=== PATIENT | female | born 1950 | race Caucasian/White ===

== ENCOUNTER 2019-02-18 17:13 | Inpatient (IN) | payer MEDICARE, OTHER, SELFPAY ==
[2019-02-18] VITALS (11 sets, daily range): BP systolic 140–190; BP diastolic 53–71; PULSE 73–78; RESP 16–24; TEMP 37.5–37.6; O2SAT 82–98; BMI 27.4
--- NOTE | 2019-02-18 17:49 | ED_ITS ---
Entered by Corine Guillen, acting as scribe for Feb 18, 2019 17:13 HPI - SOB/Dyspnea General: Chief Complaint: Shortness of Breath/Dyspnea Stated Complaint: cough, low o2 Time Seen by Provider: 02/18/19 17:49 Source: patient and family Mode of arrival: ambulatory Limitations: no limitations History of Present Illness: HPI Narrative: 68 yo female presents to ED with complaints of shortness of breath. The patient states she was sent to [facility] from the dialysis clinic today due to her shortness of breath. The patient said [facility] was unable to get her oxygen level up so they instructed the patient to come to the ER. The patient had cough beginning Thursday that had pretty much went away yesterday, but early this morning she woke with an increased cough. MD elicited complaint: shortness of breath and cough Onset (ago): day(s) (today) Context: recent illness Timing: constant Severity: severe Exacerbating factors: nothing Relieving factors: nothing Known history of: other (renal failure) Associated symptoms: Reports chest congestion; Deny abdominal pain, chest pain, diaphoresis, dizziness, extremity pain, fever(s), nausea, palpitations, polydipsia, syncope or vomiting Related Data: Home oxygen amount: none Review of Systems General: Reports: other (negative unless marked) Const: Denies: fever, chills, body aches, fatigue, malaise or diaphoresis Eyes: Denies: change in vision or blurry vision ENMT: Denies: throat pain, painful swallowing, hoarseness, ear pain, ear discharge, Change in hearing or nasal discharge Card: Denies: chest pain, palpitations, irregular heart rhythm, syncope or pre-syncope Resp: Reports: chest congestion GI: Denies: abdominal pain, nausea, vomiting, vomiting blood, coffee grounds in vomit, diarrhea, constipation, cramping, blood in stool or black tarry stool : Denies: flank pain, painful urination, urinary frequency, urinary urgency, decreased urine ouput, urinary incontinence or blood in urine Musc: Denies: neck pain, back pain, extremity pain, extremity swelling, joint pain, joint swelling, joint warmth or joint stiffness Skin/Breast: Denies: rash, skin tenderness or yellow skin Neuro: Denies: headache, numbness in extremities, weakness in extremities, changes in sensation, lack of coordination, difficulty walking, dizziness, vertigo or confusion Endo: Denies: excessive thirst, tired all the time, cold intolerance, excessive sweating, flushing or hot flashes Ben/Lymph: Denies: easy bruising, easy bleeding, petechiae or enlarged lymph nodes All/Imm: Denies: hives, throat swelling, tongue swelling, facial swelling or acute wheezing PFSH ED PFSH: Statuses (acute, chronic, etc) shown below reflect problem list status as previously entered and may not be historically accurate Social History Smoking and tobacco status: never smoked Alcohol intake: never Physical Exam Const: COMMON NORMALS: no apparent distress, oriented x3, no limitations, healthy appearing and well nourished EXAM LIMITATIONS: no altered mental status GENERAL APPEARANCE: cooperative, well kempt and well developed ORIENTATION/CONSCIOUSNESS: Yes awake HENMT: COMMON NORMALS: normocephalic, head/scalp atraumatic, hearing grossly normal bilaterally, external ears normal, EAC's normal, external nose normal and moist oral mucous membranes HEAD & SCALP: normal to inspection, normocephalic and atraumatic FACE & SINUS: normal facial exam and face symmetric NOSE: external nose normal and nares normal EXTERNAL EAR: Yes external ears normal EXTERNAL AUDITORY CANAL: EAC's normal MOUTH: oral and palatal mucosa normal and tongue normal Eye: COMMON NORMALS: PERRL, EOMs intact bilaterally, conjunctivae normal and no scleral icterus GENERAL EYE: normal appearance of both eyes and normal light reflex CONJUNCTIVA: Yes conjunctivae normal SCLERA: sclerae normal CORNEA: Yes corneas normal PUPIL: Yes PERRL DIRECT OPHTHALMOSCOPY: Yes normal light reflex Neck/C-Spine: COMMON NORMALS: full ROM, no lymphadenopathy, supple, no meningeal signs and no JVD GENERAL: Yes normal visual inspection and Yes trachea midline CERVICAL SPINE: Yes cervical ROM normal Chest: COMMONS NORMALS: inspection of chest normal and palpation of chest normal Resp: COMMON NORMALS: normal respiratory effort, no retractions and no use of accessory muscles EFFORT & INSPECTION: Yes able to speak in complete sentences AUSCULTATION: rhonchi, wheezes and diminished lung sounds Cardio: COMMON NORMALS: no JVD, regular rate, regular rhythm, S1 normal heart sound, S2 normal heart sound, no gallops, no clicks, no murmurs and no rub JUGULAR VENOUS DISTENTION: no JVD RATE: regular rate RHYTHM: regular rhythm HEART SOUNDS: S1 normal and S2 normal GI: COMMON NORMALS: soft to palpation, non-tender, no hepatosplenomegaly and no masses INSPECTION: Yes normal to inspection PALPATION: Yes soft and Yes no hepatosplenomegaly : COMMON NORMALS: Yes no CVA tenderness BLADDER/KIDNEY EXAM: Yes no CVA tenderness Back/Pelvis: COMMON NORMALS: no CVA tenderness, thoracic and lumbar spine normal to inspection, no thoracic nor lumbar tenderness and thoraco-lumbar ROM n ormal Extremity: COMMON NORMALS: normal to inspection, full ROM, normal capillary refill, no joint enlargement, no clubbing, cyanosis or edema and no calf tenderness Neuro: COMMON NORMALS: oriented x3, CN's II-XII intact bilaterally, moves all extremities, no focal motor deficits and no sensory deficits noted MENINGEAL SIGNS: Yes no meningeal signs Psych: COMMON NORMALS: mental status grossly normal, thought process normal, cooperative, affect normal, speech normal and activity/motor behavior normal APPEARANCE: Yes well kempt SPEECH: Yes normal speech THOUGHT PROCESS: normal thought process Skin: COMMON NORMALS: no rashes or lesions noted, skin turgor normal, no jaundice, no petechiae and no mottling GENERAL SKIN EXAM: no rashes or lesions noted and turgor normal Course Vital Signs: Vital signs: Vital Signs Temperature 99.7 F H 02/18/19 17:24 Pulse Rate 73 02/18/19 18:43 Respiratory Rate 18 02/18/19 21:33 Blood Pressure 173/60 02/18/19 17:24 Pulse Oximetry 92 02/18/19 21:33 MDM - SOB/Dyspnea MDM Narrative: Medical decision making narrative: Lady is a very nice 68-year-old female who comes in for shortness of breath. She has a cough that is worse than her normal and it is productive of yellow phlegm. She is wheezing. She feels better after breathing treatments here. She is mildly hypoxic and had mild respiratory distress that has resolved. She is relatively immunosuppressed as she has end-stage renal disease and is on dialysis. Her chest x-ray could show vascular congestion but she had a full course of dialysis today so the concern of pneumonia I think is more likely. The patient is also immune suppressed for her rheumatoid arthritis. I reviewed the case in full with Dr. Vanessa who is agreeable to admission for further evaluation and care. Lab Data: Labs: Lab Results 02/18/19 02/18/19 02/18/19 Range/Units 18:07 18:07 18:07 WBC 6.8 (4.0-10.0) 10^3/ uL RBC 3.25 L (4.1-5.3) 10^6/u L Hgb 10.2 L (11.5-15.3) g/dL Hct 33.1 L (37.0-47.0) % MCV 101.8 H (81-99) fL MCH 31.4 (28.0-34.0) pg MCHC 30.8 (30.0-36.0) g/dL RDW 14.8 (12.1-15.1) % Plt Count 128 L (130-400) 10^3/c mm MPV 11.1 H (7.4-10.4) fL Neut % (Auto) 79.5 % Lymph % (Auto) 12.0 % Mingo % (Auto) 7.5 % Eos % (Auto) 0.4 % Baso % (Auto) 0.3 % Neut # (Auto) 5.4 (1.8-7.7) 10^3/u L Lymph # (Auto) 0.8 (0.8-4.8) 10^3/u L Mingo # (Auto) 0.5 (0.2-0.9) 10^3/u L Eos # (Auto) 0.0 (0.0-0.8) 10^3/u L Baso # (Auto) 0.0 (0.0-0.1) 10^3/u L Nucleated RBC % (a uto) 0 % Nucleated RBCs # 0.0 /100WBC PT 13.80 H (10.5-13.3) SECO NDS INR 1.03 (0.8-1.2) Sodium 134 L (136-145) mmol/L Potassium 3.4 L (3.5-5.1) mmol/L Chloride 90 L (98-107) mmol/L Carbon Dioxide 30 H (22-29) mmol/L Anion Gap 17.4 (5-19) BUN 27 H (8-23) mg/dL Creatinine 3.4 H (0.5-0.9) mg/dL GFR Calculation 13.4 L (90-130) mL/min Glucose 107 H (74-106) mg/dL POC Glucose (70-110) mg/dL Lactic Acid (0.5-2.2) mmol/L Calcium 10.0 (8.8-10.2) mg/Dl Magnesium 2.2 (1.7-2.3) mg/dL Total Bilirubin 0.2 (0.15-1.2) mg/dL AST 32 (0-32) U/L ALT 29 (0-33) U/L Alkaline Phosphata se 162 H (35-105) IU/L Troponin T Baselin e (0-10) ng/mL Troponin T 120 Min enterprise (0-10) ng/mL Delta Troponin T (0-10) ABS# NT-Pro-B Natriuret Pep 27666 H (0-125) pg/mL Total Protein 8.1 (6.6-8.7) g/dL Albumin 4.2 (3.5-5.2) g/dL Globulin 3.9 (1.3-4.6) g/dL 02/18/19 02/18/19 02/18/19 Range/Units 18:07 18:07 20:07 WBC (4.0-10.0) 10^3/ uL RBC (4.1-5.3) 10^6/u L Hgb (11.5-15.3) g/dL Hct (37.0-47.0) % MCV (81-99) fL MCH (28.0-34.0) pg MCHC (30.0-36.0) g/dL RDW (12.1-15.1) % Plt Count (130-400) 10^3/c mm MPV (7.4-10.4) fL Neut % (Auto) % Lymph % (Auto) % Mingo % (Auto) % Eos % (Auto) % Baso % (Auto) % Neut # (Auto) (1.8-7.7) 10^3/u L Lymph # (Auto) (0.8-4.8) 10^3/u L Mingo # (Auto) (0.2-0.9) 10^3/u L Eos # (Auto) (0.0-0.8) 10^3/u L Baso # (Auto) (0.0-0.1) 10^3/u L Nucleated RBC % (a uto) % Nucleated RBCs # /100WBC PT (10.5-13.3) SECO NDS INR (0.8-1.2) Sodium (136-145) mmol/L Potassium (3.5-5.1) mmol/L Chloride (98-107) mmol/L Carbon Dioxide (22-29) mmol/L Anion Gap (5-19) BUN (8-23) mg/dL Creatinine (0.5-0.9) mg/dL GFR Calculation (90-130) mL/min Glucose (74-106) mg/dL POC Glucose (70-110) mg/dL Lactic Acid 0.8 (0.5-2.2) mmol/L Calcium (8.8-10.2) mg/Dl Magnesium (1.7-2.3) mg/dL Total Bilirubin (0.15-1.2) mg/dL AST (0-32) U/L ALT (0-33) U/L Alkaline Phosphata se (35-105) IU/L Troponin T Baselin e 17 H (0-10) ng/mL Troponin T 120 Min enterprise 19.52 H (0-10) ng/mL Delta Troponin T 2.52 (0-10) ABS# NT-Pro-B Natriuret Pep (0-125) pg/mL Total Protein (6.6-8.7) g/dL Albumin (3.5-5.2) g/dL Globulin (1.3-4.6) g/dL 02/18/19 Range/Units 21:39 WBC (4.0-10.0) 10^3/ uL RBC (4.1-5.3) 10^6/u L Hgb (11.5-15.3) g/dL Hct (37.0-47.0) % MCV (81-99) fL MCH (28.0-34.0) pg MCHC (30.0-36.0) g/dL RDW (12.1-15.1) % Plt Count (130-400) 10^3/c mm MPV (7.4-10.4) fL Neut % (Auto) % Lymph % (Auto) % Mingo % (Auto) % Eos % (Auto) % Baso % (Auto) % Neut # (Auto) (1.8-7.7) 10^3/u L Lymph # (Auto) (0.8-4.8) 10^3/u L Mingo # (Auto) (0.2-0.9) 10^3/u L Eos # (Auto) (0.0-0.8) 10^3/u L Baso # (Auto) (0.0-0.1) 10^3/u L Nucleated RBC % (a uto) % Nucleated RBCs # /100WBC PT (10.5-13.3) SECO NDS INR (0.8-1.2) Sodium (136-145) mmol/L Potassium (3.5-5.1) mmol/L Chloride (98-107) mmol/L Carbon Dioxide (22-29) mmol/L Anion Gap (5-19) BUN (8-23) mg/dL Creatinine (0.5-0.9) mg/dL GFR Calculation (90-130) mL/min Glucose (74-106) mg/dL POC Glucose 103 (70-110) mg/dL Lactic Acid (0.5-2.2) mmol/L Calcium (8.8-10.2) mg/Dl Magnesium (1.7-2.3) mg/dL Total Bilirubin (0.15-1.2) mg/dL AST (0-32) U/L ALT (0-33) U/L Alkaline Phosphata se (35-105) IU/L Troponin T Baselin e (0-10) ng/mL Troponin T 120 Min enterprise (0-10) ng/mL Delta Troponin T (0-10) ABS# NT-Pro-B Natriuret Pep (0-125) pg/mL Total Protein (6.6-8.7) g/dL Albumin (3.5-5.2) g/dL Globulin (1.3-4.6) g/dL Imaging Data^: CXR: My impression: Pulmonary vascular congestion versus atypical pneumonia. EKG Data^: EKG 1: Attestation: I personally reviewed and interpreted this EKG as follows: (EKG performed and read at 1815 -normal sinus rhythm at 75 beats a minute, nonspecific ST-T wave changes.) Discharge Plan Discharge Patient Disposition: Placed in Observation Admit Provider: Ale Pina Clinical Impression: Community acquired pneumonia Condition: Stable Interventions: ED Discharge Assessment Last Done: 02/18/19 22:10 Coding Level of Care Code ED Car Stower for Chg Fwd The documentation recorded by the Wilmer ruiz Valerie R, accurately reflects the service I personally performed and the decisions made by Lázaro martinez Eli N Feb 18, 2019 17:13
--- NOTE | 2019-02-18 17:49 | XRR_ITS ---
PROCEDURE INFORMATION: Exam: XR Chest, 1 View Exam date and time: 02/18/2019 5:55 PM Age: 68 years old Clinical indication: Cough and fever TECHNIQUE: Imaging protocol: XR of the chest Views: 1 view. COMPARISON: CR Chest 1 [place] [id number] 06/02/2018 5:40 PM FINDINGS: Lungs: In the retrocardiac medial left lower lobe, there is a subtle area of opacity new since the prior exam concerning for small infiltrate or atelectasis. Central vessels are mildly prominent with cephalization of flow and probable trace interstitial edema. Pleural space: Unremarkable. No pleural effusion. No pneumothorax. Heart/Mediastinum: The heart is enlarged. Bones/joints: There is osteopenia with severe degenerative changes in the shoulders and spine. There is a stable chondroid type lesion of the proximal right humerus measuring 5.6 cm in length. This has characteristics of a chondroid lesion such as an enchondroma without definite aggressive characteristics by plain film. XR/XR chest 1V portable [id number] IMPRESSION: 1. New subtle opacity in the left lower lobe concerning for atelectasis versus infiltrate. 2. Central vessels are mildly prominent with cephalization of flow and probable trace interstitial edema. 3. Unchanged large chondroid matrix lesion proximal right humerus. 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 Please note however that lesions measuring over 3 cm in size do have an increased risk of malignant degeneration. If there is clinical history a shoulder pain, MRI with and without contrast would be recommended to further characterize the abnormality.
--- NOTE | 2019-02-18 17:50 | ECG_ITS ---
Measurements Intervals [place] Rate: 69 P: 21 MS: 178 QRS: -17 QRSD: 106 T: 26 QT: 460 QTc: 496 SINUS RHYTHM WITH OCCASIONAL SUPRAVENTRICULAR PREMATURE COMPLEXES VOLTAGE CRITERIA FOR LVH [MEETS CRITERIA IN ONE OF: R(aVL), S(V1), R(V5), R(V5/V6) +S(V1)] PROLONGED QT INTERVAL INTERPRETATION BASED ON A DEFAULT AGE OF 40 YEARS Compared to ECG 06/02/2018 20:42:02 No significant changes Electronically Signed On 02-19-2019 16:44:22 JOINTER MACHINE OPERATOR by Dali Farrell M.D. [id number]
[2019-02-18] MEDS: ipratropium-albuterol 3 mL Neb 9 ML INHALATION (18:27)
[2019-02-18 18:36] LABS: INR 1.03 (0.8-1.2)
[2019-02-18 18:45] LABS: Lactic Sepsis W/Reflex 0.8 mmol/L (0.5-2.2)
[2019-02-18 18:49] LABS: Troponin(5th) Baseline 17 ng/mL (0-10)
[2019-02-18 18:51] LABS: Basophils % 0.3 %; Eosinophils % 0.4 %; Hematocrit 33.1 % (37.0-47.0); Hemoglobin 10.2 g/dL (11.5-15.3); Lymphocytes # 0.8 10^3/uL (0.8-4.8); Mean Corpuscular HGB Conc 30.8 g/dL (30.0-36.0); Mean Corpuscular Hemoglobin 31.4 pg (28.0-34.0); Mean Corpuscular Volume 101.8 fL (81-99); Mean Platelet Volume 11.1 fL (7.4-10.4); Monocytes # 0.5 10^3/uL (0.2-0.9); Monocytes % 7.5 %; Neutrophils # 5.4 10^3/uL (1.8-7.7); Neutrophils % 79.5 %; Nucleated Red Blood Cells % 0 %; Platelet Count 128 10^3/cmm (130-400); Red Blood Count 3.25 10^6/uL (4.1-5.3); Red Cell Distribution Width 14.8 % (12.1-15.1); White Blood Count 6.8 10^3/uL (4.0-10.0)
[2019-02-18 18:56] LABS: Alanine Aminotransferase 29 U/L (0-33); Albumin Level 4.2 g/dL (3.5-5.2); Alkaline Phosphatase 162 IU/L (35-105); Anion Gap 17.4 (5-19); Aspartate Amino Transferase 32 U/L (0-32); Blood Urea Nitrogen 27 mg/dL (8-23); Carbon Dioxide 30 mmol/L (22-29); Chloride 90 mmol/L (98-107); Globulin 3.9 g/dL (1.3-4.6); Glomerular Filtration Rate 13.4 mL/min (90-130); Glucose 107 mg/dL (74-106); Magnesium 2.2 mg/dL (1.7-2.3); NT Pro B Type Natriuretic Pept 10287 pg/mL (0-125); Potassium 3.4 mmol/L (3.5-5.1); Sodium 134 mmol/L (136-145); Total Bilirubin 0.2 mg/dL (0.15-1.2); Total Protein 8.1 g/dL (6.6-8.7)
--- NOTE | 2019-02-18 19:50 | ECG_ITS ---
Measurements Intervals [place] Rate: 76 P: 3 [place]: 169 QRS: -18 QRSD: 106 T: 54 QT: 357 QTc: 403 SINUS RHYTHM WITH OCCASIONAL SUPRAVENTRICULAR PREMATURE COMPLEXES LEFT VENTRICULAR HYPERTROPHY AND ST-T CHANGE [VOLTAGE CRITERIA PLUS ST/T AB ABNORMALITY] Compared to ECG 06/02/2018 20:42:02 ST (T wave) deviation now present Prolonged QT interval no longer present Electronically Signed On 02-19-2019 16:50:23 CAUSTIC OPERATOR by Dali Farrell M.D. [id number] f
--- NOTE | 2019-02-18 20:00 | PC.NURSE ---
IV ACCESS ATTEMPTED X'S 2 STICKS. 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 PT TOLERATING IV ATTEMPTS POORLY. DR HOOPER NOTIFIED, INSTRUCTED TO CONTINUE TO TRY FOR IV ACCESS PT NEEDS MEDICATIONS THAT HAVE BEEN ORDERED.
[2019-02-18] MEDS: piperacillin-tazobactam 3.375 GM in sodium chloride 0.9% (plus) 50 ML IV (20:08)
[2019-02-18 20:38] LABS: Troponin 5 2HR 19.52 ng/mL (0-10); Troponin 5 2HR Delta 2.52 ABS# (0-10)
[2019-02-18] MEDS: morphine 4 mg/mL SDV 1 mL 2 MG IVP (21:33)
[2019-02-18] MEDS: ondansetron 2 mg/ML SDV 2 mL 4 MG IVP (21:34)
[2019-02-18 21:45] LABS: Glucose Point of Care 103 mg/dL (70-110)
[2019-02-18 22:13] LABS: Urine Appearance Bloody (CLEAR); Urine Color Red (Yellow); pH Urine 6 (5-7)
[2019-02-18 22:14] LABS: Add Urine Culture? Yes; Bacteria Urine 2+; Bilirubin Urine 1+ (NEGATIVE); Blood Urine 3+ (Negative); Glucose Urine UA Norm (Normal); Ketones Urine 1+ (Negative); Leukocyte Esterase Urine 2+ (Negative); Nitrate Urine Negative (Negative); Protein Urine 3+ (Negative); RBC Urine TOO NUMEROUS TO CNT /hpf (0-2); Urobilinogen Urine Norm (Negative)
--- NOTE | 2019-02-18 23:50 | ECG_ITS ---
Measurements Intervals [place] Rate: 75 P: 68 [place]: 169 QRS: 15 QRSD: 97 T: 40 QT: 413 QTc: [address] DEPRESSION [0.05+ mV ST DEPRESSION] Compared to ECG 06/02/2018 20:42:02 ST (T wave) deviation now present Left ventricular hypertrophy no longer present Prolonged QT interval no longer present Electronically Signed On 02-19-2019 16:49:58 COLLECTION CORRESPONDENT by Dali Farrell M.D. [email or web address]
[2019-02-19] VITALS (17 sets, daily range): BP systolic 104–192; BP diastolic 58–88; PULSE 57–77; RESP 17–20; TEMP 36.5–37.5; O2SAT 92–98; BMI 28.0
--- NOTE | 2019-02-19 00:09 | PC.PHAR ---
Zosyn dose is adjusted from 3.375gm IVPB every 8 hours to 3.375gm IVPB every 12 hours due to creatinine clearance of 11.37.
[2019-02-19 01:02] LABS: Troponin 5 6HR 20.84 ng/L (0-10); Troponin 5 6HR Delta 3.84 ng/L (0-12)
[2019-02-19 02:43] LABS: Influenza A by IFA Negative (Negative); Influenza B by IFA Negative (Negative)
--- NOTE | 2019-02-19 04:57 | PM.HP ---
Providers/Chief Complaint Admitting Physician: Ale Pina MD Primary Care Provider: Erwin Layne MD Chief Complaint: cough, low o2 History of Present Illness Lady Woodward is a 69 year old female who presented to the emergency room with hypoxemia, shortness of breath and cough. She started not feeling well on Thursday. At that point she had a mildly productive cough. Symptoms have progressively worsened through the week. On Thursday she woke up coughing and it was quite severe. Cough is been productive of yellowish sputum. No blood is been noted. She has been more short of breath with less exertion. She did keep her usual dialysis appointment on Thursday but they sent her to the urgent care clinic. At the urgent care clinic she was noted to be hypoxic and they recommended that she come to the emergency room. She has no personal history of pulmonary disease associated with her rheumatoid arthritis. No history of heart failure. She was able to have her full episode of dialysis today. She has never required oxygen before. On arrival to the emergency room saturations were 82% on room air. With 3 L by nasal cannula saturations came up to the mid 90s. Chest x-ray showed an opacity in the left lower lobe concerning for atelectasis versus infiltrate. Patient received Solu-Medrol, breathing treatment and antibiotics. She is being admitted for further evaluation and treatment. Of note patient received last dose of Rituxan for rheumatoid arthritis on February 01. She skipped this past week's dose due to her cough and not feeling well. She has had issues with recurrent infections in her left hand. Last dose of Rituxan prior to February 01 was back in September. Review of Systems Const: Reports: fever (Low-grade), chills, fatigue and malaise Eyes: Denies: change in vision ENMT: Reports: throat pain (Mild) and nasal congestion Card: Reports: lightheadedness; Denies: chest pain, palpitations, irregular heart rhythm, edema or shortness of breath when lying down Resp: Reports: shortness of breath, productive cough, wheezing and chest congestion; Denies: coughing up blood GI: Denies: abdominal pain, vomiting, diarrhea or constipation : Reports: other (makes very little urine); Denies: flank pain Musc: Reports: back pain, extremity pain, joint pain and muscle weakness; Denies: redness or joint warmth Skin/Breast: Reports: sores (healed to left 4th digit, but metal wire now sticks out from old sugery); Denies: rash or itching Neuro: Reports: difficulty walking (chronic, not acute); Denies: headache or frequent falls Psych: Denies: depression Medications/Allergies Home Medications Medication Instructions Recorded Confirmed Last Taken Type amlodipine 10 mg PO BID 02/18/19 02/18/19 02/18/19 History clonidine HCl 0.1 mg PO Q6H PRN 02/18/19 02/18/19 Unknown History diazepam 5 mg PO BID PRN 02/18/19 02/18/19 02/17/19 History hydrocodone-acetaminophen 1 tab PO QID PRN 02/18/19 02/18/19 02/18/19 History labetalol 400 mg PO TID 02/18/19 02/18/19 02/17/19 History budesonide [Entocort EC] 3 mg PO DAILY 02/19/19 02/19/19 02/18/19 07:00 History sevelamer carbonate [Renvela] 800 mg PO TID 02/19/19 02/19/19 02/18/19 12:00 History Allergies Allergy/AdvReac Type Severity Reaction Status Date / Time adhesive Allergy Unknown Unknown Verified 02/18/19 18:23 codeine Allergy Unknown Unknown Verified 02/18/19 18:23 levofloxacin [From Levaquin] Allergy Unknown Unknown Verified 02/18/19 18:23 propoxyphene Allergy Unknown Unknown Verified 02/18/19 18:23 Sulfa (Sulfonamide Allergy Unknown Unknown Verified 02/18/19 18:23 Antibiotics) sulfamethoxazole Allergy Unknown Unknown Verified 02/18/19 18:23 [From Bactrim] tramadol Allergy Unknown Unknown Verified 02/18/19 18:23 trimethoprim [From Bactrim] Allergy Unknown Unknown Verified 02/18/19 18:23 PFSH Acute PFSH: Statuses (acute, chronic, etc) shown below reflect problem list status as previously entered and may not be historically accurate Medical History (Updated 02/19/19 @ 07:50 by Ale Pina MD) Anemia in chronic kidney disease (Acute) ESRD (end stage renal disease) on dialysis (Acute) FSGS, collapsing, 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 Initially on PD and then transitioned to hemodialysis. Thursday. June. History of peritoneal dialysis (Acute) Add Enterobacter followed by fungal peritonitis leading to PD catheter removal in 2012 Hypertension (Acute) Microscopic colitis (Acute) on endocort Obstructive sleep apnea (Acute) intolerant of cpap Osteoporosis (Acute) Rheumatoid arthritis (Acute) Follows with Dr Russell, on Rituxan. Seropositive. Previously failed gold, sulfasalazine, methotrexate, leflunomide, infliximab, humira, entanercept. Secondary hyperparathyroidism (of renal origin) (Acute) Surgical History (Updated 02/19/19 @ 06:52 by Ale Pina MD) History of ankle surgery (Acute) right fusion History of bilateral tubal ligation (Acute) History of cholecystectomy (Acute) History of exploratory laparotomy (Acute) For peritoneal dialysis catheter removal, also had lysis of adhesions History of left-sided carotid endarterectomy (Acute) History of orthopedic surgery (Acute) Left hand. Some wire extrusion 4th digit associated with recurrent infection. History of right hip replacement (Acute) History of total bilateral knee replacement (Acute) Family History (Updated 02/19/19 @ 06:51 by Ale Pina MD) Father Rheumatoid arthritis Social History Smoking and tobacco status: never smoked Alcohol intake: never Vitals/I&O/Wt Last Vital Signs Temp 99.5 F 02/19/19 00:00 Pulse 72 02/19/19 00:45 Resp 17 02/19/19 00:00 BP 192/86 02/19/19 00:00 Pulse Ox 92 02/19/19 00:45 Weight last 48 hrs Weight 61.689 kg Physical Exam Const: COMMON NORMALS: oriented x3 and alert GENERAL APPEARANCE: ill appearing (mild), frail appearing and appears older than stated age HENMT: COMMON NORMALS: normocephalic NOSE: nasal discharge purulent Purulent nasal discharge laterality: bilateral MOUTH: oral and palatal mucosa normal THROAT: posterior oropharynx normal Eye: COMMON NORMALS: PERRL, EOMs intact bilaterally and no scleral icterus Neck/C-Spine: OTHER: decreased ROM but at her baseline, non tender Resp: EFFORT & INSPECTION: Yes actively coughing productive and weak and Yes uses accessory muscles (mild) AUSCULTATION: wheezes expiratory wheezes, right lower, left upper and right upper Cardio: COMMON NORMALS: regular rate and regular rhythm OTHER: 1+ pulses, lung sounds obscure heart sounds GI: COMMON NORMALS: normal to inspection, nondistended, normoactive bowel sounds, soft to palpation and non-tender Extremity: COMMON NORMALS: no pedal edema GENERAL: Yes deformity (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) and Yes other findings (can feel tp of metal wire on lateral side of left 4th PIP) Neuro: COMMON NORMALS: oriented x3 and moves all extremities Skin: GENERAL SKIN EXAM: dry skin and ecchymosis (scattered) RASHES: no rashes OTHER: chronic changes bilateral lower extremities Data Micro: Micro: Microbiology 02/18/19 18:21 Blood Culture - Pr eliminary Blood SPECIMEN [facility] 02/18/19 18:07 Blood Culture - Pr eliminary Blood SPECIMEN [facility] Imaging^: CXR: Radiologist's impression: FINDINGS: Lungs: In the retrocardiac medial left lower lobe, there is a subtle area of opacity new since the prior exam concerning for small infiltrate or atelectasis. Central vessels are mildly prominent with cephalization of flow and probable trace interstitial edema. Pleural space: Unremarkable. No pleural effusion. No pneumothorax. Heart/Mediastinum: The heart is enlarged. Bones/joints: There is osteopenia with severe degenerative changes in the shoulders and spine. There is a stable chondroid type lesion of the proximal right humerus measuring 5.6 cm in length. This has characteristics of a chondroid lesion such as an enchondroma without definite aggressive characteristics by plain film. XR/XR chest 1V portable [id number] IMPRESSION: 1. New subtle opacity in the left lower lobe concerning for atelectasis versus infiltrate. 2. Central vessels are mildly prominent with cephalization of flow and probable trace interstitial edema. 3. Unchanged large chondroid matrix lesion proximal right humerus. 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 Please note however that lesions measuring over 3 cm in size do have an increased risk of malignant degeneration. If there is clinical history a shoulder pain, MRI with and without contrast would be recommended to further characterize the abnormality. Other Data: Other data: Short CBC 02/18/19 Range/Units 18:07 WBC 6.8 (4.0-10.0) 10^3/ uL Hgb 10.2 L (11.5-15.3) g/dL Hct 33.1 L (37.0-47.0) % Plt Count 128 L (130-400) 10^3/c mm BMP 02/18/19 18:07 Sodium 134 L Potassium 3.4 L Chloride 90 L Carbon Dioxide 30 H BUN 27 H Creatinine 3.4 H Glucose 107 H Calcium 10.0 Liver Function 02/18/19 Range/Units 18:07 Total Bilirubin 0.2 (0.15-1.2) mg/dL AST 32 (0-32) U/L ALT 29 (0-33) U/L Alkaline Phosphata se 162 H (35-105) IU/L Albumin 4.2 (3.5-5.2) g/dL Urine 02/18/19 Range/Units 20:57 Urine Color Red (Yellow) Urine Appearance Bloody A (CLEAR) Urine pH 6 (5-7) Ur Specific Gravit y 1.010 (1.005-1.030) Urine Protein 3+ H (Negative) Urine Glucose (UA) Norm (Normal) A&P Assessment and plan (1) Community acquired pneumonia: Clinical diagnosis. Could be viral or bacterial, but with immunocompromise from Rituxan, will cover empirically with antibiotics. Pulmonary edema seems a less likely explanation with purulent sputum, low grade fever and such. Currently requiring oxygen therapy which she is not usually on. Status: Acute Qualifiers: Laterality: right Lung location: unspecified part of lung Qualified Code(s): J18.9 - Pneumonia, unspecified organism Code(s): J18.9 - Pneumonia, unspecified organism (2) ESRD (end stage renal disease) on dialysis: [facility] Status: Acute Code(s): N18.6 - End stage renal disease; Z99.2 - Dependence on renal dialysis (3) Rheumatoid arthritis: Chronically on Rituxan, last dose 02/01 Status: Acute Qualifiers: Rheumatoid arthritis location: multiple sites Rheumatoid factor presence: with rheumatoid factor Qualified Code(s): M05.79 - Rheumatoid arthritis with rheumatoid factor of multiple sites without organ or systems involvement Code(s): M06.9 - Rheumatoid arthritis, unspecified (4) Microscopic colitis: Chronic on endocort Status: Acute Qualifiers: Microscopic colitis type: collagenous colitis Qualified Code(s): K52.831 - Collagenous colitis Code(s): K52.839 - Microscopic colitis, unspecified (5) Hypertension: chronically on amlodipine, clonidine, labetolol Status: Acute Qualifiers: Hypertension type: renovascular hypertension Qualified Code(s): I15.0 - Renovascular hypertension Code(s): I10 - Essential (primary) hypertension Additional A&P Information Additional A&P Information: Other Diagnoses: Abnormal urinalysis >> feel secondary to concentrated specimen in dialysis pt, but does have some blood noted Anemia of chronic kidney disease Unremarkable delta for high-sensitivity troponin Elevated BNP in a dialysis patient though clinically does not appear volume overloaded. Does have significant cardiomegaly. Does not have a known history of CHF. Obstructive sleep apnea intolerant of CPAP Abnormality noted on chest x-ray of the right humerus Plan: Inpatient admission Broad-spectrum antibiotics initially Follow-up pending cultures Patient does not wish to have systemic steroids unless absolutely necessary so I have not continued them. Add inhaled steroids in the form of budesonide and Flonase to augment treatment Breathing treatments as needed Wean oxygen as able Patient refused ABG due to discomfort with attempts to get it at the wrist secondary to rheumatoid arthritis PT evaluation and treatment Will need to consult nephrology if she is still here on Thursday for her next dialysis treatment Continue usual antihypertensive medications May continue home Entocort for colitis Echocardiogram as I do not see that patient has had one before at least not here and known RA and CKD, RANDY Subcutaneous heparin for DVT prophylaxis Supportive care otherwise Recommend follow-up with etl consultant for abnormalities noted in the right humerus Monitor closely for any acute changes Full code Plans discussed with patient and her and all questions were answered Attestations Medical Necessity Statement*: Anticipated stay greater than 2 midnights in a patient with rheumatoid arthritis as well as chronic kidney disease on hemodialysis presenting with cough and shortness of breath, requiring oxygen. Clinically she has community-acquired pneumonia. She is immunocompromise due to biologic agents for rheumatoid arthritis combined with other comorbid conditions and at high risk of rapid clinical decline. Coding Level of Care Code Acute Jigger Machine Operator for [facility] Fwd Diagnoses Community acquired pneumonia J18.9 Laterality: right Lung location: unspecified part of lung ESRD (end stage renal disease) on dialysis N18.6; Z99.2 Rheumatoid arthritis M05.79 Rheumatoid arthritis location: multiple sites Rheumatoid factor presence: with rheumatoid factor Microscopic colitis K52.831 Microscopic colitis type: collagenous colitis Hypertension I15.0 Hypertension type: renovascular hypertension
--- NOTE | 2019-02-19 05:20 | PC.PHAR ---
Vancomycin is dosed at 500mg IVPB every 48 hours to produce a predicted trough level of 12.12 (population based pharmacokinetic analysis). A trough level has been ordered from the lab to be obtained before the third dose to confirm and adjust if needed.
[2019-02-19] MEDS: ipratropium-albuterol 3 mL Neb INHALATION ×4 (05:38→23:31)
[2019-02-19] MEDS: heparin 5,000 unit/mL INJ 1 mL 5000 UNIT SUBCUT ×2 (06:38→17:24)
[2019-02-19 07:32] LABS: Basophils % 0.2 %; Hematocrit 33.4 % (37.0-47.0); Hemoglobin 9.8 g/dL (11.5-15.3); Lymphocytes # 0.6 10^3/uL (0.8-4.8); Lymphocytes % 11.1 %; Mean Corpuscular HGB Conc 29.3 g/dL (30.0-36.0); Mean Corpuscular Hemoglobin 31.3 pg (28.0-34.0); Mean Corpuscular Volume 106.7 fL (81-99); Mean Platelet Volume 11.4 fL (7.4-10.4); Monocytes # 0.2 10^3/uL (0.2-0.9); Monocytes % 2.9 %; Neutrophils # 4.9 10^3/uL (1.8-7.7); Neutrophils % 85.5 %; Nucleated Red Blood Cells % 0 %; Platelet Count 133 10^3/cmm (130-400); Red Blood Count 3.13 10^6/uL (4.1-5.3); White Blood Count 5.8 10^3/uL (4.0-10.0)
[2019-02-19 07:36] LABS: Anion Gap 21.3 (5-19); Blood Urea Nitrogen 41 mg/dL (8-23); Calcium 9.9 mg/Dl (8.8-10.2); Carbon Dioxide 25 mmol/L (22-29); Chloride 91 mmol/L (98-107); Glomerular Filtration Rate 8.6 mL/min (90-130); Glucose 141 mg/dL (74-106); Potassium 4.3 mmol/L (3.5-5.1); Sodium 133 mmol/L (136-145)
[2019-02-19] MEDS: budesonide 0.5 mg/2 mL Neb INHALATION ×2 (07:41→20:28)
[2019-02-19] MEDS: amlodipine 10 mg Tablet PO ×2 (08:46→17:24)
[2019-02-19] MEDS: labetalol 200 mg Tablet 400 MG PO ×2 (08:46→15:09)
[2019-02-19] MEDS: piperacillin-tazobactam 3.375 GM in sodium chloride 0.9% (plus) 50 ML IV ×2 (08:46→21:27)
[2019-02-19] MEDS: sevelamer 800 mg Tablet PO ×3 (08:46→17:33)
[2019-02-19] MEDS: fluticasone nasal spray 16gm Btl 2 SPRAY NASAL ×2 (08:46→17:24)
[2019-02-19 12:06] LABS: Glucose Point of Care 122 mg/dL (70-110)
--- NOTE | 2019-02-19 13:23 | CTR_ITS ---
PROCEDURE INFORMATION: Exam: CT Chest Without Contrast Exam date and time: 02/19/2019 1:45 PM Age: 69 years old Clinical indication: Cough and fever and shortness of breath; Additional info: Copd/pna TECHNIQUE: Imaging protocol: Computed tomography of the chest without contrast. Total DLP: 566.94 mGy-cm Radiation optimization: All CT scans at this facility use at least one of these dose optimization techniques: automated exposure control; mA and/or kV adjustment per patient size (includes targeted exams where dose is matched to clinical indication); or iterative reconstruction. COMPARISON: CR XR chest 1V portable [id number] 02/18/2019 5:55 PM FINDINGS: Lungs: Unremarkable. No consolidation. No masses. Pleural space: Unremarkable. No pneumothorax. No pleural effusion. Heart: Unremarkable. No cardiomegaly. No pericardial effusion. Aorta: Unremarkable. No aortic aneurysm. Lymph nodes: Unremarkable. No enlarged lymph nodes. Bones/joints: Chronic appearing stress fracture or pathologic fracture through the junction of the manubrium and sternum, best noted on sagittal images. Possibly secondary to chronic cough and osteoporosis. 70% chronic appearing compression fracture of T12. Multiple prominent chronic appearing compression fractures including T4, T5, T9 and T12. Soft tissues: Unremarkable. CT/CT chest wo con [id number] IMPRESSION: 1. Chronic appearing stress fracture or pathologic fracture through the junction of the manubrium and sternum, best noted on sagittal images. Possibly secondary to chronic cough and osteoporosis. 2. 70% chronic appearing compression fracture of T12. 90% compression fracture of T9. 50% compression fracture T5. 80% compression fracture of T4. 3. Multiple prominent chronic appearing compression fractures including T4, T5, T9 and T12. Radiation Dose CTDIVOL = (mGy): DLP = 566.94 (mGy-cm)
[2019-02-19 14:12] LABS: Procalcitonin 0.33 ng/mL (0-0.8)
[2019-02-19 17:03] LABS: Glucose Point of Care 117 mg/dL (70-110)
--- NOTE | 2019-02-19 18:01 | PC.PT ---
PT note; patient declined attempted evaluation before lunch, came back later found patient to be sleeping,; will reattempt tomorrow
--- NOTE | 2019-02-19 18:36 | PM.PN ---
Subjective Subjective: Interval history: Admitted over night. H&P and lab noted. At present c/o cough and expectoration. Saturating over 90% on 3 l NC. At baseline no O2 supplementation. Denies any N/V, abd pain, palpitations, headache, confusion, CP, dizziness Medications: Reviewed: Yes Vitals/I&O/Wt Last Vital Signs Temp 98.2 F 02/19/19 15:30 Pulse 63 02/19/19 15:30 Resp 18 02/19/19 15:30 BP 156/66 02/19/19 15:30 Pulse Ox 96 02/19/19 15:30 02/19/19 02/19/19 02/19/19 06:59 14:59 22:59 Intake Total 240 / 240 240 / 240 Balance 240 / 240 240 / 240 Weight last 48 hrs Weight 63.049 kg Weight 61.689 kg Physical Exam Narrative: EXAM NARRATIVE: General: No acute distress, AO x3, On NC O2 supplementation. HEENT: PERRLA, pupils bilaterally equal and reactive Chest: B/l coarse crackles present, L>R, ronchi and wheeze present L> R, Ant> Post, equal good air entry bilaterally CVS: S1-S2 regular, no murmurs, no tachycardia, no gallops, no rubs Abdomen: Soft, nontender, no organomegaly, bowel sounds present Neuro: No focal deficits, no facial deformity, AO x3, power 5/5 in all limbs Ext: Fingers chronic rheumatoid changes present Data Micro: Micro: Microbiology 02/18/19 18:21 Blood Culture - Pr eliminary Blood NEGATIVE TO ROBERT E 02/18/19 18:07 Blood Culture - Pr eliminary Blood NEGATIVE TO ROBERT E A&P Assessment and plan (1) Acute respiratory failure with hypoxia: Status: Acute Code(s): J96.01 - Acute respiratory failure with hypoxia (2) Community acquired pneumonia: Status: Acute Qualifiers: Laterality: right Lung location: unspecified part of lung Qualified Code(s): J18.9 - Pneumonia, unspecified organism Code(s): J18.9 - Pneumonia, unspecified organism (3) Immunosuppression: Status: Acute Code(s): D89.9 - Disorder involving the immune mechanism, unspecified (4) ESRD (end stage renal disease) on dialysis: Status: Acute Code(s): N18.6 - End stage renal disease; Z99.2 - Dependence on renal dialysis (5) Rheumatoid arthritis: Status: Acute Qualifiers: Rheumatoid arthritis location: multiple sites Rheumatoid factor presence: with rheumatoid factor Qualified Code(s): M05.79 - Rheumatoid arthritis with rheumatoid factor of multiple sites without organ or systems involvement Code(s): M06.9 - Rheumatoid arthritis, unspecified (6) Anemia in chronic kidney disease: Status: Acute Code(s): N18.9 - Chronic kidney disease, unspecified; D63.1 - Anemia in chronic kidney disease Additional A&P Information Additional A&P Information: Acute hypoxic respiratory failure: CAP: Immunosuppresed due to recent Rituxan use for RA. ANC stable C/w already started Zosyn and vanc. Both renally dosed. f/u Cx an de-escalate accordingly. Sputum Cx, Check procal to have baseline, MRSA swab, Flu swab, urine for legionella. O2 supplementation keeping SPO2 more than 92% budesonide BID, make Duoneb Q6h scheduled, Albuterol as needed No steroids given immunosuppresed status CT chest w/o contrast as most likley patient has some component of RA lung also given the extensive lung exam. Home O2 eval. HTN: BP acceptable. C/w home dose of Amlo and labetalol. Clonidine prn ESRD: C/w home meds Will consult renal tomorrow for scheduled dialysis on MWF. Microscopic colitis: C/w home dose of Entrocort. Anemia: AOCD from CKD. Check iron panel. Most likely will need oral iron supplementation will give procrit once hb less than 8. FC Heparin for DVT Ppx Renal Dialysis diet Attestations Medical Necessity Statement*: Continued hospitaization for Acute hypoxic resp failure due to CAP Coding Level of Care Code Acute Personalized Living Manager Nurse for [facility] Fw Diagnoses Acute respiratory failure with hypoxia J96.01 Community acquired pneumonia J18.9 Laterality: right Lung location: unspecified part of lung Immunosuppression D89.9 ESRD (end stage renal disease) on dialysis N18.6; Z99.2 Rheumatoid arthritis M05.79 Rheumatoid arthritis location: multiple sites Rheumatoid factor presence: with rheumatoid factor Anemia in chronic kidney disease N18.9; D63.1
[2019-02-19 21:17] LABS: Glucose Point of Care 127 mg/dL (70-110)
[2019-02-20] VITALS (16 sets, daily range): BP systolic 98–166; BP diastolic 50–79; PULSE 57–68; RESP 16–20; TEMP 36.3–36.9; O2SAT 91–98
[2019-02-20] MEDS: ipratropium-albuterol 3 mL Neb INHALATION ×5 (03:48→20:14)
[2019-02-20 06:20] LABS: Basophils % 0.5 %; Eosinophils # 0.1 10^3/uL (0.0-0.8); Eosinophils % 1.5 %; Hematocrit 29.9 % (37.0-47.0); Hemoglobin 9.4 g/dL (11.5-15.3); Lymphocytes # 1.1 10^3/uL (0.8-4.8); Lymphocytes % 18.8 %; Mean Corpuscular HGB Conc 31.4 g/dL (30.0-36.0); Mean Corpuscular Volume 104.9 fL (81-99); Mean Platelet Volume 11.4 fL (7.4-10.4); Monocytes # 0.6 10^3/uL (0.2-0.9); Monocytes % 9.6 %; Neutrophils # 4.1 10^3/uL (1.8-7.7); Neutrophils % 69.4 %; Nucleated Red Blood Cells % 0 %; Platelet Count 144 10^3/cmm (130-400); Red Blood Count 2.85 10^6/uL (4.1-5.3); Red Cell Distribution Width 14.7 % (12.1-15.1)
[2019-02-20] MEDS: heparin 5,000 unit/mL INJ 1 mL 5000 UNIT SUBCUT ×2 (06:23→17:36)
[2019-02-20 06:59] LABS: Alanine Aminotransferase 22 U/L (0-33); Albumin Level 3.5 g/dL (3.5-5.2); Alkaline Phosphatase 115 IU/L (35-105); Anion Gap 23.4 (5-19); Aspartate Amino Transferase 32 U/L (0-32); Blood Urea Nitrogen 70 mg/dL (8-23); Calcium 9.8 mg/Dl (8.8-10.2); Carbon Dioxide 25 mmol/L (22-29); Chloride 92 mmol/L (98-107); Globulin 3.1 g/dL (1.3-4.6); Glomerular Filtration Rate 5.9 mL/min (90-130); Glucose 102 mg/dL (74-106); Potassium 4.4 mmol/L (3.5-5.1); Sodium 136 mmol/L (136-145); Total Bilirubin 0.2 mg/dL (0.15-1.2); Total Protein 6.6 g/dL (6.6-8.7)
[2019-02-20] MEDS: budesonide 0.5 mg/2 mL Neb INHALATION ×2 (08:07→20:14)
[2019-02-20] MEDS: labetalol 200 mg Tablet 400 MG PO ×2 (08:18→15:10)
[2019-02-20] MEDS: amlodipine 10 mg Tablet PO (08:18)
[2019-02-20] MEDS: sevelamer 800 mg Tablet PO ×3 (08:18→17:33)
[2019-02-20] MEDS: fluticasone nasal spray 16gm Btl 2 SPRAY NASAL ×2 (08:19→17:33)
[2019-02-20] MEDS: piperacillin-tazobactam 3.375 GM in sodium chloride 0.9% (plus) 50 ML IV ×2 (08:19→20:28)
--- NOTE | 2019-02-20 14:26 | PC.CHAP ---
Pastoral Care Encounter/Spiritual Assessment Type of Contact [] Declined market research associate visit [] Patient/Family/Request visit [] Outpatient visit [] Follow-up visit [] Physician referral [] Code/Alert [x] Routine visit [] Staff referral [] Actively dying [] Patient sleeping [x] Family support [] [] Out of room [] Palliative care [] [] Receiving care in room [] Pre-surgical visit [] Trauma [] Long length of stay [] ICU visit [] Other: Relational/Emotional Strength [x] Patient feels connected with others/family/visitors/staff [] Distress [] Loneliness/isolation [] Abandonment Spirituality of Patient [x] Person of Sarahi [] Attends Jew of their Sarahi [x] Believes in Prayer [] Reads Bible or Christian materials [] There are Spiritual issues to be addressed Pressure Washer Interventions [x] Prayer [x] Active listening [x] Non-anxious presence [x] Spiritual/emotional support [] Crisis/trauma care [] Spiritual counseling [] Bereavement support [] Provided bereavement packet [] Provided Bible/devotional materials [] Provided toy/stuffed animal, coloring book to patient or family member [] Completed spiritual assessment [] Provided Communion [] Anointing/[place] [] Salvation [] Other: Impact on Illness or Injury [] Angry [] Fearful [] Anxious [] Often cries [] Exhaustion [] Unable to work [] Unable to attend mormon [] Unable to walk/stand [] Unable to read [] Unable to drive [] Unable to eat/drink [] Unable to sleep [] Unable to be with family [] Other: Summary patient was very tired, did have prayer ,. family was present. Time spent with patient 10 min.
--- NOTE | 2019-02-20 17:26 | PM.PN ---
Subjective Subjective: Interval history: Thanks for consult. Mrs Woodward is coming in with cough, fever, sputum production for the last few days since Thursday. On Abx since admission inc Zosyn and Vanco Last dialyzed on Thursday, full session. AVF in the right arm, working well without issues. Under the care of Dr Gong. No uremic Sx. No edema and no other volume assoc Sx Vitals/I&O/Wt Last Vital Signs Temp 98.3 F 02/20/19 16:00 Pulse 63 02/20/19 16:00 Resp 18 02/20/19 16:00 BP 115/60 02/20/19 16:00 Pulse Ox 94 02/20/19 16:00 02/20/19 02/20/19 02/20/19 06:59 14:59 22:59 Intake Total 170 / 460 480 / 480 Balance 170 / 460 480 / 480 Weight last 48 hrs Weight 63.367 kg Weight 63.049 kg Physical Exam HENMT: COMMON NORMALS: normocephalic and head/scalp atraumatic HEAD & SCALP: normocephalic and atraumatic Eye: COMMON NORMALS: PERRL and EOMs intact bilaterally PUPIL: Yes PERRL Neck/C-Spine: COMMON NORMALS: full ROM, no lymphadenopathy and no JVD Resp: COMMON NORMALS: normal respiratory effort AUSCULTATION: normal I/E ratio and wheezes Cardio: COMMON NORMALS: no JVD and regular rate RATE: regular rate GI: COMMON NORMALS: normal to inspection, nondistended, normoactive bowel sounds : COMMON NORMALS: Yes no CVA tenderness and Yes external appearance normal BLADDER/KIDNEY EXAM: Yes no CVA tenderness Back/Pelvis: COMMON NORMALS: no CVA tenderness Extremity: COMMON NORMALS: normal to inspection NARRATIVE EXTREMITY EXAM: AVF with bruit Data Micro: Micro: Microbiology 02/20/19 09:35 MRSA Culture - Fin al Nose 02/18/19 20:57 Urine Culture - Pr eliminary Urine,Clean Catch Gram Negative R ods 02/18/19 18:21 Blood Culture - Pr eliminary Blood NEGATIVE TO ROBERT E 02/18/19 18:07 Blood Culture - Pr eliminary Blood NEGATIVE TO ROBERT E A&P Additional A&P Information Additional A&P Information: 1. ESRD - Currently on MWF schedule - last session on Thursday - under the care of June - 3.5hrs, 2.5hrs, - right arm AVF 2. Pneumonia - on Abx; Vanco and Zosyn - cultures pending 3. Hypertension - Bp looks well controlled 4. Anemia and bone metabolism of ESRD - defer mgmt to OP clinic - cont home meds with binder therapy Attestations Medical Necessity Statement*: eval for ESRD mgmt Coding Level of Care Code Acute Conduit Bender for [employer]
--- NOTE | 2019-02-20 18:52 | PM.PN ---
Subjective Subjective: Interval history: No acute events. States feeling slightly better.. Worked with PT today with saturation falling to 90% while on 3 L NC. States has no N/V, headache, palpitations. Vitals/I&O/Wt Last Vital Signs Temp 98.3 F 02/20/19 16:00 Pulse 63 02/20/19 16:00 Resp 18 02/20/19 16:00 BP 115/60 02/20/19 16:00 Pulse Ox 94 02/20/19 16:00 02/20/19 02/20/19 02/20/19 06:59 14:59 22:59 Intake Total 170 / 460 480 / 480 Balance 170 / 460 480 / 480 Weight last 48 hrs Weight 63.367 kg Weight 63.049 kg Physical Exam Narrative: EXAM NARRATIVE: General: No acute distress, AO x3 HEENT: PERRLA, pupils bilaterally equal and reactive Chest: b/l bronchial breath sounds, coarse crackles and ronchi, equal good air entry bilaterally CVS: S1-S2 regular, no murmurs, no tachycardia, no gallops, no rubs Abdomen: Soft, nontender, no organomegaly, bowel sounds present Neuro: No focal deficits, no facial deformity, AO x3, power 5/5 in all limbs Data Micro: Micro: Microbiology 02/20/19 09:35 MRSA Culture - Fin al Nose 02/18/19 20:57 Urine Culture - Pr eliminary Urine,Clean Catch Gram Negative R ods 02/18/19 18:21 Blood Culture - Pr eliminary Blood NEGATIVE TO ROBERT E 02/18/19 18:07 Blood Culture - Pr eliminary Blood NEGATIVE TO ROBERT E A&P Assessment and plan (1) Acute respiratory failure with hypoxia: Status: Acute Code(s): J96.01 - Acute respiratory failure with hypoxia (2) Community acquired pneumonia: Clinical diagnosis. Could be viral or bacterial, but with immunocompromise from Rituxan, will cover empirically with antibiotics. Pulmonary edema seems a less likely explanation with purulent sputum, low grade fever and such. Currently requiring oxygen therapy which she is not usually on. Status: Acute Qualifiers: Laterality: right Lung location: unspecified part of lung Qualified Code(s): J18.9 - Pneumonia, unspecified organism Code(s): J18.9 - Pneumonia, unspecified organism (3) Immunosuppression: Status: Acute Code(s): D89.9 - Disorder involving the immune mechanism, unspecified (4) ESRD (end stage renal disease) on dialysis: MWF Status: Acute Code(s): N18.6 - End stage renal disease; Z99.2 - Dependence on renal dialysis (5) Rheumatoid arthritis: Chronically on Rituxan, last dose 02/01 Status: Acute Qualifiers: Rheumatoid arthritis location: multiple sites Rheumatoid factor presence: with rheumatoid factor Qualified Code(s): M05.79 - Rheumatoid arthritis with rheumatoid factor of multiple sites without organ or systems involvement Code(s): M06.9 - Rheumatoid arthritis, unspecified (6) Anemia in chronic kidney disease: Status: Acute Code(s): N18.9 - Chronic kidney disease, unspecified; D63.1 - Anemia in chronic kidney disease Additional A&P Information Additional A&P Information: Acute hypoxic respiratory failure: CAP vs rheumatoid lung: Immunosuppresed due to recent Rituxan use for RA. ANC stable C/w Zosyn and vanc. Both renally dosed. Day 2 of treatment. Vanc trough in AM prior to dialysis. Will get additional dose after dialysis tomorrow f/u Cx an de-escalate accordingly. Procal borderline, MRSA, flu negative. O2 supplementation keeping SPO2 more than 92% budesonide BID, make Duoneb Q6h scheduled, Albuterol as needed No steroids given immunosuppresed status Home O2 raulito prior to d/c. Will check ESR to r/o rheumatoid lung as CT chest not s/o infiltrate on prelim read but has possibly developing infiltrate in right middle and basal lobe. HTN: BP low today in AM as pt got amlo BID yesterday. Will change amlo to QD. C/w home dose of labetalol. Clonidine prn Will monitor. ESRD: C/w home meds Will consult nephrology for scheduled dialysis on MWF. Microscopic colitis: C/w home dose of Entrocort. Anemia: AOCD from CKD. Check iron panel. Most likely will need oral iron supplementation will give procrit once hb less than 8. FC Heparin for DVT Ppx Renal Dialysis diet Attestations Medical Necessity Statement*: need continued hospitalization for management hypoxic resp pfailure. Time Spent in Patient Care: Greater than 35 minutes Coding Level of Care Code Acute Registered Nurse First Assistant for Garrettg Fwd Diagnoses Acute respiratory failure with hypoxia J96.01 Community acquired pneumonia J18.9 Laterality: right Lung location: unspecified part of lung Immunosuppression D89.9 ESRD (end stage renal disease) on dialysis N18.6; Z99.2 Rheumatoid arthritis M05.79 Rheumatoid arthritis location: multiple sites Rheumatoid factor presence: with rheumatoid factor Anemia in chronic kidney disease N18.9; D63.1
[2019-02-20] MEDS: HYDROcodone-acetaminophen 10-325 mg Tablet 1 TAB PO (20:46)
[2019-02-20] MEDS: diazePAM 5 mg Tablet PO (20:46)
[2019-02-21] VITALS (12 sets, daily range): BP systolic 157–192; BP diastolic 63–83; PULSE 61–69; RESP 18–32; TEMP 36.4–36.9; O2SAT 92–96
[2019-02-21] MEDS: ipratropium-albuterol 3 mL Neb INHALATION ×5 (00:10→19:27)
[2019-02-21 05:14] LABS: Basophils % 0.5 %; Eosinophils # 0.2 10^3/uL (0.0-0.8); Eosinophils % 3.2 %; Hematocrit 28.6 % (37.0-47.0); Lymphocytes # 1.3 10^3/uL (0.8-4.8); Lymphocytes % 23.5 %; Mean Corpuscular HGB Conc 31.5 g/dL (30.0-36.0); Mean Corpuscular Hemoglobin 30.9 pg (28.0-34.0); Mean Corpuscular Volume 98.3 fL (81-99); Mean Platelet Volume 11.3 fL (7.4-10.4); Monocytes # 0.6 10^3/uL (0.2-0.9); Monocytes % 10.9 %; Neutrophils # 3.5 10^3/uL (1.8-7.7); Neutrophils % 61.7 %; Nucleated Red Blood Cells % 0 %; Platelet Count 162 10^3/cmm (130-400); Red Blood Count 2.91 10^6/uL (4.1-5.3); Red Cell Distribution Width 14.4 % (12.1-15.1); White Blood Count 5.7 10^3/uL (4.0-10.0)
[2019-02-21 05:44] LABS: Alanine Aminotransferase 19 U/L (0-33); Albumin Level 3.7 g/dL (3.5-5.2); Alkaline Phosphatase 101 IU/L (35-105); Anion Gap 24.4 (5-19); Aspartate Amino Transferase 26 U/L (0-32); Calcium 9.8 mg/Dl (8.8-10.2); Carbon Dioxide 25 mmol/L (22-29); Chloride 89 mmol/L (98-107); Globulin 2.9 g/dL (1.3-4.6); Glomerular Filtration Rate 4.5 mL/min (90-130); Glucose 102 mg/dL (74-106); Iron 62 ug/dL (37-145); Percent Saturation 40.2 % (20-50); Potassium 4.4 mmol/L (3.5-5.1); Sodium 134 mmol/L (136-145); Total Bilirubin 0.2 mg/dL (0.15-1.2); Total Iron Binding Capacity 154 mg/dL; Total Protein 6.6 g/dL (6.6-8.7); Unsaturated Iron Binding 92 ug/dL (112-347); Vancomycin Trough 16.1 ug/mL (10-15)
[2019-02-21 05:51] LABS: Blood Urea Nitrogen 92 mg/dL (8-23)
[2019-02-21 06:03] LABS: Erythrocyte Sedimentation Rate 104 mm/hr (0-15)
[2019-02-21] MEDS: vancomycin 500 MG in sodium chloride 0.9% (plus) 100 ML 200 MG IV (06:03)
[2019-02-21] MEDS: heparin 5,000 unit/mL INJ 1 mL 5000 UNIT SUBCUT ×2 (06:04→17:29)
--- NOTE | 2019-02-21 07:26 | P.PN_ITS ---
Subjective Subjective: Interval history: eating, weak, lethargic, sob. Medications: Reviewed: Yes Vitals/I&O/Wt Last Vital Signs Temp 98.3 F 02/21/19 04:00 Pulse 66 02/21/19 04:00 Resp 20 H 02/21/19 04:00 BP 157/63 02/21/19 04:00 Pulse Ox 96 02/21/19 04:00 02/20/19 02/21/19 02/21/19 22:59 06:59 14:59 Intake Total 50 / 530 50 / 580 Output Total 200 / 200 Balance 50 / 530 -150 / 380 Weight last 48 hrs Weight 65.499 kg Weight 63.367 kg Physical Exam Narrative: EXAM NARRATIVE: in bed, comfortable Const: COMMON NORMALS: oriented x3 HENMT: COMMON NORMALS: normocephalic HEAD & SCALP: normocephalic Neck/C-Spine: COMMON NORMALS: no JVD Chest: COMMONS NORMALS: inspection of chest normal Resp: EFFORT & INSPECTION: Yes able to speak in complete sentences AUSCULTATION: rales and rhonchi Cardio: COMMON NORMALS: no JVD, regular rate, S1 normal heart sound and S2 normal heart sound RATE: regular rate HEART SOUNDS: S1 normal, S2 normal and murmur (no murmur) GI: COMMON NORMALS: normal to inspection, nondistended, normoactive bowel sounds and soft to palpation AUSCULTATION: Yes normoactive bowel sounds PALPATION: Yes soft PERCUSSION: normal to percussion Extremity: GENERAL: Yes normal exam except as noted OTHER: rue avf w/ thrill and bruit Neuro: COMMON NORMALS: oriented x3 Data Micro: Micro: Microbiology 02/20/19 09:35 MRSA Culture - Fin al Nose 02/18/19 20:57 Urine Culture - Pr eliminary Urine,Clean Catch Gram Negative R ods A&P Assessment and plan (1) ESRD (end stage renal disease) on dialysis: 1. esrd- hd now 2. pna- renal dose abx 3. anemia management 4. bone- mineral-metabolism of ESRD- check phos and pth Status: Acute Code(s): N18.6 - End stage renal disease; Z99.2 - Dependence on renal dialysis Attestations Medical Necessity Statement*: per hospitalist- abx for pna. hd for ESRD Time Spent in Patient Care: 16 - 35 minutes (>than 50% of time spent in counselling and/or direct pt care on unit) . Coding Level of Care Code Acute Brush Filler Hand for Garrettg Fwd Diagnoses ESRD (end stage renal disease) on dialysis N18.6; Z99.2
[2019-02-21] MEDS: diazePAM 5 mg Tablet PO (08:24)
--- NOTE | 2019-02-21 12:34 | DCPLANNER ---
*IMM* Patient received Important message from [employer]. Patient was givemn a copy after they signed the original. original is placed in the chart.
[2019-02-21] MEDS: sevelamer 800 mg Tablet PO ×2 (12:50→17:29)
[2019-02-21] MEDS: HYDROcodone-acetaminophen 10-325 mg Tablet 1 TAB PO (12:50)
--- NOTE | 2019-02-21 15:33 | PM.PN ---
Subjective Subjective: Interval history: No acute events. Seen patient today postdialysis. Patient complains of feeling weak. States she feels weak everything that time after the dialysis. Denies of having any nausea, vomiting, headache, palpitations. Continues to cough during evaluation. Is bringing up phlegm. Medications: Reviewed: Yes Vitals/I&O/Wt Last Vital Signs Temp 98.3 F 02/21/19 04:00 Pulse 69 02/21/19 12:03 Resp 18 02/21/19 12:03 BP 157/63 02/21/19 04:00 Pulse Ox 96 02/21/19 04:00 02/21/19 02/21/19 02/21/19 06:59 14:59 22:59 Intake Total 50 / 580 120 / 120 Output Total 200 / 200 Balance -150 / 380 120 / 120 Weight last 48 hrs Weight 65.499 kg Weight 63.367 kg Physical Exam Narrative: EXAM NARRATIVE: General: No acute distress, AO x3 HEENT: PERRLA, pupils bilaterally equal and reactive Chest: b/l bronchial breath sounds, coarse crackles and ronchi, equal good air entry bilaterally CVS: S1-S2 regular, no murmurs, no tachycardia, no gallops, no rubs Abdomen: Soft, nontender, no organomegaly, bowel sounds present Neuro: No focal deficits, no facial deformity, AO x3, power 5/5 in all limbs Data Micro: Micro: Microbiology 02/18/19 20:57 Urine Culture - Pr eliminary Urine,Clean Catch Escherichia col i 02/20/19 09:35 MRSA Culture - Fin al Nose A&P Assessment and plan (1) Acute respiratory failure with hypoxia: Status: Acute Code(s): J96.01 - Acute respiratory failure with hypoxia (2) Community acquired pneumonia: Clinical diagnosis. Could be viral or bacterial, but with immunocompromise from Rituxan, will cover empirically with antibiotics. Pulmonary edema seems a less likely explanation with purulent sputum, low grade fever and such. Currently requiring oxygen therapy which she is not usually on. Status: Acute Qualifiers: Laterality: right Lung location: unspecified part of lung Qualified Code(s): J18.9 - Pneumonia, unspecified organism Code(s): J18.9 - Pneumonia, unspecified organism (3) Immunosuppression: Status: Acute Code(s): D89.9 - Disorder involving the immune mechanism, unspecified (4) ESRD (end stage renal disease) on dialysis: MWF Status: Acute Code(s): N18.6 - End stage renal disease; Z99.2 - Dependence on renal dialysis (5) Rheumatoid arthritis: Chronically on Rituxan, last dose 02/01 Status: Acute Qualifiers: Rheumatoid arthritis location: multiple sites Rheumatoid factor presence: with rheumatoid factor Qualified Code(s): M05.79 - Rheumatoid arthritis with rheumatoid factor of multiple sites without organ or systems involvement Code(s): M06.9 - Rheumatoid arthritis, unspecified (6) Anemia in chronic kidney disease: Status: Acute Code(s): N18.9 - Chronic kidney disease, unspecified; D63.1 - Anemia in chronic kidney disease Additional A&P Information Additional A&P Information: Acute hypoxic respiratory failure: CAP vs rheumatoid lung: Immunocompromised state Immunosuppresed due to recent Rituxan use for RA. ANC stable C/w Zosyn and vanc. Both renally dosed. Day 3 of treatment.f/u Cx an de-escalate accordingly. Vanco trough sufficient. We will give an additional dose of vancomycin postdialysis. O2 supplementation keeping SPO2 more than 92% budesonide BID, make Duoneb Q6h scheduled, Albuterol as needed No steroids given immunosuppresed status Procal borderline, MRSA, flu negative. ESR elevated. Rheumatoid lung or atypical pneumonia versus pneumonia from nocardiosis cannot be ruled out given the immunological compromise status. Patient is on day 3 of antibiotics and is clinically not improving. Patient remains hemodynamically stable but oxygen requirements have remained high. Would consult pulmonology for further recommendations and a possible bronchoscopy for BAL. Home O2 raulito prior to d/c. HTN: Blood pressures better after changing amlodipine to daily. C/w home dose of labetalol. Clonidine prn Will monitor. ESRD: C/w home meds Dialysis as per schedule. Thursday Microscopic colitis: C/w home dose of Entrocort. Anemia: AOCD from CKD. Iron panel reviewed. will give procrit once hb less than 8. FC Heparin for DVT Ppx Renal Dialysis diet Attestations Medical Necessity Statement*: Needs controlled hospitalization for management of acute hypoxic respiratory failure Time Spent in Patient Care: 16 - 35 minutes Coding Level of Care Code Acute Loss Prevention Consultant for Chin Porter Diagnoses Acute respiratory failure with hypoxia J96.01 Community acquired pneumonia J18.9 Laterality: right Lung location: unspecified part of lung Immunosuppression D89.9 ESRD (end stage renal disease) on dialysis N18.6; Z99.2 Rheumatoid arthritis M05.79 Rheumatoid arthritis location: multiple sites Rheumatoid factor presence: with rheumatoid factor Anemia in chronic kidney disease N18.9; D63.1
--- NOTE | 2019-02-21 15:39 | PC.SOCIAL ---
Pg 2 IMM Explained to pt Pg 2 IMM. Pt verbally understands & signed. Provided a copy to pt & left on pt's bedside table. Signed, dated, & timed then placed in chart.
[2019-02-21] MEDS: labetalol 200 mg Tablet 400 MG PO ×2 (15:41→20:06)
[2019-02-21 16:23] LABS: Iron 81 ug/dL (37-145); Percent Saturation 46.2 % (20-50); Total Iron Binding Capacity 175 mg/dL; Unsaturated Iron Binding 94 ug/dL (112-347)
[2019-02-21 16:48] LABS: Ferritin 1818 ng/mL (15-150)
[2019-02-21] MEDS: fluticasone nasal spray 16gm Btl 2 SPRAY NASAL (17:30)
--- NOTE | 2019-02-21 18:53 | XR_ITS ---
WS: [id number] CHEST XRAY TECHNIQUE: Portable chest. CLINICAL INFORMATION: pneumonia COMPARISON: FINDINGS: Heart: Cardiomegaly. Prominent left ventricle. Aortic calcification. Lungs: Chronic emphysematous changes with interstitial thickening. This appears chronic. Trace bilate ral pleural fluid/pleural thickening unchanged. No new infiltrates. Bones: Enchondroma right proximal humerus unchanged. XR/XR chest 1V portable [id number] IMPRESSION: 1. Cardiomegaly with prominent left ventricle. 2. Chronic emphysematous changes with interstitial thickening appears stable. No new infiltrates. 3. Trace pleural fluid/pleural thickening.
--- NOTE | 2019-02-21 18:58 | P.CONIM_ITS ---
Providers/Reason For Consult Consulting Physican/Specialty*: Pulmonology Reason for Consult*: Pneumonia in an immunocompromised patient Attending Physician: Sudhir Guerrier MD Primary Care Provider: Erwin Layne MD History of Present Illness History of Present Illness Lady Woodward is a 69 year old female with a history of rheumatoid arthritis currently on Rituxan therapy who was admitted to the hospital with cough, sputum production, shortness of breath and hypoxia. The patient was seen and examined today. She was having dinner with her at bedside. According to the patient and her , she started having cough Thursday before the last. This was not associated with any runny nose, sore throat or generalized malaise. She did complain of some fever at that time. Over the next few days her symptoms progressed to an extent that last Thursday the patient woke up coughing from sleep at 4 AM. The patient has end-stage renal disease and is on dialysis. On Thursday she went for her dialysis and was told to go an urgent care center. At the urgent care center the patient was found to have an oxygen saturation in the 80s and was subsequently sent and admitted to the hospital. The patient has a history of rheumatoid arthritis since she was in her 20s. The patient has tried multiple medications in the past. Over the past few years the patient is on and off rituximab therapy. The patient gets rituximab every 6 months. Her 6 monthly dosage is divided into 2 that are given a week apart. The last dose of rituximab therapy was on February 01. She has significant joint destruction and deformity from the rheumatoid arthritis. She also has disease in her neck. The patient is unable to move her neck freely and has significant limitation of neck movement. The second important part of her history is a history of renal failure. According to the patient she has suffered from kidney disease for a long time however there is no definite diagnosis why she had the kidney failure. The patient had a kidney biopsy done as well however was never treated based on the results of the kidney biopsy. I do not have access to the biopsy result this history was obtained from her . According to the record, the patient had focal segmental glomerulosclerosis. The patient used to suffer from iron deficiency anemia and had received multiple episodes of transfusion in the past. She used to be on peritoneal dialysis from 2012 to 2016 after that she gets dialyzed through her right upper extremity fistula. Upon presentation to the hospital the patient underwent a chest x-ray which revealed right lower lobe infiltrate. She then underwent a chest CT scan which revealed bilateral upper lobe tree-in-bud appearances with right greater than left. She was also seen to have a right lower lobe sub-lobar consolidation there was also infiltrate in the left lower lobe. The patient had been treated with broad-spectrum antibiotics that included vancomycin and Zosyn however the patient states that she has not experienced any improvement in her symptoms. She is coughing, bringing up sputum and occasionally wheezing. She has exertional shortness of breath with walking and is also getting hypoxic. She denies any fever currently. Review of Systems Narrative: General: No fevers chills night sweats .complains of weakness and fatigue Skin: No rash HEENT: No nasal congestion, rhinitis, sinusitis, sneezing, hoarseness of voice. There is no blurred vision, double vision, redness of the eye or visual loss. There is no oral ulcer, sore throat or dry mouth. Neck: There is no neck swelling, mass or swollen glands. Respiratory: Please see my HPI. Cardiovascular: No chest pain, exertional shortness of breath, no orthopnea, or proximal nocturnal dyspnea, palpitation or lower extremity edema. Gastrointestinal: No abdominal pain, nausea, vomiting, melena Musculoskeletal: Significant deformity of the fingers Neurological: Patient is awake alert and oriented x3, no paralysis, gross motor function is normal. Psychiatric: No anxiety or depression. Meds/Allergies Home Medications and Allergies Home Medications Medication Instructions Recorded Confirmed Type amlodipine 10 mg PO BID 02/18/19 02/18/19 History clonidine HCl 0.1 mg PO Q6H PRN 02/18/19 02/18/19 History diazepam 5 mg PO BID PRN 02/18/19 02/18/19 History hydrocodone-acetaminophen 1 tab PO QID PRN 02/18/19 02/18/19 History labetalol 400 mg PO TID 02/18/19 02/18/19 History budesonide [Entocort EC] 3 mg PO DAILY 02/19/19 02/19/19 History sevelamer carbonate [Renvela] 800 mg PO TID 02/19/19 02/19/19 History Allergies Allergy/AdvReac Type Severity Reaction Status Date / Time adhesive Allergy Unknown Unknown Verified 02/18/19 18:23 codeine Allergy Unknown Unknown Verified 02/18/19 18:23 levofloxacin [From Levaquin] Allergy Unknown Unknown Verified 02/18/19 18:23 propoxyphene Allergy Unknown Unknown Verified 02/18/19 18:23 Sulfa (Sulfonamide Allergy Unknown Unknown Verified 02/18/19 18:23 Antibiotics) sulfamethoxazole Allergy Unknown Unknown Verified 02/18/19 18:23 [From Bactrim] tramadol Allergy Unknown Unknown Verified 02/18/19 18:23 trimethoprim [From Bactrim] Allergy Unknown Unknown Verified 02/18/19 18:23 Current Medications Current Medications Generic Name Dose Route Start Last Admin Trade Name Freq PRN Reason Stop Dose Admin Hydrocodone Bitart/Acetaminophen 1 tab 02/19/19 04:57 02/21/19 12:50 [place] 10-325 Mg PO 1 tab QID PRN Administration Pain Albuterol/Ipratropium 3 ml 02/19/19 16:00 02/21/19 15:54 Duoneb INHALATION 3 ml Q4H.RESPIRATORY VIVI Administration Amlodipine Besylate 10 mg 02/21/19 09:00 02/21/19 09:17 Norvasc PO Not Given DAILY VIVI Budesonide 0.5 mg 02/19/19 08:00 02/21/19 07:57 Pulmicort INHALATION Not Given BID.RESPIRATORY VIVI Diazepam 5 mg 02/19/19 04:57 02/21/19 08:24 Valium PO 5 mg BID PRN Administration Anxiety Fluticasone Propionate 2 spray 02/19/19 09:00 02/21/19 17:30 Flonase NASAL 2 spray BID VIVI Administration Heparin Sodium (Beef Lung) 5,000 unit 02/19/19 05:00 02/21/19 17:29 Heparin SUBCUT 5,000 unit Q12H VIVI Administration Piperacillin Sod/Tazobactam 50 mls @ 12.5 mls/hr 02/19/19 08:00 02/21/19 08:06 Sod 3.375 gm/ Sodium Chloride IV Not Given Q12H VIVI Protocol As Directed Labetalol HCl 400 mg 02/19/19 09:00 02/21/19 15:41 Trandate PO 400 mg TID VIVI Administration Morphine Sulfate 2 mg 02/18/19 21:14 02/18/19 21:33 Morphine IVP 2 mg Q4H PRN Administration SEVERE PAIN Non-Formulary Medication 3 ml 02/20/19 09:00 02/21/19 09:17 Entocort PO Not Given DAILY VIVI Ondansetron HCl 4 mg 02/18/19 21:14 02/18/19 21:34 Zofran IVP 4 mg Q6H PRN Administration NAUSEA AND VOMITING Sevelamer Carbonate 800 mg 02/19/19 09:00 02/21/19 17:29 Renvela PO 800 mg TID VIVI Administration PFSH Acute PFSH: Statuses (acute, chronic, etc) shown below reflect problem list status as previously entered and may not be historically accurate Medical History Anemia in chronic kidney disease (Acute) ESRD (end stage renal disease) on dialysis (Acute) FSGS, collapsing, 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 Initially on PD and then transitioned to hemodialysis. Thursday. Dr Gong. History of peritoneal dialysis (Acute) Add Enterobacter followed by fungal peritonitis leading to PD catheter removal in 2012 Hypertension (Acute) Immunosuppression (Acute) Microscopic colitis (Acute) on endocort Obstructive sleep apnea (Acute) intolerant of cpap Osteoporosis (Acute) Rheumatoid arthritis (Acute) Follows with Dr Russell, on Rituxan. Seropositive. Previously failed gold, sulfasalazine, methotrexate, leflunomide, infliximab, humira, entanercept. Secondary hyperparathyroidism (of renal origin) (Acute) Surgical History History of ankle surgery (Acute) right fusion History of bilateral tubal ligation (Acute) History of cholecystectomy (Acute) History of exploratory laparotomy (Acute) For peritoneal dialysis catheter removal, also had lysis of adhesions History of left-sided carotid endarterectomy (Acute) History of orthopedic surgery (Acute) Left hand. Some wire extrusion 4th digit associated with recurrent infection. History of right hip replacement (Acute) History of total bilateral knee replacement (Acute) Family History Father Rheumatoid arthritis Social History Smoking and tobacco status: never smoked Alcohol intake: never Vitals/I&O/Wt Last Vital Signs Temp 98.4 F 02/21/19 16:00 Pulse 68 02/21/19 16:02 Resp 20 H 02/21/19 16:02 BP 192/83 02/21/19 16:00 Pulse Ox 92 02/21/19 16:02 02/21/19 02/21/19 02/21/19 06:59 14:59 22:59 Intake Total 50 / 580 120 / 120 Output Total 200 / 200 Balance -150 / 380 120 / 120 Weight last 48 hrs Weight 144 lb 6.4 oz Weight 139 lb 11.2 oz Physical Exam Narrative: EXAM NARRATIVE: General: Patient is awake alert and oriented, in no significant distress. Neck: No JVD, no cervical or supraclavicular lymphadenopathy. Respiratory: Inspection: No visible deformity of the chest wall, a port in the left chest Palpation: Trachea is mildly deviated to the right, bilateral symmetric expansion but reduced Percussion: Bilateral tympanic percussion note both anterior and posteriorly Auscultation: Bilateral coarse crackles at the bases, diffuse wheezing and rhonchi in both anterior posterior lungs Cardiovascular: Regular rate and rhythm, S1-S2 present, no murmur, no right ventricular heave, no peripheral edema. Abdomen: Soft, nontender, nondistended, positive bowel sound Musculoskeletal: Significant joint deformity from the rheumatoid arthritis, gait was not assessed Skin: No rash Neuro: Mental status is normal, no gross cranial nerve deficit, normal motor and coordination. Data Micro: Micro: Microbiology 02/18/19 20:57 Urine Culture - Pr eliminary Urine,Clean Catch Escherichia col i 02/20/19 09:35 MRSA Culture - Fin al Nose Other Data: Other data: I have reviewed the patient's labs since admission including the radiologic data. As described in the HPI, there is evidence of right lower lobe consolidation on the initial admission chest CT as well as tree-in-bud appearances involving right and left upper lobes. The flu antigen tests were negative. Urine culture grew E. coli. A&P Assessment and plan (1) Acute respiratory failure with hypoxia: Acute hypoxic respiratory failure secondary to the pneumonia. There could also be a component of volume overload secondary to the ESRD. The patient has a diagnosis of community-acquired pneumonia however she does have risk factors for infection by atypical organisms. The differential diagnosis for pneumonia is broad. She has a nasal MRSA PCR negative which reduces her chance of having a MRSA pneumonia significantly. A gram-negative infection would not be unusual in the setting of profound immunosuppression with rituximab. There is a significant chance that the patient has diminished immunoglobulin level and secondary immunodeficiency secondary to the rituximab. Infection with atypical organisms like mycoplasma, chlamydia, Legionella or Coxiella can also be responsible, however, the typical description of walking pneumonia on radiology is not present. The patient does not have any evidence of hemolytic anemia or bullous myringitis. Infection with nocardia, actinomyces is still possible however the patient gives history of acute change of events which makes me think against it. Viral pneumonia is a certain possibility. The patient has negative flu however the patient has profound bronchospasm and bronchiolitis causing diffuse wheezing and rhonchi. This would also be consistent with the finding of tree-in-bud appearance on the CT scan which is tax compliance representative of bronchiolitis. This is very consistent with a viral infection other than flu. Rhino/enterovirus is known to cause profound airway hypersensitivity, bronchiolitis causing significant VQ mismatch and hypoxia. The patient is currently on DuoNeb and Pulmicort nebs. The patient does not want to try prednisone as it gives her significant generalized swelling. The patient is broadly covered with vancomycin and Zosyn currently. Given the patient's profound immunocompromise status, I am going to perform a bronchoscopy tomorrow and bronchoalveolar lavage. The patient and her is in agreement with the plan. I am going to obtain a chest x-ray. The CT scan finding of lung consolidation is not significant enough to cause this profound hypoxia however if VQ mismatch would certainly do that. Rheumatoid arthritis might affect the lung in multiple ways involving the airway, pulmonary vasculature, lung parenchyma and pleura. There is no evidence of rheumatoid nodule, there is no bronchiectasis, no evidence of obliterative bronchiolitis, serositis or pleural effusion, pulmonary fibrosis or evidence of pulmonary hypertension. However, secondary organizing pneumonia is a possibility. This could present as community-acquired pneumonia however unresponsive to antibiotic therapy. However, the finding of diffuse wheezing and rhonchi is unusual with organizing pneumonia. There is no evidence of diffuse alveolar hemorrhage. Status: Acute Code(s): J96.01 - Acute respiratory failure with hypoxia (2) Immunosuppression: The patient has significant immunosuppression from rituximab, rheumatoid arthritis as well as being on dialysis. 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
[2019-02-21] MEDS: budesonide 0.5 mg/2 mL Neb INHALATION (19:27)
[2019-02-21] MEDS: piperacillin-tazobactam 3.375 GM in sodium chloride 0.9% (plus) 50 ML IV (20:07)
[2019-02-22] VITALS (27 sets, daily range): BP systolic 149–212; BP diastolic 69–99; PULSE 56–78; RESP 16–28; TEMP 36.4–36.8; O2SAT 92–96
[2019-02-22 04:10] LABS: Alanine Aminotransferase 18 U/L (0-33); Albumin Level 3.9 g/dL (3.5-5.2); Alkaline Phosphatase 97 IU/L (35-105); Anion Gap 19.3 (5-19); Aspartate Amino Transferase 25 U/L (0-32); Blood Urea Nitrogen 41 mg/dL (8-23); Calcium 9.6 mg/Dl (8.8-10.2); Carbon Dioxide 27 mmol/L (22-29); Chloride 94 mmol/L (98-107); Globulin 2.6 g/dL (1.3-4.6); Glomerular Filtration Rate 8.6 mL/min (90-130); Glucose 99 mg/dL (74-106); Potassium 4.3 mmol/L (3.5-5.1); Sodium 136 mmol/L (136-145); Total Bilirubin 0.3 mg/dL (0.15-1.2); Total Protein 6.5 g/dL (6.6-8.7)
[2019-02-22 04:23] LABS: Basophils % 0.6 %; Eosinophils # 0.2 10^3/uL (0.0-0.8); Hematocrit 30.6 % (37.0-47.0); Hemoglobin 9.5 g/dL (11.5-15.3); Lymphocytes # 1.4 10^3/uL (0.8-4.8); Lymphocytes % 40.1 %; Mean Corpuscular Hemoglobin 31.8 pg (28.0-34.0); Mean Corpuscular Volume 102.3 fL (81-99); Mean Platelet Volume 11.2 fL (7.4-10.4); Monocytes # 0.6 10^3/uL (0.2-0.9); Monocytes % 18.1 %; Neutrophils # 1.2 10^3/uL (1.8-7.7); Neutrophils % 35.9 %; Nucleated Red Blood Cells % 0 %; Platelet Count 158 10^3/cmm (130-400); Red Blood Count 2.99 10^6/uL (4.1-5.3); Red Cell Distribution Width 14.6 % (12.1-15.1); White Blood Count 3.4 10^3/uL (4.0-10.0)
[2019-02-22] MEDS: ipratropium-albuterol 3 mL Neb INHALATION ×5 (04:39→20:46)
[2019-02-22 06:28] LABS: Glucose Point of Care 82 mg/dL (70-110)
--- NOTE | 2019-02-22 07:07 | P.PN_ITS ---
Subjective Subjective: Interval history: seen and examined. still sob. Vitals/I&O/Wt Last Vital Signs Temp 98.1 F 02/22/19 04:00 Pulse 69 02/22/19 04:46 Resp 16 02/22/19 04:40 BP 179/72 02/22/19 04:00 Pulse Ox 94 02/22/19 04:40 02/21/19 02/22/19 02/22/19 22:59 06:59 14:59 Intake Total 30 / 150 Balance 30 / 150 Weight last 48 hrs Weight 59.783 kg Weight 65.499 kg Physical Exam Narrative: EXAM NARRATIVE: vs noted. comfortable in bed, using nc 02 heent- nc/at, eomi neck- supple, no jvp lungs right crackles heart reg, +LIN abd soft, nt, shahid +BS ext no edema RUE AVF w/ good thrill and bruit neuro- a,a, o x 3 skin normal mood normal Data Micro: Micro: Microbiology 02/18/19 20:57 Urine Culture - Pr eliminary Urine,Clean Catch Escherichia col i A&P Additional A&P Information 1. esrd- hd in am and challenge fluid removal 2. htn 3. pna- renal dose abx 4. htn 5. 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
[2019-02-22] MEDS: budesonide 0.5 mg/2 mL Neb INHALATION ×2 (07:38→20:46)
[2019-02-22] MEDS: piperacillin-tazobactam 3.375 GM in sodium chloride 0.9% (plus) 50 ML IV ×2 (08:25→20:39)
--- NOTE | 2019-02-22 09:00 | ANES.PREANES ---
Pre-Anesthetic Assessment Pre-Anesthetic Assessment: Height/Weight: Height 1.5 m Weight 59.783 kg Temp Pulse Resp BP Pulse Ox 98.0 F 64 16 210/82 95 02/22/19 08:00 02/22/19 08:00 02/22/19 08:00 02/22/19 08:00 02/22/19 08:00 Preop Diagnosis: pneumonia/hypoxemia Proposed Procedure: Operation Date: 02/22/19 08:50 Proposed Procedures p Bronchoscopy(Not Applicable) - Biplab MD Polina Was Beta Jayne taken within 24 hours: Yes Last intake: Intake Last Liquid Date 02/21/19 Last Liquid Time 23:00 Last Solid Date 02/21/19 Last Solid Time 20:00 Exam: Pre-Anes Outpt Exam: alert, oriented x 3 and regular rate & rhythm Additional Exam Findings (including area of procedure): coarse bilaterally Airway: Submandibular: WNL Cervical ROM: WNL MP: 2 Pulmonary: Pulmonary: Cough, BROOKE, Sleep apnea and SOB CV/HEM: CV/HEM: Anemia and HTN : : Chronic renal failure Comments: dialysis x 6 years, last 02/21 Musc/skel: Musc/skel: Lower Back Pain and RA Anesthetic Plan: ASA status: III Anesthesia: MAC Meds/Allergies Current Medications: Current Medications Generic Name Dose Route Start Last Admin Trade Name Freq PRN Reason Stop Dose Admin Hydrocodone Bitart /Acetaminophen 1 tab 02/19/19 04:57 02/21/19 12:50 [place] 10-325 Mg PO 1 tab QID PRN Administration Pain Albuterol/Ipratrop ium 3 ml 02/19/19 16:00 02/22/19 07:38 Duoneb INHALATION 3 ml Q4H.RESPIRATORY S CH Administration Amlodipine Besylat e 10 mg 02/21/19 09:00 02/21/19 09:17 Norvasc PO Not Given DAILY VIVI Budesonide 0.5 mg 02/19/19 08:00 02/22/19 07:38 Pulmicort INHALATION 0.5 mg BID.RESPIRATORY S CH Administration Diazepam 5 mg 02/19/19 04:57 02/21/19 08:24 Valium PO 5 mg BID PRN Administration Anxiety Fluticasone Propio evert 2 spray 02/19/19 09:00 02/21/19 17:30 Flonase NASAL 2 spray BID VIVI Administration Heparin Sodium (Be ef Lung) 5,000 unit 02/19/19 05:00 02/22/19 05:07 Heparin SUBCUT Not Given Q12H VIVI Piperacillin Sod/T azobactam 50 mls @ 12.5 mls /hr 02/19/19 08:00 02/22/19 08:25 Sod 3.375 gm/ So dium Chloride IV 12.5 mls/hr Q12H VIVI Administration Protocol As Directed Labetalol HCl 400 mg 02/19/19 09:00 02/21/19 20:06 Trandate PO 400 mg TID VIVI Administration Morphine Sulfate 2 mg 02/18/19 21:14 02/18/19 21:33 Morphine IVP 2 mg Q4H PRN Administration SEVERE PAIN Non-Formulary Medi cation 3 ml 02/20/19 09:00 02/22/19 07:31 Entocort PO Not Given DAILY VIVI Ondansetron HCl 4 mg 02/18/19 21:14 02/18/19 21:34 Zofran IVP 4 mg Q6H PRN Administration NAUSEA AND VOMITI NG Sevelamer Carbonat e 800 mg 02/19/19 09:00 02/22/19 07:31 Renvela PO Not Given TID VIVI PFSH Anesthesia PFSH: Medical History Anemia in chronic kidney disease (Acute) ESRD (end stage renal disease) on dialysis (Acute) FSGS, collapsing, 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 Initially on PD and then transitioned to hemodialysis. Thursday. Dr Gong. History of peritoneal dialysis (Acute) Add Enterobacter followed by fungal peritonitis leading to PD catheter removal in 2012 Hypertension (Acute) Immunosuppression (Acute) Microscopic colitis (Acute) on endocort Obstructive sleep apnea (Acute) intolerant of cpap Osteoporosis (Acute) Rheumatoid arthritis (Acute) Follows with Dr Russell, on Rituxan. Seropositive. Previously failed gold, sulfasalazine, methotrexate, leflunomide, infliximab, humira, entanercept. Secondary hyperparathyroidism (of renal origin) (Acute) Surgical History History of ankle surgery (Acute) right fusion History of bilateral tubal ligation (Acute) History of cholecystectomy (Acute) History of exploratory laparotomy (Acute) For peritoneal dialysis catheter removal, also had lysis of adhesions History of left-sided carotid endarterectomy (Acute) History of orthopedic surgery (Acute) Left hand. Some wire extrusion 4th digit associated with recurrent infection. History of right hip replacement (Acute) History of total bilateral knee replacement (Acute) Family History Father Rheumatoid arthritis Social History Smoking and tobacco status: never smoked Alcohol intake: never Data Anesthesia CBC & Chem 7: 02/22/19 03:28 02/22/19 03:28 Other Labs: Laboratory Results - last 48 hr 02/21/19 02/21/19 02/21/19 04:25 04:25 04:25 WBC 5.7 RBC 2.91 L Hgb 9.0 L Hct 28.6 L MCV 98.3 D MCH 30.9 MCHC 31.5 RDW 14.4 Plt Count 162 MPV 11.3 H Neut % (Auto) 61.7 Lymph % (Auto) 23.5 [place] % (Auto) 10.9 Eos % (Auto) 3.2 Baso % (Auto) 0.5 Neut # (Auto) 3.5 Lymph # (Auto) 1.3 [place] # (Auto) 0.6 Eos # (Auto) 0.2 Baso # (Auto) 0.0 Nucleated RBC % (auto) 0 Nucleated RBCs # 0.0 ESR 104 H Sodium 134 L Potassium 4.4 Chloride 89 L Carbon Dioxide 25 Anion Gap 24.4 H BUN 92 H* Creatinine 8.8 H* GFR Calculation 4.5 L Glucose 102 POC Glucose Calcium 9.8 Iron 62 TIBC 154 % Saturation 40.2 Unsat Iron Binding 92 L Ferritin Total Bilirubin 0.2 AST 26 ALT 19 Alkaline Phosphatase 101 Total Protein 6.6 Albumin 3.7 Globulin 2.9 Vancomycin Trough 16.1 H 02/21/19 02/22/19 02/22/19 15:51 03:28 03:28 WBC 3.4 L RBC 2.99 L Hgb 9.5 L Hct 30.6 L MCV 102.3 H MCH 31.8 MCHC 31.0 RDW 14.6 Plt Count 158 MPV 11.2 H Neut % (Auto) 35.9 Lymph % (Auto) 40.1 [place] % (Auto) 18.1 Eos % (Auto) 5.0 Baso % (Auto) 0.6 Neut # (Auto) 1.2 L Lymph # (Auto) 1.4 [place] # (Auto) 0.6 Eos # (Auto) 0.2 Baso # (Auto) 0.0 Nucleated RBC % (auto) 0 Nucleated RBCs # 0.0 ESR Sodium 136 Potassium 4.3 Chloride 94 L Carbon Dioxide 27 Anion Gap 19.3 H BUN 41 H Creatinine 5.0 H GFR Calculation 8.6 L Glucose 99 POC Glucose Calcium 9.6 Iron 81 TIBC 175 % Saturation 46.2 Unsat Iron Binding 94 L Ferritin 1818 H Total Bilirubin 0.3 AST 25 ALT 18 Alkaline Phosphatase 97 Total Protein 6.5 L Albumin 3.9 Globulin 2.6 Vancomycin Trough 02/22/19 06:16 WBC RBC Hgb Hct MCV MCH MCHC RDW Plt Count MPV Neut % (Auto) Lymph % (Auto) [place] % (Auto) Eos % (Auto) Baso % (Auto) Neut # (Auto) Lymph # (Auto) [place] # (Auto) Eos # (Auto) Baso # (Auto) Nucleated RBC % (auto) Nucleated RBCs # ESR Sodium Potassium Chloride Carbon Dioxide Anion Gap BUN Creatinine GFR Calculation Glucose POC Glucose 82 Calcium Iron TIBC % Saturation Unsat Iron Binding Ferritin Total Bilirubin AST ALT Alkaline Phosphatase Total Protein Albumin Globulin Vancomycin Trough Micro: Microbiology 02/18/19 20:57 Urine Culture - Preliminary Urine,Clean Catch Escherichia coli Strep species, gamma-hemolytic Cardiac Studies: No Data to Display
[2019-02-22] MEDS: lidocaine 1% INJ 20 mL XX (10:10)
--- NOTE | 2019-02-22 10:31 | PM.OP ---
Operative Report Date of procedure: 02/22/19 Preop Diagnosis: Community-acquired pneumonia in immunocompromised patient Post-op diagnosis: same Procedure: Name of the procedure: Bronchoscopy with bronchoalveolar lavage and airway inspection. Indication: Acute hypoxic respiratory failure in the setting of pneumonia in an immunocompromised patient Medication: The patient required general anesthesia after having laryngospasm during monitored anesthesia care. Description of the procedure: The patient was brought to the OR and monitored anesthesia care was started. A timeout was performed and the bronchoscope was introduced through her mouth. The vocal cords were closed secondary to laryngospasm and the decision was made to start the patient on general anesthesia for the procedure. The patient was intubated. Her saturation was 100% and she is hemodynamically stable. The bronchoscope was then introduced through the ET tube. The anatoliy and right and left mainstem bronchi were anesthetized with 1% lidocaine, 3 mL. The anatoliy was sharp. Diffuse airway erythema was noted in the trachea and the anatoliy as well as right and left mainstem bronchi. There was significant mucus noted as well. The bronchoscope was then systematically advanced to the left and the right lung. There was diffuse erythema and mucosal swelling of the airway throughout both lungs. There was significant mucus production on both lungs. A bronchoalveolar lavage was performed the medial segment of the right middle lobe. 60 mL of normal saline was introduced, 25 mL of mucoid return. There was no complication from the procedure. Specimen: The bronchoalveolar fluid was sent for cell count and differential, Gram stain and culture, AFB stain and culture, fungal stain and culture, nocardia and actinomyces culture, Legionella antigen and Legionella culture, viral PCR for influenza, rhino enterovirus, coronavirus, RSV. Complications: No immediate complication was noted. Postprocedure chest x-ray was pending.
[2019-02-22] MEDS: cloNIDine 0.1 mg Tablet PO ×2 (11:23→20:37)
[2019-02-22] MEDS: azithromycin 250 mg Tablet 500 MG PO (11:24)
[2019-02-22 13:31] LABS: Glucose Point of Care 88 mg/dL (70-110)
--- NOTE | 2019-02-22 14:49 | PM.PACU ---
PACU note Post-Anesthesia Exam: awake and vital signs stable Disposition: back to floor
--- NOTE | 2019-02-22 16:51 | PM.PN ---
Subjective Subjective: Interval history: The patient was seen and examined in her room today. She was surrounded by her family members. The patient states that her breathing is somewhat better today. She underwent bronchoscopy this morning. The bronchoscopy revealed generalized erythema and swelling of the airways. The Gram stain came back positive for gram-positive cocci in pairs. There is no speciation yet. The patient continues to have cough with minimal sputum production. She also has intermittent episodes of wheezing. She continues to require 2 L of oxygen. Medications: Reviewed: Yes Vitals/I&O/Wt Last Vital Signs Temp 97.8 F 02/22/19 11:15 Pulse 64 02/22/19 16:26 Resp 20 H 02/22/19 16:19 BP 182/72 02/22/19 11:45 Pulse Ox 95 02/22/19 16:19 02/22/19 02/22/19 02/22/19 06:59 14:59 22:59 Intake Total 50 / 200 0 / 0 Output Total 0 / 0 Balance 50 / 200 0 / 0 Weight last 48 hrs Weight 131 lb 12.8 oz Weight 144 lb 6.4 oz Physical Exam Narrative: EXAM NARRATIVE: General: Patient is awake alert and oriented, in no significant distress. Neck: No JVD, no cervical or supraclavicular lymphadenopathy. Respiratory: Inspection: No visible deformity of the chest wall, a port in the left chest Palpation: Trachea is mildly deviated to the right, bilateral symmetric expansion but reduced Percussion: Bilateral tympanic percussion note both anterior and posteriorly Auscultation: Bilateral coarse crackles at the bases, diffuse wheezing and rhonchi in both anterior posterior lungs, better than yesterday Cardiovascular: Regular rate and rhythm, S1-S2 present, no murmur, no right ventricular heave, no peripheral edema. Abdomen: Soft, nontender, nondistended, positive bowel sound Musculoskeletal: Significant joint deformity from the rheumatoid arthritis, gait was not assessed Skin: No rash Neuro: Mental status is normal, no gross cranial nerve deficit, normal motor and coordination. Data Micro: Micro: Microbiology 02/22/19 10:16 Gram Stain - Final Lung Right Upper Lobe 02/18/19 20:57 Urine Culture - Pr eliminary Urine,Clean Catch Escherichia col i Strep species, gamma-hemolytic A&P Assessment and plan (1) Acute respiratory failure with hypoxia: Patient is slowly improving. Currently the patient is on Zosyn and I have started her on azithromycin. Her nasal MRSA PCR was negative. During bronchoscopy generalized erythema and swelling in the airway was noted. There was no pus. I have sent out the bronchoalveolar lavage from the right middle lobe for extensive microbiologic work-up. We will titrate the oxygen down and keep an oxygen level. 92 to 96%. I will continue to follow the patient. I have explained to the patient and the family that the bronchospasm might continue for a few weeks if this turns out to be a viral infection. We will continue with DuoNeb and Pulmicort nebulization. Status: Acute Code(s): J96.01 - Acute respiratory failure with hypoxia (2) Community acquired pneumonia: The patient is currently on Zosyn and azithromycin. The anti-inflammatory property of the azithromycin might also help with the bronchospasm. 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
[2019-02-22 17:27] LABS: Glucose Point of Care 90 mg/dL (70-110)
--- NOTE | 2019-02-22 18:20 | PM.PN ---
Subjective Subjective: Interval history: Patient seen in her room after undergoing bronchoscopy. She was comfortably sleeping, woke up easily to me calling her name. She reports no acute symptoms today. States breathing is pretty much as it is been since admission. No gross worsening. She remains on supplemental O2 currently at 2 L/min with O2 sat at 95%. Medications: Reviewed: Yes Vitals/I&O/Wt Last Vital Signs Temp 98.2 F 02/22/19 16:15 Pulse 64 02/22/19 16:26 Resp 20 H 02/22/19 16:19 BP 186/79 02/22/19 16:15 Pulse Ox 95 02/22/19 16:19 02/22/19 02/22/19 02/22/19 06:59 14:59 22:59 Intake Total 50 / 200 0 / 0 Output Total 0 / 0 Balance 50 / 200 0 / 0 Weight last 48 hrs Weight 59.783 kg Weight 65.499 kg Physical Exam Narrative: EXAM NARRATIVE: GEN: Awake, alert and oriented, no acute distress CVS: S1S@ N RS: Bilateral coarse wheezing anteriorly all areas. 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 Could be viral or bacterial, but with immunocompromise from Rituxan, will cover empirically with antibiotics. Pulmonary edema seems a less likely explanation with purulent sputum, low grade fever and such. Currently requiring oxygen therapy which she is not usually on. Status: Acute Qualifiers: Laterality: right Lung location: unspecified part of lung Qualified Code(s): J18.9 - Pneumonia, unspecified organism Code(s): J18.9 - Pneumonia, unspecified organism (3) Immunosuppression: Status: Acute Code(s): D89.9 - Disorder involving the immune mechanism, unspecified (4) ESRD (end stage renal disease) on dialysis: MWF Status: Acute Code(s): N18.6 - End stage renal disease; Z99.2 - Dependence on renal dialysis (5) Rheumatoid arthritis: Chronically on Rituxan, last dose 02/01 Status: Acute Qualifiers: Rheumatoid arthritis location: multiple sites Rheumatoid factor presence: with rheumatoid factor Qualified Code(s): M05.79 - Rheumatoid arthritis with rheumatoid factor of multiple sites without organ or systems involvement Code(s): M06.9 - Rheumatoid arthritis, unspecified (6) Anemia in chronic kidney disease: Status: Acute Code(s): N18.9 - Chronic kidney disease, unspecified; D63.1 - Anemia in chronic kidney disease Additional A&P Information Acute hypoxic respiratory failure: CAP vs rheumatoid lung: Immunocompromised state Patient is status post bronchoscopy today to further assess cause. Gram stain, culture including bacterial and fungal, respiratory viral PCR, pneumocystis PCR were sent. Awaiting results. Thus far Gram stain only with gram-positive cocci in ears likely to represent Streptococcus pharyngeal pedro luis. C/w Zosyn. Can discontinue vancomycin. Azithromycin added today to cover for possibility of atypical pneumonia. O2 supplementation keeping SPO2 more than 92% budesonide BID, make Duoneb Q6h scheduled, Albuterol as needed Procal borderline, MRSA, flu negative. ESR elevated. Rheumatoid lung or atypical pneumonia Unlikely nocardiosis as patient does not have the classical risk factors including prolonged neutropenia or lymphopenia and is not profoundly immunocompromised. Less likely to be pneumocystis, however VQ mismatch., Will rule out by adding PCR to the BAL wash and also obtain peripheral markers LDH and beta D glucan. Appreciate pulmonology recommendations. Home O2 raulito prior to d/c. HTN: Blood pressures better after changing amlodipine to daily. C/w home dose of labetalol. Clonidine prn Will monitor. ESRD: C/w home meds Dialysis as per schedule. Thursday Microscopic colitis: C/w home dose of Entrocort. Anemia: AOCD from CKD. Iron panel reviewed. will give procrit once hb less than 8. FC Heparin for DVT Ppx Renal Dialysis diet Attestations Medical Necessity Statement*: Awaiting bronchoscopy results to elucidate course of chest infiltrates and hypoxia. 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
[2019-02-22] MEDS: diazePAM 5 mg Tablet PO (22:31)
[2019-02-23] VITALS (11 sets, daily range): BP systolic 129–192; BP diastolic 62–83; PULSE 57–86; RESP 16–28; TEMP 36.4–37.1; O2SAT 95–99
[2019-02-23] MEDS: ipratropium-albuterol 3 mL Neb INHALATION ×3 (01:23→21:20)
[2019-02-23 05:38] LABS: Lactate Dehydrogenase 189 U/L (135-214)
[2019-02-23] MEDS: heparin 5,000 unit/mL INJ 1 mL 5000 UNIT SUBCUT ×2 (05:45→17:20)
--- NOTE | 2019-02-23 07:01 | PM.PN ---
Subjective Subjective: Interval history: still sob and coughing. s/p bronchoscopy yesterday. Vitals/I&O/Wt Last Vital Signs Temp 97.5 F L 02/23/19 04:00 Pulse 86 02/23/19 04:47 Resp 18 02/23/19 04:47 BP 192/62 02/23/19 04:00 Pulse Ox 95 02/23/19 04:47 02/22/19 02/23/19 02/23/19 22:59 06:59 14:59 Intake Total 600 / 680 Balance 600 / 680 Weight last 48 hrs Weight 66.179 kg Weight 59.783 kg Physical Exam Narrative: EXAM NARRATIVE: comfrotable in bed, NARD vs noted- bp elevated heent- nc/at neck no jvp lungs- wheezing and ronchi b/l heart reg, no rub abd soft, nt, nd ext no edema 1rue 1avf w/ thrill and bruit neuro- a,a, o x 3 Data Micro: Micro: Microbiology 02/22/19 10:16 Gram Stain - Final Lung Right Upper Lobe 02/18/19 20:57 Urine Culture - Pr eliminary Urine,Clean Catch Escherichia col i Strep species, gamma-hemolytic A&P Additional A&P Information 1/ pna- abx per pulm/ medicine- renal dose 2. anemia- epo per protocol no iron w/ high ferritin 3. ESRD- hd now- challenge fluid removal 4. htn- after fluid removal w/ hd, may inc meds Attestations Medical Necessity Statement*: pna, htn, esrd. 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
[2019-02-23] MEDS: diazePAM 5 mg Tablet PO ×2 (08:13→17:20)
--- NOTE | 2019-02-23 09:10 | PC.SOCIAL ---
IMM Updated Page 2 of IMM updated and given to patient. Initialed, dated, and timed and placed back in chart.
[2019-02-23] MEDS: HYDROcodone-acetaminophen 10-325 mg Tablet 1 TAB PO (09:11)
--- NOTE | 2019-02-23 09:31 | PM.PN ---
Subjective Subjective: Interval history: Seen at dialysis today. No acute overnight events. Culture from BAL thus far with gram-positive cocci in pairs likely direct represent pharyngeal pedro luis. 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 Could be viral or bacterial, but with immunocompromise from Rituxan, will cover empirically with antibiotics. Pulmonary edema seems a less likely explanation with purulent sputum, low grade fever and such. Currently requiring oxygen therapy which she is not usually on. Status: Acute Qualifiers: Laterality: right Lung location: unspecified part of lung Qualified Code(s): J18.9 - Pneumonia, unspecified organism Code(s): J18.9 - Pneumonia, unspecified organism (3) Immunosuppression: Status: Acute Code(s): D89.9 - Disorder involving the immune mechanism, unspecified (4) ESRD (end stage renal disease) on dialysis: MWF Status: Acute Code(s): N18.6 - End stage renal disease; Z99.2 - Dependence on renal dialysis (5) Rheumatoid arthritis: Chronically on Rituxan, last dose 02/01 Status: Acute Qualifiers: Rheumatoid arthritis location: multiple sites Rheumatoid factor presence: with rheumatoid factor Qualified Code(s): M05.79 - Rheumatoid arthritis with rheumatoid factor of multiple sites without organ or systems involvement Code(s): M06.9 - Rheumatoid arthritis, unspecified (6) Anemia in chronic kidney disease: Status: Acute Code(s): N18.9 - Chronic kidney disease, unspecified; D63.1 - Anemia in chronic kidney disease Additional A&P Information Acute hypoxic respiratory failure: CAP vs rheumatoid lung: Immunocompromised state Patient is status post bronchoscopy to further assess cause. Gram stain, culture including bacterial and fungal, respiratory viral PCR, pneumocystis PCR were sent. Awaiting results. Thus far Gram stain only with gram-positive cocci in ears likely to represent Streptococcus pharyngeal pedro luis. C/w Zosyn. Can discontinue vancomycin. Azithromycin added today to cover for possibility of atypical pneumonia. O2 supplementation keeping SPO2 more than 92% budesonide BID, make Duoneb Q6h scheduled, Albuterol as needed Procal borderline, MRSA, flu negative. ESR elevated. Rheumatoid lung or atypical pneumonia Unlikely nocardiosis as patient does not have the classical risk factors including prolonged neutropenia or lymphopenia and is not profoundly immunocompromised. Less likely to be pneumocystis, however VQ mismatch., Will rule out by adding PCR to the BAL wash and also obtain peripheral markers LDH and beta D glucan. Appreciate pulmonology recommendations. Home O2 raulito prior to d/c. HTN: Blood pressures better after changing amlodipine to daily. C/w home dose of labetalol. Clonidine prn Will monitor. ESRD: C/w home meds Dialysis as per schedule. Thursday Microscopic colitis: C/w home dose of Entrocort. Anemia: AOCD from CKD. Iron panel reviewed. will give procrit once hb less than 8. 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
[2019-02-23] MEDS: azithromycin 250 mg Tablet 500 MG PO (13:22)
[2019-02-23] MEDS: amlodipine 10 mg Tablet PO (13:22)
[2019-02-23] MEDS: hyDRALAzine 10 mg Tablet PO ×3 (13:22→20:12)
[2019-02-23] MEDS: fluticasone nasal spray 16gm Btl 2 SPRAY NASAL ×2 (13:23→17:21)
[2019-02-23 15:11] LABS: Apprearance, Bronch Wash Hazy (CLEAR); Total Cells Counted Bronch 300
[2019-02-23 15:12] LABS: Color, Bronc Wash Colorless
[2019-02-23 15:15] LABS: PATH Referral Yes
[2019-02-23 15:16] LABS: Bronch Source Right Middle Lobe
[2019-02-23] MEDS: piperacillin-tazobactam 3.375 GM in sodium chloride 0.9% (plus) 50 ML IV (15:29)
[2019-02-23] MEDS: HYDROcodone-acetaminophen 5-325 mg Tablet 1 TAB PO (20:12)
[2019-02-23] MEDS: budesonide 0.5 mg/2 mL Neb INHALATION (21:20)
[2019-02-24] VITALS (15 sets, daily range): BP systolic 147–180; BP diastolic 68–82; PULSE 62–100; RESP 17–28; TEMP 36.4–37; O2SAT 91–100; BMI 28.5
[2019-02-24] MEDS: ipratropium-albuterol 3 mL Neb INHALATION ×4 (02:24→16:00)
[2019-02-24] MEDS: heparin 5,000 unit/mL INJ 1 mL 5000 UNIT SUBCUT (05:43)
[2019-02-24 06:23] LABS: Basophils % 0.5 %; Eosinophils # 0.3 10^3/uL (0.0-0.8); Eosinophils % 5.6 %; Hematocrit 30.8 % (37.0-47.0); Hemoglobin 9.6 g/dL (11.5-15.3); Lymphocytes # 1.7 10^3/uL (0.8-4.8); Lymphocytes % 31.4 %; Mean Corpuscular HGB Conc 31.2 g/dL (30.0-36.0); Mean Corpuscular Hemoglobin 31.7 pg (28.0-34.0); Mean Corpuscular Volume 101.7 fL (81-99); Mean Platelet Volume 10.7 fL (7.4-10.4); Monocytes # 0.9 10^3/uL (0.2-0.9); Monocytes % 16.2 %; Neutrophils # 2.6 10^3/uL (1.8-7.7); Neutrophils % 46.1 %; Nucleated Red Blood Cells % 0 %; Platelet Count 209 10^3/cmm (130-400); Red Blood Count 3.03 10^6/uL (4.1-5.3); Red Cell Distribution Width 14.4 % (12.1-15.1); White Blood Count 5.6 10^3/uL (4.0-10.0)
[2019-02-24 06:38] LABS: Alanine Aminotransferase 22 U/L (0-33); Albumin Level 3.8 g/dL (3.5-5.2); Alkaline Phosphatase 115 IU/L (35-105); Anion Gap 18.2 (5-19); Aspartate Amino Transferase 27 U/L (0-32); Blood Urea Nitrogen 40 mg/dL (8-23); Calcium 9.9 mg/Dl (8.8-10.2); Carbon Dioxide 28 mmol/L (22-29); Chloride 94 mmol/L (98-107); Globulin 3.7 g/dL (1.3-4.6); Glomerular Filtration Rate 8.2 mL/min (90-130); Glucose 98 mg/dL (74-106); Potassium 4.2 mmol/L (3.5-5.1); Sodium 136 mmol/L (136-145); Total Bilirubin 0.3 mg/dL (0.15-1.2); Total Protein 7.5 g/dL (6.6-8.7)
[2019-02-24] MEDS: budesonide 0.5 mg/2 mL Neb INHALATION (07:19)
[2019-02-24] MEDS: hyDRALAzine 10 mg Tablet PO ×2 (08:38→15:44)
[2019-02-24] MEDS: azithromycin 250 mg Tablet 500 MG PO (08:39)
[2019-02-24] MEDS: amlodipine 10 mg Tablet PO (08:39)
[2019-02-24] MEDS: fluticasone nasal spray 16gm Btl 2 SPRAY NASAL (08:44)
--- NOTE | 2019-02-24 09:07 | PC.NURSE ---
THIS NURSE ENTERED PATIENT ROOM TO ADMINISTER MORNING MEDICATIONS. PATIENT WAS FOUND SITTING ON THE EDGE OF BED EATING BREAKFAST. PATIENT WAS EXHIBITING SOME ELEVATED BLOOD PRESSURE AND WAS STARTING TO DEVELOP A HEADACHE. SCHEDULED BLOOD PRESSURE MEDICATION GIVEN. IT WAS OBSERVED THAT PATIENT'S SCHEDULED RENVELA HAS BEEN BEING NOT GIVEN IN THE MEDICATION ADMINISTRATION RECORD. PATIENT WAS ASKED WHY SHE HAD NOT BEEN TAKING THE MEDICATION. PATIENT REPORTED THAT SHE HAD BEEN TAKING THE MEDICATION BUT IT HAD BEEN OUT OF HER OWN PILLS THAT HER HAD BROUGHT HER. PATIENT WAS EDUCATED ON THE DANGERS OF TAKING HOME MEDICATIONS WITHOUT STAFF KNOWING AND WITHOUT HAVING A DOCTOR'S ORDER FOR THE MEDICATION. I EXPLAINED THAT IT WAS POLICY THAT ALL HOME MEDS BE LOCKED UP. PATIENT ASKED THAT WE NOT DO THAT AND SHE WOULD LIKE THEM KEPT WITH HER. PATIENT RE-EDUCATED NOT TO TAKE MEDICATIONS THAT STAFF IS UNAWARE OF.
--- NOTE | 2019-02-24 09:20 | PC.NURSE ---
NURSE RAISA APPROACHED THIS NURSE TO REPORT THAT SHE FOUND PATIENT WITH A HANDFUL OF RANDOM PILLS IN HER HAND. I ASKED JOLIE RN CORPORATE QUALITY ASSURANCE MANAGER TO GO SPEAK TO PATIENT. PATIENT REPORTED THAT SHE WOULD SEND MEDICAITONS HOME WITH HER .
--- NOTE | 2019-02-24 10:44 | P.PN_ITS ---
Subjective Subjective: Interval history: feels better. has heart racing. no n/v/f/c/nieto/d Medications: Reviewed: Yes Vitals/I&O/Wt Last Vital Signs Temp 97.9 F 02/24/19 08:00 Pulse 91 02/24/19 08:00 Resp 18 02/24/19 08:00 BP 180/82 02/24/19 08:00 Pulse Ox 98 02/24/19 08:00 02/23/19 02/24/19 02/24/19 22:59 06:59 14:59 Intake Total 30 / 30 250 / 280 240 / 240 Balance 30 / 30 250 / 280 240 / 240 Weight last 48 hrs Weight 64.093 kg Weight 64.093 kg Weight 66.179 kg Physical Exam Narrative: EXAM NARRATIVE: comfortable in bed, NARD Const: COMMON NORMALS: oriented x3 HENMT: COMMON NORMALS: normocephalic HEAD & SCALP: normocephalic Neck/C-Spine: COMMON NORMALS: no JVD Chest: COMMONS NORMALS: inspection of chest normal Resp: EFFORT & INSPECTION: Yes able to speak in complete sentences AUSCULTATION: rales and rhonchi Cardio: COMMON NORMALS: no JVD, S1 normal heart sound and S2 normal heart sound RATE: tachycardic HEART SOUNDS: S1 normal, S2 normal and murmur (no murmur) GI: COMMON NORMALS: normal to inspection, nondistended, normoactive bowel sounds and soft to palpation AUSCULTATION: Yes normoactive bowel sounds PALPATION: Yes soft PERCUSSION: normal to percussion Extremity: GENERAL: Yes normal exam except as noted OTHER: rue avf w/ thrill and bruit Neuro: COMMON NORMALS: oriented x3 Data Micro: Micro: Microbiology 02/22/19 10:16 Gram Stain - Final Lung Right Upper Lobe Bronchoalveolar [place] Culture - Fin al 02/18/19 20:57 Urine Culture - Fi nal Urine,Clean Catch Escherichia col i Enterococcus fa ecalis 02/18/19 18:21 Blood Culture - Fi nal Blood NO GROWTH AFTER 5 DAYS 02/18/19 18:07 Blood Culture - Fi nal Blood NO GROWTH AFTER 5 DAYS A&P Assessment and plan (1) ESRD (end stage renal disease) on dialysis: 1. esrd- hd in am 2. pna- renal dose abx 3. anemia management -epo 4. bone- mineral-metabolism of ESRD- check phos and pth Status: Acute Code(s): N18.6 - End stage renal disease; Z99.2 - Dependence on renal dialysis Additional A&P Information 1/ pna- abx per pulm/ medicine- renal dose 2. anemia- epo per protocol no iron w/ high ferritin 3. ESRD- hd in am -challenge fluid removal 4. htn- inc meds Attestations Medical Necessity Statement*: per hospitalist Time Spent in Patient Care: 16 - 35 minutes (>than 50% of time spent in counselling and/or direct pt care on unit) . 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
[2019-02-24] MEDS: sevelamer 800 mg Tablet PO (12:36)
--- NOTE | 2019-02-24 13:49 | PM.PN ---
Subjective Subjective: Interval history: The patient seems to be doing similar to how she did before. Although, the patient states that she is feeling better. Yesterday the patient had exertional desaturation when she ambulated. The microbiologic data from the bronchoscopy did not show any significant bacterial growth. However, interestingly, the bronchoalveolar lavage fluid cell count showed an eosinophil count of 17%. The patient remains hemodynamically stable and afebrile. Vitals/I&O/Wt Last Vital Signs Temp 98.0 F 02/24/19 11:43 Pulse 78 02/24/19 11:43 Resp 20 H 02/24/19 11:43 BP 168/78 02/24/19 11:43 Pulse Ox 98 02/24/19 11:43 02/23/19 02/24/19 02/24/19 22:59 06:59 14:59 Intake Total 30 / 30 250 / 280 240 / 240 Balance 30 / 30 250 / 280 240 / 240 Weight last 48 hrs Weight 141 lb 4.8 oz Weight 141 lb 4.8 oz Weight 145 lb 14.4 oz Physical Exam Narrative: EXAM NARRATIVE: General: Patient is awake alert and oriented, in no significant distress. Neck: No JVD, no cervical or supraclavicular lymphadenopathy. Respiratory: Inspection: No visible deformity of the chest wall, a port in the left chest Palpation: Trachea is mildly deviated to the right, bilateral symmetric expansion but reduced Percussion: Bilateral tympanic percussion note both anterior and posteriorly Auscultation: No crackles, bilateral diffuse wheezing and rhonchi, right greater than left Cardiovascular: Regular rate and rhythm, S1-S2 present, no murmur, no right ventricular heave, no peripheral edema. Abdomen: Soft, nontender, nondistended, positive bowel sound Musculoskeletal: Significant joint deformity from the rheumatoid arthritis, gait was not assessed Skin: No rash Neuro: Mental status is normal, no gross cranial nerve deficit, normal motor and coordination. Data Micro: Micro: Microbiology 02/22/19 10:16 Gram Stain - Final Lung Right Upper Lobe Bronchoalveolar [place] v[place] Culture - Fin al 02/18/19 20:57 Urine Culture - Fi nal Urine,Clean Catch Escherichia col i Enterococcus fa ecalis 02/18/19 18:21 Blood Culture - Fi nal Blood NO GROWTH AFTER 5 DAYS 02/18/19 18:07 Blood Culture - Fi nal Blood NO GROWTH AFTER 5 DAYS Other Data: Other data: The bronchoalveolar lavage fluid cell count showed a 70% eosinophil count. The patient also has elevated eosinophil count on the peripheral blood. I have reviewed her laboratory data. A&P Assessment and plan (1) Acute respiratory failure with hypoxia: Because of the patient's acute hypoxic respiratory failure is unclear at this time. There is no evidence of a bacterial pneumonia. The microbiologic work-up from the bronchoscopy sample is negative so far. Interestingly, there was 17% eosinophils noted in the bronchoalveolar lavage fluid. The patient's radiology data is not consistent with acute eosinophilic pneumonia and a bronchoalveolar lavage fluid eosinophil count greater than 25% is required to make a diagnosis of acute eosinophilic pneumonia. She does not have any clinical features suggestive of eosinophilic granulomatosis with polyangiitis. Moreover, a peripheral blood eosinophilia greater than 10% is required to consider a diagnosis of a GPA. Given the patient's diffuse wheezing and rhonchi on physical examination and significantly elevated bronchoalveolar fluid eosinophil level, I think the patient is suffering from significant hypersensitivity of her airway possibly brought on by a viral infection. The patient is currently on [id number] DuoNeb as well as Pulmicort nebulization and the patient has refused to use prednisone. I believe the patient would significantly feel better with some prednisone therapy. I will discuss with her and her family with the possibility of using 20 mg of prednisone and see if that helps her. The patient will require outpatient inhaled steroid or nebulized steroid and bronchodilator therapy when she is discharged from the hospital. I will follow-up with the patient as outpatient and optimize her therapy. The patient is most likely going to need oxygen when discharged. Status: Acute Code(s): J96.01 - Acute respiratory failure with hypoxia (2) Community acquired pneumonia: The patient is currently on Zosyn and azithromycin. The anti-inflammatory property of the azithromycin might also help with the bronchospasm. 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
--- NOTE | 2019-02-24 22:24 | PM.DCS ---
Discharge Providers Date of Admission: 02/18/19 21:52 Date of Discharge: 02/24/19 Attending Provider at Admission: Ale Pina MD Attending Provider at Discharge: Giana Alexander MD Primary Care Provider: Erwin Layne MD Diagnoses at Discharge Discharge Diagnosis (1) Acute respiratory failure with hypoxia: Status: Acute (2) Community acquired pneumonia: Status: Acute Qualifiers: Laterality: right Lung location: unspecified part of lung Qualified Code(s): J18.9 - Pneumonia, unspecified organism Reason for Visit Reason for Visit: Reason For Visit: cough, low o2 Hospital Course Discharge Summary: From [facility] Brandon Woodward is a 69 year old female who presented to the emergency room with hypoxemia, shortness of breath and cough. She started not feeling well on Thursday. At that point she had a mildly productive cough. Symptoms have progressively worsened through the week. On Thursday she woke up coughing and it was quite severe. Cough is been productive of yellowish sputum. No blood is been noted. She has been more short of breath with less exertion. She did keep her usual dialysis appointment on Thursday but they sent her to the urgent care clinic. At the urgent care clinic she was noted to be hypoxic and they recommended that she come to the emergency room. She has no personal history of pulmonary disease associated with her rheumatoid arthritis. No history of heart failure. She was able to have her full episode of dialysis today. She has never required oxygen before. On arrival to the emergency room saturations were 82% on room air. With 3 L by nasal cannula saturations came up to the mid 90s. Chest x-ray showed an opacity in the left lower lobe concerning for atelectasis versus infiltrate. Patient received Solu-Medrol, breathing treatment and antibiotics. She is being admitted for further evaluation and treatment. Of note patient received last dose of Rituxan for rheumatoid arthritis on February 01. She skipped this past week's dose due to her cough and not feeling well. She has had issues with recurrent infections in her left hand. Last dose of Rituxan prior to February 01 was back in September. During course of admission she had a pulmonary consult and underwent bronchoscopy for further evaluation of pneumonia. Results from this procedure were notable for ~17% eosinophilia from bronch wash. respiratory viral panel remains pending. Bacterial cx showed only pharyngeal pedro luis. Overall impression is that of possible viral pneumonia with reactive airway disease. Organizing pneumonia is also a possibilty, however radiological findings did not seem classical. She received empiric abx treatment with zosyn/azithromycin and vancomycin. At the time of discharge she is no longer requiring supplemental 02. Breathing is improved, but not back at baseline. She remained hesitant to use streoids during course of admission due to concerns over past side effects of weight gain requiring more frequent dialysis. However, at time of discharge, she did agree to try low dose streoids for a few days. Prednisone 20mg qd was added for a week. She is recommened to follow up with capital equipment specialist in the next week. Physical Exam Narrative: EXAM NARRATIVE: GEN: Awake, alert and oriented, no acute distress CVS: S1S2 N RS: CTA B/L Abd: Soft, nt/nd , bs+ [employer] REPORTER: no focal neuro deficits Discharge Data Data Completed and Pending: Completed Studies During Hospitalization Category Date Time Status CT chest wo con 7 1250 Urgent Cat Scan 02/19/19 13:23 Completed XR chest 1V remedios ble [id number] Routine Exams 02/21/19 18:53 Completed XR chest 1V remedios ble [id number] Stat Exams 02/18/19 17:49 Completed Pending at discharge Category Date Time Status AFB [Mycobacteria , Culture w/Fluor] Routine Lab 02/22/19 10:16 Received Fungal Culture no t HR/SK/BL Routine Lab 02/22/19 10:16 Received Legionella Pneumo philla DFA Routine Lab 02/22/19 10:16 Received Miscellaneous Bisi t Routine Lab 02/22/19 10:16 Received Miscellaneous Bisi t Routine Lab 02/22/19 10:16 Received Miscellaneous Bisi t Routine Lab 02/22/19 10:16 Received Miscellaneous Bisi t Routine Lab 02/22/19 15:15 Received Respiratory Viral Panel PCR Routine Lab 02/22/19 10:39 Ordered Labs from last 24 hours 02/24/19 02/24/19 05:48 05:48 WBC 5.6 RBC 3.03 L Hgb 9.6 L Hct 30.8 L MCV 101.7 H MCH 31.7 MCHC 31.2 RDW 14.4 Plt Count 209 MPV 10.7 H Neut % (Auto) 46.1 Lymph % (Auto) 31.4 [place] % (Auto) 16.2 Eos % (Auto) 5.6 Baso % (Auto) 0.5 Neut # (Auto) 2.6 Lymph # (Auto) 1.7 [place] # (Auto) 0.9 Eos # (Auto) 0.3 Baso # (Auto) 0.0 Nucleated RBC % (a uto) 0 Nucleated RBCs # 0.0 Sodium 136 Potassium 4.2 Chloride 94 L Carbon Dioxide 28 Anion Gap 18.2 BUN 40 H Creatinine 5.2 H GFR Calculation 8.2 L Glucose 98 Calcium 9.9 Total Bilirubin 0.3 AST 27 ALT 22 Alkaline Phosphata se 115 H Total Protein 7.5 Albumin 3.8 Globulin 3.7 Vitals: Last Vital Signs Temp 98.6 F 02/24/19 17:06 Pulse 94 02/24/19 17:06 Resp 18 02/24/19 17:06 BP 176/82 02/24/19 17:06 Pulse Ox 94 02/24/19 17:06 Discharge Plan Discharge Patient Disposition: Home, Self-Care Condition: Stable Prescriptions: New prednisone 20 mg tablet 20 mg PO DAILY 10 Days Qty: 10 RF: 0 acetaminophen 325 mg Tablet 650 mg PO Q6H PRN (Reason: Mild/Mod Pain Or Temp >/= 101) Qty: 0 RF: 0 Advair HFA 115-21 mcg/actuation HFA aerosol inhaler 2 inh INHALATION BID Qty: 12 RF: 0 hydralazine 10 mg Tablet 10 mg PO TID 30 Days Qty: 90 RF: 0 Continued clonidine HCl 0.1 mg tablet 0.1 mg PO Q6H PRN (Reason: Blood Pressure) RF: 0 labetalol 200 mg tablet 400 mg PO TID RF: 0 hydrocodone-acetaminophen 10-325 mg tablet 1 tab PO QID PRN (Reason: Pain) RF: 0 amlodipine 10 mg Tablet 10 mg PO BID RF: 0 diazepam 5 mg tablet 5 mg PO BID PRN (Reason: Anxiety) RF: 0 Entocort EC 3 mg Capsule,Delayed,Extend.Release 3 mg PO DAILY RF: 0 Renvela 800 mg Tablet 800 mg PO TID RF: 0 Discharge Orders: Discharge Order (Routine); Ordered 02/24/19 Ordered By: Giana Alexander Referrals: Peace Fish MD [Physician] - 4-7 days (Your appointment with Dr. Polina is scheduled for 03/02/2019 9:30 am. Please bring your medications with you to this appointment. ) Discharge Diet: Usual diet Discharge Activity: Resume usual activity Patient Instructions: Anemia, Acetaminophen (By mouth), Prednisone (By mouth), Hydralazine (By mouth), Fluticasone/Salmeterol (By breathing), Community-acquired Pneumonia (DC), Hypoxia (GEN) Discharge Date/Time: 02/24/19 17:09 Discharge Attestations Time Spent in Discharge Care*: less than 30 min Quality Metrics Clinical Quality Measures During this hospital stay, did patient experience: None Coding Level of Care Code Acute Quality Assurance Project Manager for [facility] Diagnoses Acute respiratory failure with hypoxia J96.01 Community acquired pneumonia J18.9 Laterality: right Lung location: unspecified part of lung
--- NOTE | 2019-02-28 13:24 | PC.SOCIAL ---
Per Director Leighann Singh, sent copy of addendum to CT Scan report to Sharonda at Dr. Roverto Hood's office to fax number [phone]. Successful fax confirmation was received.
== END 2019-02-24 17:09 | disposition home or self-care (01) | DRG 193 ==
LOC: ER 17:49 → MEDSURG 21:53
PROVIDERS: Internal Medicine Critical Care Medicine; Internal Medicine Nephrology; Student in an Organized Health Care Education/Training Program; Admitting Provider Hospitalist; Emergency Provider Emergency Medicine; Family Provider Family Medicine; PCP Family Medicine; Visit Provider Student in an Organized Health Care Education/Training Program
PROC: 0BJ08ZZ Inspection of Tracheobronchial Tree, Via Natural or Artificial Opening Endoscopic (ICD-10-PCS; CPT 31622; principal; 2019-02-22 12:00)
DX: J18.9 Pneumonia, unspecified organism (principal); N18.6 End stage renal disease; J96.01 Acute respiratory failure with hypoxia; I12.0 Hypertensive chronic kidney disease with stage 5 chronic kidney disease or end stage renal disease; N25.81 Secondary hyperparathyroidism of renal origin; M06.9 Rheumatoid arthritis, unspecified; K52.9 Noninfective gastroenteritis and colitis, unspecified; D63.1 Anemia in chronic kidney disease; G47.33 Obstructive sleep apnea (adult) (pediatric); M81.0 Age-related osteoporosis without current pathological fracture; M85.80 Other specified disorders of bone density and structure, unspecified site; Z90.49 Acquired absence of other specified parts of digestive tract; Z99.2 Dependence on renal dialysis
CPT/HCPCS: 12345; 36415; 36416; 71045; 71250; 80048; 80053; 80202; 80500; 81001; 82728; 82962; 83540; 83550; 83605; 83615; 83735; 83880; 84145; 84484; 85025; 85610; 85651; 87015; 87040; 87070; 87077; 87086; 87102; 87116; 87186; 87205; 87206; 87278; 87281; 87449; 87641; 87798; 87801; 87804; 89050; 90935; 93005; 94640; 96372; 96374; 96375; 97161; 97530; 99283; J1644; J2001; J2250; J2270; J2405; J2543; J2704; J2710; J2930; J3010; J3370; J3490; J7040; J7050; J7626; Q0144; Q3014

== ENCOUNTER 2019-03-14 16:56 | Emergency (ER) | payer MEDICARE, OTHER, SELFPAY ==
[2019-03-14 17:11] VITALS: BP 173/50; PULSE 73; RESP 16; TEMP 36.7; O2SAT 91; BMI 27.5
--- NOTE | 2019-03-14 17:18 | PC.NURSE ---
Patient seated in waiting room at this time. Will continue to monitor.
--- NOTE | 2019-03-14 17:33 | XR_ITS ---
WS: [id number] CHEST XRAY TECHNIQUE: Portable chest. CLINICAL INFORMATION: cp COMPARISON: None. FINDINGS: Heart: Normal cardiac silhouette. Lungs: Chronic emphysematous changes. No acute pulmonary infiltrates. No focal pneumonia. Tiny calcif ied granulomas. Bones: Normal visualized bony structures. XR/XR chest 1V portable [id number] IMPRESSION: No acute chest findings
--- NOTE | 2019-03-14 17:34 | ECG_ITS ---
Measurements Intervals [place] Rate: 74 P: 60 MO: 155 QRS: 29 QRSD: 86 T: 42 QT: 390 QTc: 434 SINUS RHYTHM NONSPECIFIC T-WAVE ABNORMALITY Compared to ECG 02/19/2019 00:18:39 T-wave abnormality now present Left ventricular hypertrophy no longer present Prolonged QT interval no longer present Electronically Signed On 03-15-2019 20:11:20 BACK HOE OPERATOR by Jillian Garcia M.D. [email or web address]
[2019-03-14 18:40] LABS: Basophils # 0.1 10^3/uL (0.0-0.1); Eosinophils # 0.1 10^3/uL (0.0-0.8); Eosinophils % 1.4 %; Hematocrit 32.1 % (37.0-47.0); Hemoglobin 9.9 g/dL (11.5-15.3); Lymphocytes # 1.1 10^3/uL (0.8-4.8); Mean Corpuscular HGB Conc 30.8 g/dL (30.0-36.0); Mean Corpuscular Volume 100.6 fL (81-99); Mean Platelet Volume 10.8 fL (7.4-10.4); Monocytes # 1.1 10^3/uL (0.2-0.9); Monocytes % 13.5 %; Neutrophils # 5.9 10^3/uL (1.8-7.7); Neutrophils % 70.7 %; Nucleated Red Blood Cells % 0.2 %; Platelet Count 248 10^3/cmm (130-400); Red Blood Count 3.19 10^6/uL (4.1-5.3); Red Cell Distribution Width 15.9 % (12.1-15.1); White Blood Count 8.3 10^3/uL (4.0-10.0)
[2019-03-14 19:06] LABS: Alanine Aminotransferase 27 U/L (0-33); Albumin Level 4.1 g/dL (3.5-5.2); Alkaline Phosphatase 228 IU/L (35-105); Aspartate Amino Transferase 28 U/L (0-32); Blood Urea Nitrogen 21 mg/dL (8-23); Calcium 10.6 mg/dL (8.5-10.5); Carbon Dioxide 30 mmol/L (22-29); Chloride 92 mmol/L (98-107); Globulin 4.3 g/dL (1.3-4.6); Glomerular Filtration Rate 13.4 mL/min (90-130); Glucose 107 mg/dL (74-106); Sodium 136 mmol/L (136-145); Total Bilirubin 0.3 mg/dL (0.15-1.2); Total Protein 8.4 g/dL (6.6-8.7)
--- NOTE | 2019-03-14 20:02 | ED_ITS ---
Entered by Dawna Pierre, acting as scribe for Anatoly Bertrand DO Mar 14, 2019 16:56 HPI - Female Genitourinary General: Chief complaint: Shortness of Breath/Dyspnea Stated complaint: sob Time Seen by Provider: 03/14/19 19:46 Source: patient and family Mode of arrival: ambulatory History of Present Illness: Associated symptoms: Deny abdominal pain, headache(s), nausea or syncope Review of Systems Const: Denies: fever, chills, body aches, fatigue, malaise or night sweats Eyes: Denies: change in vision or blurry vision ENMT: Denies: throat pain, oral sores/lesions, dental pain, nasal discharge or nasal congestion Card: Denies: chest pain, palpitations, irregular heart rhythm, edema, syncope, shortness of breath on exertion, shortness of breath when lying down or leg pain with exertion Resp: Denies: shortness of breath, productive cough, non-productive cough or wheezing GI: Denies: abdominal pain, nausea, vomiting, vomiting blood, coffee grounds in vomit, difficulty swallowing, heartburn/indigestion, diarrhea, constipation, cramping, blood in stool or black tarry stool : Denies: flank pain, painful urination, urinary frequency, urinary urgency, urinary incontinence or blood in urine Musc: Denies: neck pain, back pain, extremity pain, extremity swelling, joint pain or joint swelling Skin/Breast: Denies: rash, itching or redness Neuro: Denies: headache, numbness in extremities, weakness in extremities, changes in sensation, lack of coordination, difficulty walking, frequent falls, dizziness, vertigo or confusion Psych: Denies: anxiety, depression, loss of interest, visual hallucinations, auditory hallucinations, suicidal ideation or homicidal ideation Endo: Denies: excessive urination, excessive thirst, tired all the time or cold intolerance Ben/Lymph: Denies: easy bruising, easy bleeding, petechiae, enlarged lymph nodes or tender lymph nodes PFSH ED PFSH: Statuses (acute, chronic, etc) shown below reflect problem list status as previously entered and may not be historically accurate Social History Smoking and tobacco status: never smoked Alcohol intake: never Current occupational status: retired History of recent travel: No Current gender identity: Female Physical Exam Const: COMMON NORMALS: average body habitus, oriented x3 and alert GENERAL APPEARANCE: cooperative, comfortable, well kempt and well developed NUTRITIONAL APPEARANCE: obese ORIENTATION/CONSCIOUSNESS: Yes awake, Yes o riented to person and Yes oriented to place HENMT: COMMON NORMALS: normocephalic, head/scalp atraumatic, external ears nor mal, EAC's normal, TM's normal bilaterally, external nose normal, moist oral mucous membranes and oropharynx normal HEAD & SCALP: normocephalic and atraumatic NOSE: external nose normal EXTERNAL EAR: Yes external ears normal EXTERNAL AUDITORY CANAL: EAC's normal TYMPANIC MEMBRANE: TM's normal bilaterally MOUTH: oral and palatal mucosa normal, lip normal and tongue normal THROAT: posterior oropharynx normal and tonsils normal Eye: COMMON NORMALS: PERRL, EOMs intact bilaterally, conjunctivae normal and no scleral icterus CONJUNCTIVA: Yes conjunctivae normal PUPIL: Yes PERRL Neck/C-Spine: COMMON NORMALS: full ROM, no lymphadenopathy, supple, no meningeal signs and thyroid normal THYROID: thyroid normal and asymmetrical Lymph: LYMPHATIC: no lymphadenopathy noted Resp: COMMON NORMALS: normal respiratory effort, no retractions, no use of accessory muscles and clear to auscultation bilaterally AUSCULTATION: clear to auscultation bilaterally Cardio: COMMON NORMALS: regular rate and regular rhythm RATE: regular rate RHYTHM: regular rhythm HEART SOUNDS: no murmurs GI: COMMON NORMALS: normal to inspection, nondistended, normoactive bowel sounds, soft to palpation and no hepatosplenomegaly AUSCULTATION: Yes normoactive bowel sounds PALPATION: Yes soft and Yes no hepatosplenomegaly : COMMON NORMALS: Yes no CVA tenderness BLADDER/KIDNEY EXAM: Yes no CVA tenderness Back/Pelvis: COMMON NORMALS: no CVA tenderness LUMBAR SPINE/LOWER BACK: Yes normal to inspection Extremity: COMMON NORMALS: no clubbing, cyanosis or edema, no calf tenderness and no pedal edema Neuro: COMMON NORMALS: oriented x3 SENSORIUM/ORIENTATION: Yes alert, Yes oriented to person and Yes oriented to place MENINGEAL SIGNS: Yes no meningeal signs Psych: APPEARANCE: Yes well kempt Skin: COMMON NORMALS: no rashes or lesions noted and skin turgor normal GENERAL SKIN EXAM: no rashes or lesions noted and turgor normal Course Vital Signs: Vital signs: Vital Signs Temperature 98.1 F 03/14/19 17:11 Pulse Rate 73 03/14/19 17:11 Respiratory Rate 16 03/14/19 17:11 Blood Pressure 173/50 03/14/19 17:11 Pulse Oximetry 91 03/14/19 17:11 MDM - Female Lab Data: Labs: Lab Results 03/14/19 03/14/19 Range/Units 18:20 18:20 WBC 8.3 (4.0-10.0) 10^3/ uL RBC 3.19 L (4.1-5.3) 10^6/u L Hgb 9.9 L (11.5-15.3) g/dL Hct 32.1 L (37.0-47.0) % MCV 100.6 H (81-99) fL MCH 31.0 (28.0-34.0) pg MCHC 30.8 (30.0-36.0) g/dL RDW 15.9 H (12.1-15.1) % Plt Count 248 (130-400) 10^3/c mm MPV 10.8 H (7.4-10.4) fL Neut % (Auto) 70.7 % Lymph % (Auto) 13.0 % [place] % (Auto) 13.5 % Eos % (Auto) 1.4 % Baso % (Auto) 1.0 % Neut # (Auto) 5.9 (1.8-7.7) 10^3/u L Lymph # (Auto) 1.1 (0.8-4.8) 10^3/u L [place] # (Auto) 1.1 H (0.2-0.9) 10^3/u L Eos # (Auto) 0.1 (0.0-0.8) 10^3/u L Baso # (Auto) 0.1 (0.0-0.1) 10^3/u L Nucleated RBC % (a uto) 0.2 % Nucleated RBCs # 0.0 /100WBC Sodium 136 (136-145) mmol/L Potassium 4.0 (3.5-5.1) mmol/L Chloride 92 L (98-107) mmol/L Carbon Dioxide 30 H (22-29) mmol/L Anion Gap 18.0 (5-19) BUN 21 (8-23) mg/dL Creatinine 3.4 H (0.5-0.9) mg/dL GFR Calculation 13.4 L (90-130) mL/min Glucose 107 H (74-106) mg/dL Calcium 10.6 H (8.5-10.5) mg/dL Total Bilirubin 0.3 (0.15-1.2) mg/dL AST 28 (0-32) U/L ALT 27 (0-33) U/L Alkaline Phosphata se 228 H (35-105) IU/L NT-Pro-B Natriuret Pep 70209 H (0-125) pg/mL Total Protein 8.4 (6.6-8.7) g/dL Albumin 4.1 (3.5-5.2) g/dL Globulin 4.3 (1.3-4.6) g/dL Discharge Plan Discharge Prescriptions: No Action betamethasone dipropionate 0.05 % cream TOPICAL RF: 0 clindamycin phosphate 2 % cream VAGINAL RF: 0 hydrocodone-acetaminophen 10-325 mg tablet 1 tab PO QID PRN (Reason: Pain) 30 Days Qty: 120 RF: 0 clonidine HCl 0.1 mg tablet 0.1 mg PO Q6H PRN (Reason: Blood Pressure) RF: 0 labetalol 200 mg tablet 400 mg PO TID RF: 0 amlodipine 10 mg Tablet 10 mg PO BID RF: 0 diazepam 5 mg tablet 5 mg PO BID PRN (Reason: Anxiety) RF: 0 Entocort EC 3 mg Capsule,Delayed,Extend.Release 3 mg PO DAILY RF: 0 Renvela 800 mg Tablet 800 mg PO TID RF: 0 acetaminophen 325 mg Tablet 650 mg PO Q6H PRN (Reason: Mild/Mod Pain Or Temp >/= 101) Qty: 0 RF: 0 Advair HFA 115-21 mcg/actuation HFA aerosol inhaler 2 inh INHALATION BID Qty: 12 RF: 0 hydralazine 10 mg Tablet 10 mg PO TID 30 Days Qty: 90 RF: 0 Coding Level of Care Code ED Biometric Technician for [facility] Fwmarbella
[2019-03-14 20:39] VITALS: BP 166/67; PULSE 65; RESP 20; O2SAT 92
--- NOTE | 2019-03-14 20:39 | PC.NURSE ---
Patient reports that she started to get short of breath Thursday. Patient states that Thursday she had to use her CPAP due to her oxygen. Patient reports that today she had to borrow a friends home O2 due to low spo2. Patient states she never has had this problem up till 3 weeks ago that she got diagnosed with pneumonia. Patients is wanting her sent home with home O2. Patient reports the shortness of breath improved after her dialysis today.
--- NOTE | 2019-03-14 20:46 | ED_ITS ---
Entered by [id number], acting as scribe for Alvaro Willis MD Mar 14, 2019 16:56 HPI - SOB/Dyspnea General: Chief Complaint: Shortness of Breath/Dyspnea Stated Complaint: sob Time Seen by Provider: 03/14/19 19:46 PFSH ED PFSH: Statuses (acute, chronic, etc) shown below reflect problem list status as previously entered and may not be historically accurate Social History Smoking and tobacco status: never smoked Alcohol intake: never Current occupational status: retired History of recent travel: No Current gender identity: Female Course Vital Signs: Vital signs: Vital Signs Temperature 98.1 F 03/14/19 17:11 Pulse Rate 94 03/14/19 22:27 Respiratory Rate 16 03/14/19 22:27 Blood Pressure 190/73 03/14/19 22:27 Pulse Oximetry 94 03/14/19 22:27 MDM - SOB/Dyspnea Lab Data: Labs: Lab Results 03/14/19 03/14/19 Range/Units 18:20 18:20 WBC 8.3 (4.0-10.0) 10^3/ uL RBC 3.19 L (4.1-5.3) 10^6/u L Hgb 9.9 L (11.5-15.3) g/dL Hct 32.1 L (37.0-47.0) % MCV 100.6 H (81-99) fL MCH 31.0 (28.0-34.0) pg MCHC 30.8 (30.0-36.0) g/dL RDW 15.9 H (12.1-15.1) % Plt Count 248 (130-400) 10^3/c mm MPV 10.8 H (7.4-10.4) fL Neut % (Auto) 70.7 % Lymph % (Auto) 13.0 % [place] % (Auto) 13.5 % Eos % (Auto) 1.4 % Baso % (Auto) 1.0 % Neut # (Auto) 5.9 (1.8-7.7) 10^3/u L Lymph # (Auto) 1.1 (0.8-4.8) 10^3/u L [place] # (Auto) 1.1 H (0.2-0.9) 10^3/u L Eos # (Auto) 0.1 (0.0-0.8) 10^3/u L Baso # (Auto) 0.1 (0.0-0.1) 10^3/u L Nucleated RBC % (a uto) 0.2 % Nucleated RBCs # 0.0 /100WBC Sodium 136 (136-145) mmol/L Potassium 4.0 (3.5-5.1) mmol/L Chloride 92 L (98-107) mmol/L Carbon Dioxide 30 H (22-29) mmol/L Anion Gap 18.0 (5-19) BUN 21 (8-23) mg/dL Creatinine 3.4 H (0.5-0.9) mg/dL GFR Calculation 13.4 L (90-130) mL/min Glucose 107 H (74-106) mg/dL Calcium 10.6 H (8.5-10.5) mg/dL Total Bilirubin 0.3 (0.15-1.2) mg/dL AST 28 (0-32) U/L ALT 27 (0-33) U/L Alkaline Phosphata se 228 H (35-105) IU/L NT-Pro-B Natriuret Pep 42708 H (0-125) pg/mL Total Protein 8.4 (6.6-8.7) g/dL Albumin 4.1 (3.5-5.2) g/dL Globulin 4.3 (1.3-4.6) g/dL Discharge Plan Discharge Patient Disposition: Home, Self-Care Clinical Impression: ESRD (end stage renal disease) on dialysis, Hypoxia Condition: Stable Prescriptions: No Action betamethasone dipropionate 0.05 % cream TOPICAL RF: 0 clindamycin phosphate 2 % cream VAGINAL RF: 0 hydrocodone-acetaminophen 10-325 mg tablet 1 tab PO QID PRN (Reason: Pain) 30 Days Qty: 120 RF: 0 clonidine HCl 0.1 mg tablet 0.1 mg PO Q6H PRN (Reason: Blood Pressure) RF: 0 labetalol 200 mg tablet 400 mg PO TID RF: 0 amlodipine 10 mg Tablet 10 mg PO BID RF: 0 diazepam 5 mg tablet 5 mg PO BID PRN (Reason: Anxiety) RF: 0 Entocort EC 3 mg Capsule,Delayed,Extend.Release 3 mg PO DAILY RF: 0 Renvela 800 mg Tablet 800 mg PO TID RF: 0 acetaminophen 325 mg Tablet 650 mg PO Q6H PRN (Reason: Mild/Mod Pain Or Temp >/= 101) Qty: 0 RF: 0 Advair HFA 115-21 mcg/actuation HFA aerosol inhaler 2 inh INHALATION BID Qty: 12 RF: 0 hydralazine 10 mg Tablet 10 mg PO TID 30 Days Qty: 90 RF: 0 Referrals: Erwin Layne MD [Primary Care Provider] - Coding Level of Care Code ED Buckle Gluer for Chg Fwd The documentation recorded by the lizibaisha, [id number], accurately reflects the service I personally performed and the decisions made by Lazaro martinez Korby, MD Mar 14, 2019 16:56
--- NOTE | 2019-03-14 20:47 | ED_ITS ---
Entered by Corine Guillen, acting as scribe for Alvaro Willis MD Mar 14, 2019 16:56 HPI - SOB/Dyspnea General: Chief Complaint: Shortness of Breath/Dyspnea Stated Complaint: sob Time Seen by Provider: 03/14/19 19:46 Source: patient, family and RN notes reviewed Mode of arrival: ambulatory Limitations: no limitations History of Present Illness: HPI Narrative: 69 yo female presents to ED with complaints of shortness of breath. The patient had dialysis today and became very short of breath following that. The patient receives dialysis 3 days a week (Thursday, Thursday, Thursday) and the spouse states the only way the patient breathes better at home (before she goes for dialysis on Thursday) is to place her on the CPAP. He said the patient had dialysis today and afterwards they placed her on oxygen, at which time the patient's oxygen was fine. He said the patient had 3-4 liters of fluid removed today. The spouse states she had pneumonia 3 weeks ago, following that her oxygen was fine so Dr Fish did not order oxygen for her at home. Spouse stated he called Dr Fish's office and he was advised to bring the patient to the ED. The patient's PCP is Dr Layne from [place]. NAHUN Arnold elicited complaint: shortness of breath Pertinent past history: other (dialysis) Onset (ago): day(s) (today) Context: other (patient is on dialysis 3 days per week) Timing: progressively worsening Severity: severe Exacerbating factors: lying flat, exertion and talking Relieving factors: oxygen and other (dialysis) Known history of: other (ESRD) Associated symptoms: Reports orthopnea; Deny abdominal pain, fever(s), nausea or vomiting Treatment prior to arrival: other (dialysis) Related Data: Home oxygen amount: none Review of Systems Const: Denies: fever, chills, body aches or change in appetite Eyes: Denies: blurry vision or eye discomfort ENMT: Denies: throat pain or dental pain Card: Reports: shortness of breath when lying down GI: Denies: abdominal pain, nausea, vomiting or diarrhea : Denies: painful urination Musc: Denies: neck pain or back pain Skin/Breast: Denies: rash Neuro: Denies: headache Psych: Denies: depression Ben/Lymph: Denies: easy bruising All/Imm: Denies: hives PFSH ED PFSH: Statuses (acute, chronic, etc) shown below reflect problem list status as previously entered and may not be historically accurate Social History Smoking and tobacco status: never smoked Alcohol intake: never Current occupational status: retired History of recent travel: No Current gender identity: Female Physical Exam Const: COMMON NORMALS: no apparent distress, oriented x3 and healthy appearing HENMT: COMMON NORMALS: normocephalic and head/scalp atraumatic HEAD & SCALP: normocephalic and atraumatic Eye: COMMON NORMALS: PERRL and EOMs intact bilaterally PUPIL: Yes PERRL Neck/C-Spine: COMMON NORMALS: full ROM and supple Chest: COMMONS NORMALS: inspection of chest normal and palpation of chest normal Resp: COMMON NORMALS: normal respiratory effort, no retractions, no use of accessory muscles and clear to auscultation bilaterally AUSCULTATION: clear to auscultation bilaterally Cardio: COMMON NORMALS: regular rate, regular rhythm and no murmurs RATE: regular rate RHYTHM: regular rhythm GI: COMMON NORMALS: normal to inspection, nondistended, normoactive bowel sounds, soft to palpation, non-tender and no masses PALPATION: Yes soft Extremity: COMMON NORMALS: normal to inspection and full ROM Neuro: COMMON NORMALS: oriented x3, moves all extremities and no focal motor deficits Psych: COMMON NORMALS: mental status grossly normal, thought process normal and cooperative THOUGHT PROCESS: normal thought process Skin: COMMON NORMALS: no rashes or lesions noted and no wounds GENERAL SKIN EXAM: no rashes or lesions noted Course Vital Signs: Vital signs: Vital Signs Temperature 98.1 F 03/14/19 17:11 Pulse Rate 68 03/14/19 22:51 Respiratory Rate 33 H 03/14/19 22:51 Blood Pressure 198/71 03/14/19 22:51 Pulse Oximetry 92 03/14/19 22:51 MDM - SOB/Dyspnea MDM Narrative: Medical decision making narrative: Patient presents here with dyspnea and hypoxia likely due to her renal disease. Patient does have an elevated BNP here and had periods of hypoxia. I strongly recommended admission but patient states she feels improved and just does not follow-up with her correctional officer captain. I informed her that she could get worse and that I highly recommend her to be admitted since she is hypoxic. Patient has decision make passing her decided to sign out AGAINST MEDICAL ADVICE. Informed him if they change her mind they are to return immediately. Patient understands and agrees to the plan. Lab Data: Labs: Lab Results 03/14/19 03/14/19 Range/Units 18:20 18:20 WBC 8.3 (4.0-10.0) 10^3/ uL RBC 3.19 L (4.1-5.3) 10^6/u L Hgb 9.9 L (11.5-15.3) g/dL Hct 32.1 L (37.0-47.0) % MCV 100.6 H (81-99) fL MCH 31.0 (28.0-34.0) pg MCHC 30.8 (30.0-36.0) g/dL RDW 15.9 H (12.1-15.1) % Plt Count 248 (130-400) 10^3/c mm MPV 10.8 H (7.4-10.4) fL Neut % (Auto) 70.7 % Lymph % (Auto) 13.0 % [place] % (Auto) 13.5 % Eos % (Auto) 1.4 % Baso % (Auto) 1.0 % Neut # (Auto) 5.9 (1.8-7.7) 10^3/u L Lymph # (Auto) 1.1 (0.8-4.8) 10^3/u L [place] # (Auto) 1.1 H (0.2-0.9) 10^3/u L Eos # (Auto) 0.1 (0.0-0.8) 10^3/u L Baso # (Auto) 0.1 (0.0-0.1) 10^3/u L Nucleated RBC % (a uto) 0.2 % Nucleated RBCs # 0.0 /100WBC Sodium 136 (136-145) mmol/L Potassium 4.0 (3.5-5.1) mmol/L Chloride 92 L (98-107) mmol/L Carbon Dioxide 30 H (22-29) mmol/L Anion Gap 18.0 (5-19) BUN 21 (8-23) mg/dL Creatinine 3.4 H (0.5-0.9) mg/dL GFR Calculation 13.4 L (90-130) mL/min Glucose 107 H (74-106) mg/dL Calcium 10.6 H (8.5-10.5) mg/dL Total Bilirubin 0.3 (0.15-1.2) mg/dL AST 28 (0-32) U/L ALT 27 (0-33) U/L Alkaline Phosphata se 228 H (35-105) IU/L NT-Pro-B Natriuret Pep 62237 H (0-125) pg/mL Total Protein 8.4 (6.6-8.7) g/dL Albumin 4.1 (3.5-5.2) g/dL Globulin 4.3 (1.3-4.6) g/dL Imaging Data^: CXR: Attestation: I personally reviewed and interpreted this imaging study as fol lows: My impression: no acute abnormality Discharge Plan Discharge Patient Disposition: Home, Self-Care Clinical Impression: ESRD (end stage renal disease) on dialysis, Hypoxia Condition: Stable Prescriptions: No Action betamethasone dipropionate 0.05 % cream TOPICAL RF: 0 clindamycin phosphate 2 % cream VAGINAL RF: 0 hydrocodone-acetaminophen 10-325 mg tablet 1 tab PO QID PRN (Reason: Pain) 30 Days Qty: 120 RF: 0 clonidine HCl 0.1 mg tablet 0.1 mg PO Q6H PRN (Reason: Blood Pressure) RF: 0 labetalol 200 mg tablet 400 mg PO TID RF: 0 amlodipine 10 mg Tablet 10 mg PO BID RF: 0 diazepam 5 mg tablet 5 mg PO BID PRN (Reason: Anxiety) RF: 0 Entocort EC 3 mg Capsule,Delayed,Extend.Release 3 mg PO DAILY RF: 0 Renvela 800 mg Tablet 800 mg PO TID RF: 0 acetaminophen 325 mg Tablet 650 mg PO Q6H PRN (Reason: Mild/Mod Pain Or Temp >/= 101) Qty: 0 RF: 0 Advair HFA 115-21 mcg/actuation HFA aerosol inhaler 2 inh INHALATION BID Qty: 12 RF: 0 hydralazine 10 mg Tablet 10 mg PO TID 30 Days Qty: 90 RF: 0 Discharge Orders: Discharge Order (Routine); Ordered 03/14/19 Ordered By: Alvaro Willis Referrals: Erwin Layne MD [Primary Care Provider] - 4-7 days Discharge Diet: Advance as tolerated Discharge Activity: Resume usual activity Patient Instructions: Dyspnea (ED) Discharge Date/Time: 03/14/19 22:45 Coding Level of Care Code ED Flexographic Press Plate Setter for Chg Fwd The documentation recorded by the Wilmer ruiz Valerie R, accurately reflects the service I personally performed and the decisions made by Lazaro martinez Korby, MD Mar 14, 2019 16:56
[2019-03-14 22:27] VITALS: BP 190/73; PULSE 94; RESP 16; O2SAT 94
[2019-03-14 22:51] VITALS: BP 198/71; PULSE 68; RESP 33; O2SAT 92
== END 2019-03-14 22:45 | disposition home or self-care (01) ==
PROVIDERS: Emergency Provider Emergency Medicine; Family Provider Family Medicine; PCP Family Medicine
DX: N18.6 End stage renal disease (principal); Z99.2 Dependence on renal dialysis; R09.02 Hypoxemia
CPT/HCPCS: 36415; 71045; 80053; 83880; 85025; 93005; 99282; 99283

== ENCOUNTER 2019-04-28 13:47 | Outpatient (CLI) | payer MEDICARE, OTHER, SELFPAY ==
[2019-04-28 14:15] VITALS: BP 136/66; PULSE 69; RESP 18; TEMP 36.7; O2SAT 93
[2019-04-28] MEDS: denosumab 60 mg SDV SUBCUT (14:49)
== END 2019-04-28 13:48 | disposition home or self-care (01) ==
LOC: RHEOACUTE 13:48
PROVIDERS: Family Provider Family Medicine; PCP Family Medicine; Visit Provider Internal Medicine Rheumatology
DX: M05.79 Rheumatoid arthritis with rheumatoid factor of multiple sites without organ or systems involvement (principal); N18.6 End stage renal disease; Z99.2 Dependence on renal dialysis; D63.1 Anemia in chronic kidney disease; M81.0 Age-related osteoporosis without current pathological fracture
CPT/HCPCS: 96372; G0463; J0897

== ENCOUNTER → 2019-05-09 11:05 | Outpatient (BNVA) | payer MEDICARE, OTHER, SELFPAY | PROVIDERS: Family Provider Family Medicine; PCP Family Medicine; Referring Provider Family Medicine; Visit Provider Anesthesiology Pain Medicine | DX: M05.79 Rheumatoid arthritis with rheumatoid factor of multiple sites without organ or systems involvement (principal); M54.2 Cervicalgia; M54.9 Dorsalgia, unspecified; M81.0 Age-related osteoporosis without current pathological fracture; I15.0 Renovascular hypertension; D89.9 Disorder involving the immune mechanism, unspecified; Z79.891 Long term (current) use of opiate analgesic | CPT/HCPCS: 99204 ==

== ENCOUNTER 2019-05-16 14:59 | Outpatient (CLI) | payer MEDICARE, OTHER, SELFPAY ==
--- NOTE | 2019-05-16 15:58 | XR_ITS ---
WS: [id number] RIGHT FOOT: 3 VIEW(S) TECHNIQUE: PA, oblique and lateral. HISTORY: Rheumatoid Arthritis COMPARISON: None available. Diffuse osteopenia. No acute fractures. There is extensive loss of joint space and cartilage throughout the bones of the ankle and foot. Pes planus. Fusion across the tibiotalar joint and also at the talo- calcaneal joint space. Small calcane al spur. Narrowing and loss of cartilage involving all the joint spaces throughout the foot. Penciling of the distal fifth metatarsal. Erosions involving all the metatarsal heads. Peripheral vascular calcifications. XR/XR foot RT min 3V* [id number] IMPRESSION: 1. Severe changes of rheumatoid arthritis involving the bones of the ankle and foot. 2. Ankylosis at the tibiotalar and talocalcaneal joint spaces. 3. Pes planus. 4. Peripheral arterial calcifications.
--- NOTE | 2019-05-16 15:58 | XR_ITS ---
WS: [id number] LEFT HAND: 3 VIEW(S) TECHNIQUE: PA, oblique and lateral. HISTORY: Rheumatoid Arthritis COMPARISON: None available. Severe diffuse osteopenia at the wrist and hand. Wire and pin fixation across the second, third and f ourth PIP joints. Hardware is intact. There is complete destruction of the radiocarpal, ulnocarpal, carpal and carpometacarpal joint spaces . Complete loss of cartilage with erosions. Penciling of the distal ulna. There is subluxation and ov erlapping of the carpal bones which individually are very difficult to see. Extensive erosive changes and joint replacement involving the second through fifth metacarpophalangea l joints. There is subluxation and displacement of the proximal first phalanx with deformity. Erosive changes with penciling involving the proximal and mid fifth phalanges. Destruction of the PIP joint. XR/XR hand LT min 3V* [id number] IMPRESSION: 1. Severe changes of rheumatoid arthritis involving the wrist and hand. 2. Pin and wire fixation across the second, third and fourth proximal metacarp al phalangeal joints. 3. Severe osteopenia.
--- NOTE | 2019-05-16 15:58 | XR_ITS ---
WS: [id number] LEFT FOOT: 3 VIEW(S) TECHNIQUE: PA, oblique and lateral. HISTORY: Rheumatoid Arthritis COMPARISON: None available. No acute fractures are identified. Severe osteopenia. Significant loss of joint spaces and loss of ca rtilage of the bones of the ankle and foot. Suspect fusion at the tibiotalar joint space. Moderate si ze calcaneal spur. Calcific depositions within the soft tissues of the lower extremity. Loss of cartilage throughout the bones of the foot. Lateral subluxation of the second, third and four th phalanges. Dislocation involving the fifth metatarsophalangeal joint. Erosions at the metatarsal h joel. Vascular calcifications. XR/XR foot LT min 3V* [id number] IMPRESSION: 1. Severe changes of rheumatoid arthritis of the LEFT foot. 2. Suspect at least partial if not complete fusion at the tibiotalar joint spa ce. 3. Osteopenia and peripheral arterial calcifications.
--- NOTE | 2019-05-16 15:58 | XR_ITS ---
WS: [id number] RIGHT HAND: 3 VIEW(S) TECHNIQUE: PA, oblique and lateral. HISTORY: Rheumatoid Arthritis COMPARISON: None available. Severe osteopenia. Severe subluxations with erosions involving the first through fifth metacarpal pha langeal joint spaces. Loss of joint space throughout the remaining joints of the hand. Severe loss of joint space at the radiocarpal and radioulnar joint and intercarpal joints. Suspect fusion and overl apping carpal bones. Peripheral arterial calcifications. XR/XR hand RT min 3V* [id number] IMPRESSION: Severe changes of rheumatoid arthritis.
== END 2019-05-16 15:00 | disposition home or self-care (01) ==
LOC: RADWPI 15:02
PROVIDERS: Family Provider Family Medicine; PCP Family Medicine; Visit Provider Internal Medicine Rheumatology
DX: M06.9 Rheumatoid arthritis, unspecified (principal); M06.842 Other specified rheumatoid arthritis, left hand; M06.872 Other specified rheumatoid arthritis, left ankle and foot; M06.841 Other specified rheumatoid arthritis, right hand; M06.871 Other specified rheumatoid arthritis, right ankle and foot; M21.41 Flat foot [pes planus] (acquired), right foot; M24.674 Ankylosis, right foot; M85.842 Other specified disorders of bone density and structure, left hand
CPT/HCPCS: 73130; 73630

== ENCOUNTER → 2019-07-08 09:37 | Outpatient (BNVA) | payer MEDICARE, OTHER, SELFPAY | PROVIDERS: Family Provider Family Medicine; PCP Family Medicine; Visit Provider Anesthesiology Pain Medicine | DX: M54.41 Lumbago with sciatica, right side (principal); M54.9 Dorsalgia, unspecified; M54.2 Cervicalgia; T84.7XXA Infection and inflammatory reaction due to other internal orthopedic prosthetic devices, implants and grafts, initial encounter; X58.XXXA Exposure to other specified factors, initial encounter; M81.0 Age-related osteoporosis without current pathological fracture; I15.0 Renovascular hypertension; D89.9 Disorder involving the immune mechanism, unspecified; M05.79 Rheumatoid arthritis with rheumatoid factor of multiple sites without organ or systems involvement; Z79.891 Long term (current) use of opiate analgesic; L98.499 Non-pressure chronic ulcer of skin of other sites with unspecified severity | CPT/HCPCS: 73130; 99214 ==

== ENCOUNTER 2019-07-08 15:48 | Outpatient (CLI) | payer MEDICARE, OTHER, SELFPAY ==
--- NOTE | 2019-07-08 15:57 | XR_ITS ---
WS: [id number] HAND LEFT TECHNIQUE: 3 views of the left hand CLINICAL INFORMATION: infection COMPARISON: May 16, 2019, FINDINGS: Soft tissue ulceration clinically reported along the fourth proximal phalanx laterally. Antonio dware wires are visualized in this area and likely result in the skin ulceration. Hardware appears in tact and stable since May 16, 2019. Osteopenia. Advanced changes of rheumatoid arthritis. Wire pin fixation across the second third and f ourth PIP joints. Hardware appears unchanged from previous. Chronic erosion of the radiocarpal and ul nocarpal joints. Chronic erosion of the intercarpal spaces and carpal metacarpal joint. Complete loss of the intervening cartilage. Pencil in cup deformity distal ulna. Stable extensive erosive changes involving the MCP joints. Stabl e subluxation with lateral displacement of the proximal first phalanx. Chronic unchanged erosion of t he fifth PIP with chronic fracture subluxation. Lateral displacement of the distal fragment. XR/XR hand LT min 3V* [id number] IMPRESSION: 1. Fixation hardware bridging the second third and fourth PIP joints appears u nchanged. 2. Reported soft tissue Ulceration along the fourth lateral proximal phalanx a djacent to the hardware wires. Ulceration presumably related to the protruding hardware wires in this area. 3. No evidence of acute osteomyelitis 4. Advanced osteopenia with chronic advanced erosive changes of rheumatoid art hritis similar to May 16, 2019
== END 2019-07-08 15:49 | disposition home or self-care (01) ==
PROVIDERS: Family Provider Family Medicine; PCP Family Medicine; Visit Provider Anesthesiology Pain Medicine
DX: T84.7XXA Infection and inflammatory reaction due to other internal orthopedic prosthetic devices, implants and grafts, initial encounter (principal); L98.499 Non-pressure chronic ulcer of skin of other sites with unspecified severity
CPT/HCPCS: 73130

== ENCOUNTER → 2019-08-05 10:56 | Outpatient (BNVA) | payer MEDICARE, OTHER, SELFPAY | PROVIDERS: Family Provider Family Medicine; PCP Family Medicine; Visit Provider Anesthesiology Pain Medicine | DX: M05.79 Rheumatoid arthritis with rheumatoid factor of multiple sites without organ or systems involvement (principal); M54.9 Dorsalgia, unspecified; M54.2 Cervicalgia; M81.0 Age-related osteoporosis without current pathological fracture; D89.9 Disorder involving the immune mechanism, unspecified; I15.0 Renovascular hypertension; T84.7XXA Infection and inflammatory reaction due to other internal orthopedic prosthetic devices, implants and grafts, initial encounter; X58.XXXA Exposure to other specified factors, initial encounter | CPT/HCPCS: 99213; 99214 ==

== ENCOUNTER → 2019-08-11 14:10 | Outpatient (BNVA) | payer MEDICARE, OTHER, SELFPAY | PROVIDERS: Family Provider Family Medicine; PCP Family Medicine; Visit Provider Internal Medicine Rheumatology | DX: M05.79 Rheumatoid arthritis with rheumatoid factor of multiple sites without organ or systems involvement (principal); Z79.899 Other long term (current) drug therapy; M81.0 Age-related osteoporosis without current pathological fracture; N18.6 End stage renal disease; Z99.2 Dependence on renal dialysis | CPT/HCPCS: 99214 ==

== ENCOUNTER → 2019-09-02 11:05 | Outpatient (BNVA) | payer MEDICARE, OTHER, SELFPAY | PROVIDERS: Family Provider Family Medicine; PCP Family Medicine; Visit Provider Anesthesiology Pain Medicine | DX: M54.41 Lumbago with sciatica, right side (principal); M54.9 Dorsalgia, unspecified; M05.79 Rheumatoid arthritis with rheumatoid factor of multiple sites without organ or systems involvement; M81.0 Age-related osteoporosis without current pathological fracture; M54.2 Cervicalgia; I15.0 Renovascular hypertension; D89.9 Disorder involving the immune mechanism, unspecified; T84.7XXA Infection and inflammatory reaction due to other internal orthopedic prosthetic devices, implants and grafts, initial encounter; X58.XXXA Exposure to other specified factors, initial encounter; Z79.891 Long term (current) use of opiate analgesic | CPT/HCPCS: 99213; 99214 ==

== ENCOUNTER 2019-10-31 11:21 | Outpatient (CLI) | payer MEDICARE, OTHER, SELFPAY ==
[2019-10-31 11:23] VITALS: BP 184/78; PULSE 67; RESP 16; TEMP 36.4; O2SAT 94
[2019-10-31] MEDS: denosumab 60 mg SDV SUBCUT (11:25)
[2019-10-31 12:00] VITALS: BP 165/79; PULSE 62; RESP 16; TEMP 36.4; O2SAT 96
== END 2019-10-31 11:22 | disposition home or self-care (01) ==
LOC: RHEOACUTE 11:22
PROVIDERS: Family Provider Family Medicine; PCP Family Medicine; Visit Provider Internal Medicine Rheumatology
DX: M81.0 Age-related osteoporosis without current pathological fracture (principal)
CPT/HCPCS: 96372; J0897

== ENCOUNTER → 2019-11-09 10:47 | Outpatient (BNVA) | payer MEDICARE, OTHER, SELFPAY | PROVIDERS: Family Provider Family Medicine; PCP Family Medicine; Visit Provider Anesthesiology Pain Medicine | DX: M54.41 Lumbago with sciatica, right side (principal); M54.9 Dorsalgia, unspecified; M54.2 Cervicalgia; M05.79 Rheumatoid arthritis with rheumatoid factor of multiple sites without organ or systems involvement; M81.0 Age-related osteoporosis without current pathological fracture; I15.0 Renovascular hypertension; D89.9 Disorder involving the immune mechanism, unspecified; T84.7XXA Infection and inflammatory reaction due to other internal orthopedic prosthetic devices, implants and grafts, initial encounter; X58.XXXA Exposure to other specified factors, initial encounter; Z79.891 Long term (current) use of opiate analgesic | CPT/HCPCS: 99213 ==

== ENCOUNTER → 2019-11-24 14:01 | Outpatient (BNVA) | payer MEDICARE, OTHER, SELFPAY | PROVIDERS: Family Provider Family Medicine; PCP Family Medicine; Visit Provider Internal Medicine Rheumatology | DX: M05.79 Rheumatoid arthritis with rheumatoid factor of multiple sites without organ or systems involvement (principal); M81.0 Age-related osteoporosis without current pathological fracture; N18.6 End stage renal disease; Z99.2 Dependence on renal dialysis; Z79.899 Other long term (current) drug therapy | CPT/HCPCS: 99214 ==

== ENCOUNTER → 2020-01-11 09:15 | Outpatient (BNVA) | payer MEDICARE, OTHER, SELFPAY | PROVIDERS: Family Provider Family Medicine; PCP Family Medicine; Visit Provider Anesthesiology Pain Medicine | DX: M54.9 Dorsalgia, unspecified (principal); M54.2 Cervicalgia; M79.18 Myalgia, other site; M05.79 Rheumatoid arthritis with rheumatoid factor of multiple sites without organ or systems involvement; M81.0 Age-related osteoporosis without current pathological fracture; I15.0 Renovascular hypertension; D89.9 Disorder involving the immune mechanism, unspecified; T84.7XXA Infection and inflammatory reaction due to other internal orthopedic prosthetic devices, implants and grafts, initial encounter; X58.XXXA Exposure to other specified factors, initial encounter; Z79.891 Long term (current) use of opiate analgesic | CPT/HCPCS: 20553; 99213; J1030; J3490 ==

== ENCOUNTER → 2020-03-09 11:11 | Outpatient (BNVA) | payer MEDICARE, OTHER, SELFPAY | PROVIDERS: Family Provider Family Medicine; PCP Family Medicine; Visit Provider Anesthesiology Pain Medicine | DX: M54.9 Dorsalgia, unspecified (principal); M54.2 Cervicalgia; M05.79 Rheumatoid arthritis with rheumatoid factor of multiple sites without organ or systems involvement; M81.0 Age-related osteoporosis without current pathological fracture; I15.0 Renovascular hypertension; D89.9 Disorder involving the immune mechanism, unspecified; T84.7XXA Infection and inflammatory reaction due to other internal orthopedic prosthetic devices, implants and grafts, initial encounter; X58.XXXA Exposure to other specified factors, initial encounter; Z79.899 Other long term (current) drug therapy; Z79.891 Long term (current) use of opiate analgesic | CPT/HCPCS: 99214 ==

== ENCOUNTER 2020-04-04 11:08 | Outpatient (CLI) | payer MEDICARE, OTHER, SELFPAY ==
[2020-04-04] MEDS: denosumab 60 mg SDV SUBCUT (11:40)
== END 2020-04-04 11:09 | disposition home or self-care (01) ==
LOC: ONCMED 11:12
PROVIDERS: Family Provider Family Medicine; PCP Family Medicine; Visit Provider Internal Medicine
DX: M05.79 Rheumatoid arthritis with rheumatoid factor of multiple sites without organ or systems involvement (principal)
CPT/HCPCS: 96372; J0897

== ENCOUNTER → 2020-05-02 10:59 | Outpatient (BNVA) | payer MEDICARE, OTHER, SELFPAY | PROVIDERS: Family Provider Family Medicine; PCP Family Medicine; Visit Provider Anesthesiology Pain Medicine | DX: M05.9 Rheumatoid arthritis with rheumatoid factor, unspecified (principal); M54.9 Dorsalgia, unspecified; M54.2 Cervicalgia; M05.79 Rheumatoid arthritis with rheumatoid factor of multiple sites without organ or systems involvement; M81.0 Age-related osteoporosis without current pathological fracture; I15.0 Renovascular hypertension; D89.9 Disorder involving the immune mechanism, unspecified; T84.7XXA Infection and inflammatory reaction due to other internal orthopedic prosthetic devices, implants and grafts, initial encounter; X58.XXXA Exposure to other specified factors, initial encounter; Z79.891 Long term (current) use of opiate analgesic | CPT/HCPCS: 99214 ==

== ENCOUNTER → 2020-07-04 11:03 | Outpatient (BNVA) | payer MEDICARE, OTHER, SELFPAY | PROVIDERS: Family Provider Family Medicine; PCP Family Medicine; Visit Provider Anesthesiology Pain Medicine | DX: M54.9 Dorsalgia, unspecified (principal); M05.79 Rheumatoid arthritis with rheumatoid factor of multiple sites without organ or systems involvement; M81.0 Age-related osteoporosis without current pathological fracture; M54.2 Cervicalgia; I15.0 Renovascular hypertension; D89.9 Disorder involving the immune mechanism, unspecified; T84.7XXA Infection and inflammatory reaction due to other internal orthopedic prosthetic devices, implants and grafts, initial encounter; X58.XXXA Exposure to other specified factors, initial encounter; Z79.899 Other long term (current) drug therapy; Z79.891 Long term (current) use of opiate analgesic | CPT/HCPCS: 99214 ==

== ENCOUNTER → 2020-08-27 11:08 | Outpatient (BNVA) | payer MEDICARE, OTHER, SELFPAY | PROVIDERS: Family Provider Family Medicine; PCP Family Medicine; Visit Provider Anesthesiology Pain Medicine | DX: M54.9 Dorsalgia, unspecified (principal); M54.2 Cervicalgia; M05.79 Rheumatoid arthritis with rheumatoid factor of multiple sites without organ or systems involvement; M81.0 Age-related osteoporosis without current pathological fracture; I15.0 Renovascular hypertension; D89.9 Disorder involving the immune mechanism, unspecified; T84.7XXA Infection and inflammatory reaction due to other internal orthopedic prosthetic devices, implants and grafts, initial encounter; X58.XXXA Exposure to other specified factors, initial encounter; M79.604 Pain in right leg; Z79.891 Long term (current) use of opiate analgesic | CPT/HCPCS: 99214 ==

== ENCOUNTER 2020-10-03 11:16 | Outpatient (CLI) | payer MEDICARE, OTHER, SELFPAY ==
[2020-10-03 11:31] VITALS: BP 140/80; PULSE 90; RESP 18; TEMP 36.7; O2SAT 96
[2020-10-03] MEDS: denosumab 60 mg SDV SUBCUT (11:55)
== END 2020-10-03 11:17 | disposition home or self-care (01) ==
LOC: ONCMED 11:20
PROVIDERS: PCP Family Medicine; Visit Provider Internal Medicine Rheumatology
DX: M05.79 Rheumatoid arthritis with rheumatoid factor of multiple sites without organ or systems involvement (principal); Z79.899 Other long term (current) drug therapy; M81.0 Age-related osteoporosis without current pathological fracture
CPT/HCPCS: 96372; 99213; J0897

== ENCOUNTER → 2020-10-24 11:26 | Outpatient (BNVA) | payer MEDICARE, OTHER, SELFPAY | PROVIDERS: PCP Family Medicine; Visit Provider Anesthesiology Pain Medicine | DX: M54.2 Cervicalgia (principal); M54.9 Dorsalgia, unspecified; M05.79 Rheumatoid arthritis with rheumatoid factor of multiple sites without organ or systems involvement; M81.0 Age-related osteoporosis without current pathological fracture; I15.0 Renovascular hypertension; D89.9 Disorder involving the immune mechanism, unspecified; T84.7XXA Infection and inflammatory reaction due to other internal orthopedic prosthetic devices, implants and grafts, initial encounter; Z79.891 Long term (current) use of opiate analgesic | CPT/HCPCS: 99214 ==

== ENCOUNTER → 2020-12-26 11:28 | Outpatient (BNVA) | payer MEDICARE, OTHER, SELFPAY | PROVIDERS: PCP Family Medicine; Visit Provider Anesthesiology Pain Medicine | DX: M54.9 Dorsalgia, unspecified (principal); M54.2 Cervicalgia; M05.79 Rheumatoid arthritis with rheumatoid factor of multiple sites without organ or systems involvement; M81.0 Age-related osteoporosis without current pathological fracture; D89.9 Disorder involving the immune mechanism, unspecified; T84.7XXA Infection and inflammatory reaction due to other internal orthopedic prosthetic devices, implants and grafts, initial encounter; X58.XXXA Exposure to other specified factors, initial encounter; Z79.891 Long term (current) use of opiate analgesic | CPT/HCPCS: 99214 ==

== ENCOUNTER 2021-01-27 14:38 | Observation (INO) | payer MEDICARE, OTHER, SELFPAY ==
[2021-01-27 14:54] VITALS: BP 181/89; PULSE 82; RESP 24; TEMP 36.8; O2SAT 100; BMI 25.2
--- NOTE | 2021-01-27 15:06 | XRR_ITS ---
PROCEDURE INFORMATION: Exam: XR Chest Exam date and time: 01/27/2021 3:06 PM Age: 70 years old Clinical indication: Shortness of breath; Additional info: Chest pain TECHNIQUE: Imaging protocol: XR of the chest. Views: 1 view. COMPARISON: CR XR chest 1V portable [id number] 03/14/2019 7:45 PM FINDINGS: Lungs: Several calcified granulomas are present in the right lung. Left basilar opacity may be atelectasis or pneumonia. Pleural spaces: A small left pleural effusion is appreciated. No pneumothorax. Heart/Mediastinum: Unremarkable. No cardiomegaly. Bones/joints: Moderate to severe degenerative changes are present in the left shoulder. Small sclerotic foci seen in the proximal right humerus, which are new since the prior exam and may be chronic infarctions. Other findings: Several surgical clips are seen in the visualized medial right arm. XR/XR chest 1V portable [id number] IMPRESSION: 1. Left basilar atelectasis versus pneumonia and small left pleural effusion. 2. New sclerotic foci in the proximal right humerus, which may be infarctions
--- NOTE | 2021-01-27 15:26 | ECG_ITS ---
[facility] Test Date: 2021-01-27 Pat Name: Lady Woodward Department: Room: Gender: Female Delivery Agent: : [id number] Requested By: Karsten Jackman Order Number: [id number] Reading MD: DAVIS MARX Measurements Intervals [place] Rate: 80 P: 28 [place]: 191 QRS: -26 QRSD: 102 T: 4 QT: 408 QTc: 471 Interpretive Statements SINUS RHYTHM POSSIBLE LEFT ATRIAL ENLARGEMENT [-0.1mV P-WAVE IN V1/V2] BORDERLINE LEFT AXIS DEVIATION [QRS AXIS < -20] POSSIBLE LEFT VENTRICULAR HYPERTROPHY [VOLTAGE CRITERIA PLUS LAE OR QRS WIDENING] Compared to ECG 03/14/2019 19:51:41 T-wave abnormality no longer present Electronically Signed On 01-27-2021 19:58:09 MANAGER GENERAL by DAVIS MARX [id number]
[2021-01-27 15:50] VITALS: BP 181/89; PULSE 85; RESP 18; O2SAT 95
--- NOTE | 2021-01-27 15:54 | PC.NURSE ---
PATIENT URINALYSIS CANCELLED DUE TO DIALYSIS AND NOT PRODUCING URINE.
[2021-01-27 16:01] LABS: Basophils # 0.1 10^3/uL (0.0-0.1); Basophils % 0.7 %; Eosinophils # 0.1 10^3/uL (0.0-0.8); Eosinophils % 1.4 %; Hematocrit 28.2 % (37.0-47.0); Hemoglobin 8.9 g/dL (11.5-15.3); Lymphocytes # 0.9 10^3/uL (0.8-4.8); Lymphocytes % 9.1 %; Mean Corpuscular HGB Conc 31.6 g/dL (30.0-36.0); Mean Corpuscular Hemoglobin 30.7 pg (28.0-34.0); Mean Corpuscular Volume 97.2 fl (81-99); Mean Platelet Volume 10.4 fL (7.4-10.4); Monocytes # 1.2 10^3/uL (0.2-0.9); Monocytes % 11.3 %; Neutrophils % 77.2 %; Nucleated Red Blood Cells % 0 %; Platelet Count 293 10^3/cmm (130-400); White Blood Count 10.2 10^3/uL (4.0-10.0)
[2021-01-27 16:29] LABS: Alanine Aminotransferase 29 U/L (0-33); Albumin Level 3.8 g/dL (3.5-5.2); Alkaline Phosphatase 140 IU/L (35-105); Anion Gap 22.2 (5-19); Aspartate Amino Transferase 44 U/L (0-32); Blood Urea Nitrogen 50 mg/dL (8-23); Carbon Dioxide 25 mmol/L (22-29); Chloride 98 mmol/L (98-107); Globulin 3.3 g/dL (1.3-4.6); Glomerular Filtration Rate 6.6 mL/min (90-130); Glucose 96 mg/dL (65-115); Osmolality Calculated 305 mOsm/kg (285-295); Potassium 4.2 mmol/L (3.5-5.1); Sodium 141 mmol/L (136-145); Total Bilirubin 0.2 mg/dL (0.15-1.2); Total Protein 7.1 g/dL (6.6-8.7)
--- NOTE | 2021-01-27 16:41 | ED_ITS ---
HPI - General Adult General: Chief complaint: General Medical Stated complaint: TROUBLE BREATHING/HIGH BP Time Seen by Provider: 01/27/21 15:21 History of Present Illness: HPI narrative: Patient is a 70-year-old female with a history of dialysis Thursday, chronic back fractures presenting to the emergency room with acute onset shortness of breath upon waking up this morning. Patient tells her that she was not feeling well and feeling short of breath. Patient was then found to have a O2 sat of 78% at home. Patient used a portable oxygen for the patient to help her breathe prior to calling EMS. On arrival, patient reports shortness of breath and generalized weakness x2 days. Patient underwent dialysis on Thursday and has had a 2 kg weight loss since then. Patient has not had any fever/chills, cough, abdominal complaints with nausea/vomiting. Patient currently is on abysmal and reports dark stool for the last 2 weeks. Denies any active hematochezia. Patient at baseline does not use home oxygen is not on home CPAP or BiPAP. Onset: this AM Duration: 5 hrs Location:home Severity:moderate Review of Systems Narrative: Constitutional: No fever, no chills. HEENT: No vision changes CV: No chest pain, no palpitations PULM: no cough, +dyspnea. GI: No abdominal pain, no N/V/D. : No dysuria MSKEL: No muscle pain SKIN: No new rashes, no lesions. NEURO: No headache, no focal weakness. 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 Some wire extrusion 4th digit associated with recurrent infection. History of right hip replacement History of total bilateral knee replacement Family History Father Rheumatoid arthritis Denies family history of Systemic lupus erythematosus, unspecified Diabetes Cancer Social History Alcohol intake: never Current occupational status: retired History of recent travel: No Current gender identity: Female Physical Exam Narrative: EXAM NARRATIVE: Head: Atraumatic Eyes: PERRL, conjunctiva without injection ENT: Mucous membrane moist NECK: Supple, ROM intact LUNGS: +coarse breath sounds /bl CV: RRR ABDOMEN: Soft, nontender in all quadrants EXTREMITY: Normal ROM, +R arm fistula palpable thrill, 1+ edema in the lower extremities SKIN: No rash or erythema NEURO: Awake and alert, no focal motor deficits PSYCH: Normal mood and affect Course Vital Signs: Vital signs: Vital Signs Temperature 98.3 F 01/27/21 14:54 Pulse Rate 85 01/27/21 15:50 Respiratory Rate 18 01/27/21 15:50 Blood Pressure 181/89 01/27/21 15:50 Pulse Oximetry 95 01/27/21 15:50 MDM - General Adult MDM Narrative: Medical decision making narrative: 70-year-old female with history dialysis Thursday, presenting to emergency with also dyspnea since morning. On arrival, patient is noted to be satting 89% on room air. Patient says that she normally sats greater than 95%. X-rays consistent with possible left bibasilar atelectasis versus pneumonia with possible left pleural effusion. Patient has white count 10.2 which is above her baseline. Hemoglobin 8.9 consistent with baseline. Patient is status post vancomycin and cefepime for coverage of HCAP. Disposition: admission for oxygen and ABx Lab Data: Labs: Lab Results 01/27/21 01/27/21 15:56 15:56 WBC 10.2 10^3/uL H 10 ^3/uL (4.0-10.0) RBC 2.90 10^6/uL L 10 ^6/uL (4.1-5.3) Hgb 8.9 g/dL L g/dL (11.5-15.3) Hct 28.2 % L % (37.0-47.0) MCV 97.2 fl fl (81-99) MCH 30.7 pg pg (28.0-34.0) MCHC 31.6 g/dL g/dL (30.0-36.0) RDW 16.0 % H % (12.1-15.1) Plt Count 293 10^3/cmm 10^3 /cmm (130-400) MPV 10.4 fL fL (7.4-10.4) Neut % (Auto) 77.2 % % Lymph % (Auto) 9.1 % % [place] % (Auto) 11.3 % % Eos % (Auto) 1.4 % % Baso % (Auto) 0.7 % % Neut # (Auto) 7.90 10^3/uL H 10 ^3/uL (1.8-7.7) Lymph # (Auto) 0.9 10^3/uL 10^3/ uL (0.8-4.8) [place] # (Auto) 1.2 10^3/uL H 10^ 3/uL (0.2-0.9) Eos # (Auto) 0.1 10^3/uL 10^3/ uL (0.0-0.8) Baso # (Auto) 0.1 10^3/uL 10^3/ uL (0.0-0.1) Nucleated RBC % (a uto) 0 % % Nucleated RBCs # 0.0 /100WBC /100W BC Sodium 141 mmol/L mmol/L (136-145) Potassium 4.2 mmol/L mmol/L (3.5-5.1) Chloride 98 mmol/L mmol/L (98-107) Carbon Dioxide 25 mmol/L mmol/L (22-29) Anion Gap 22.2 H (5-19) BUN 50 mg/dL H mg/dL (8-23) Creatinine 6.3 mg/dL H* mg/d L (0.5-0.9) GFR Calculation 6.6 mL/min L mL/m in (90-130) Glucose 96 mg/dL mg/dL (65-115) Calculated Osmolal ity 305 mOsm/kg H mOs m/kg (285-295) Calcium 9.0 mg/dL mg/dL (8.5-10.5) Total Bilirubin 0.2 mg/dL mg/dL (0.15-1.2) AST 44 U/L H U/L (0-32) ALT 29 U/L U/L (0-33) Alkaline Phosphata se 140 IU/L H IU/L (35-105) Total Protein 7.1 g/dL g/dL (6.6-8.7) Albumin 3.8 g/dL g/dL (3.5-5.2) Globulin 3.3 g/dL g/dL (1.3-4.6) Imaging Data^: Other Imaging: Radiologist's impression: [address] [id number] ReportSigned Patient: Lady Woodward #: [id number]: 1Acct#:[id number]/Sex: 70 / FADM Date: 01/27/21Loc: ERRoo/Bed:Attending Dr: Ordering Provider/Ordering MD: Savita Adam Date of Service: 01/27/21 Procedure(s): XR chest 1V portable [id number] Accession Number(s): [id number] Report Number: [id number] PROCEDURE INFORMATION: Exam: XR Chest Exam date and time: 01/27/2021 3:06 PM Age: 70 years old Clinical indication: Shortness of breath; Additional info: Chest pain TECHNIQUE: Imaging protocol: XR of the chest. Views: 1 view. COMPARISON: CR XR chest 1V portable [id number] 03/14/2019 7:45 PM FINDINGS: Lungs: Several calcified granulomas are present in the right lung. Left basilar opacity may be atelectasis or pneumonia. Pleural spaces: A small left pleural effusion is appreciated. No pneumothorax. Heart/Mediastinum: Unremarkable. No cardiomegaly. Bones/joints: Moderate to severe degenerative changes are present in the left shoulder. Small sclerotic foci seen in the proximal right humerus, which are new since the prior exam and may be chronic infarctions. Other findings: Several surgical clips are seen in the visualized medial right arm. XR/XR chest 1V portable [id number] IMPRESSION: 1. Left basilar atelectasis versus pneumonia and small left pleural effusion. 2. New sclerotic foci in the proximal right humerus, which may be infarctions Dictated By:Дмитрий Mota MDSigned By:Дмитрий Mota MDSigned Date/Time:01/27/21 [id number]/ [id number] Discharge Plan Discharge Patient Disposition: Admitted As Inpatient Clinical Impression: Acute dyspnea, Hypoxemia Condition: Stable Coding Level of Care Code ED Laser Engineer for Chin Porter
[2021-01-27] MEDS: cefepime 1,000 MG in sodium chloride 0.9% (plus) 50 ML 100 MG IV (16:51)
[2021-01-27 17:06] LABS: NT Pro B Type Natriuretic Pept 50904 pg/mL (0-125)
[2021-01-27] MEDS: vancomycin 1,000 MG in sodium chloride 0.9% 250 ML 250 MG IV (17:27)
--- NOTE | 2021-01-27 17:39 | PM.HP ---
Providers/Chief Complaint Primary Care Provider: Erwin Layne MD Chief Complaint: TROUBLE BREATHING/HIGH BP History of Present Illness Lady Woodward is a 70 year old female with end-stage renal disease Thursday regimen, rheumatoid arthritis, no compromise, chronic anemia, presented today for worsening shortness of breath. Patient is stating that she got dialyzed on Thursday, this time only 2 points were removed normally she notices more than 2 pounds of weight change after her dialysis. On Thursday morning she started experiencing orthopnea and PND, she woke up feeling short of breath, no fever, chest pain she has chronic diarrhea, she did not notice any fever. She is vaccinated for COVID-19. At home she does not use any oxygen. Because of worsening shortness of breath she was brought to the ER for further evaluation. In the ER she was diagnosed with mild leukocytosis, chronic anemia, she was requiring 3 L of oxygen at the time of initial evaluation however when I saw her she was on 1.5 L Hypertensive, awake and alert, patient is stating that she has chronic pursed lip breathing I have requested CT chest to better delineate lung parenchyma, there is concern for developing pneumonia in left lower lobe, she was given vancomycin and cefepime regimen in the ER Review of Systems Const: Reports: chills and fatigue Eyes: Denies: change in vision ENMT: Denies: throat pain Card: Denies: chest pain Resp: Reports: dyspnea and non-productive cough GI: Reports: other (Chronic diarrhea for microscopic colitis, ); Denies: abdominal pain : Denies: flank pain Musc: Denies: neck pain Skin/Breast: Reports: lesions Neuro: Denies: headache(s) Psych: Reports: anxiety Endo: Denies: polyuria Ben/Lymph: Denies: easy bruising All/Imm: Denies: urticaria Medications/Allergies Home Medications Medication Instructions Recorded Confirmed Last Taken Type clonidine HCl 0.1 mg PO Q6H PRN 02/18/19 01/27/21 Unknown History diazepam 5 mg PO BID PRN 02/18/19 01/27/21 02/17/19 History labetalol 400 mg PO TID PRN MDD see pharmacy 02/18/19 01/27/21 02/17/19 History comment fluticasone propion-salmeterol 2 inh INHALATION BID #12 gm 02/24/19 01/27/21 Unknown Rx [Advair HFA] sevelamer carbonate 800 mg tablet 800 mg PO TID 06/06/19 01/27/21 01/27/21 History denosumab 60 mg/mL subcutaneous 60 mg SUBCUT .[id number] ml 11/24/19 01/27/21 Unknown History syringe clobetasol 0.05 % topical cream 1 applic TOPICAL BID 14 Days #60 g 07/18/20 01/27/21 Unknown Rx mupirocin 2 % topical ointment 1 applic TOPICAL BID #22 g 07/18/20 01/27/21 Unknown Rx triamcinolone acetonide 0.1 % 1 applic TOPICAL BID #453.6 g 07/18/20 01/27/21 Unknown Rx topical cream hydrocodone 10 mg-acetaminophen 1 tab PO Q4H PRN 30 Days #130 tab 12/26/20 01/27/21 Unknown Rx 325 mg tablet hydrocodone 10 mg-acetaminophen 1 tab PO Q4H PRN 30 Days #130 tab 12/26/20 01/27/21 01/27/21 Rx 325 mg tablet Allergies Allergy/AdvReac Type Severity Reaction Status Date / Time adhesive Allergy Unknown ALGY-Bliste Verified 12/26/20 11:43 r levofloxacin [From Levaquin] Allergy Unknown Unknown Verified 12/26/20 11:43 Sulfa (Sulfonamide Allergy Unknown Unknown Verified 12/26/20 11:43 Antibiotics) sulfamethoxazole Allergy Unknown Unknown Verified 12/26/20 11:43 [From Bactrim] tramadol Allergy Unknown Unknown Verified 12/26/20 11:43 trimethoprim [From Bactrim] Allergy Unknown Unknown Verified 12/26/20 11:43 codeine AdvReac Unknown ADR-Anxiety Verified 12/26/20 11:43 propoxyphene AdvReac Unknown ADR-Halluci Verified 12/26/20 11:43 nating PFSH Acute PFSH: Medical History (Updated 01/27/21 @ 18:30 by Jillian Ramirez MD) Anemia in chronic kidney disease ESRD (end stage renal disease) on dialysis High risk medication use History of peritoneal dialysis Add Enterobacter followed by fungal peritonitis leading to PD catheter removal in 2013 Hypertension Immunization counseling 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 Some wire extrusion 4th digit associated with recurrent infection. History of right hip replacement History of total bilateral knee replacement Family History Father Rheumatoid arthritis Denies family history of Systemic lupus erythematosus, unspecified Diabetes Cancer Social History Alcohol intake: never Current occupational status: retired History of recent travel: No Current gender identity: Female Vitals/I&O/Wt Last Vital Signs Temp 98.3 F 01/27/21 14:54 Pulse 85 01/27/21 15:50 Resp 18 01/27/21 15:50 BP 181/89 01/27/21 15:50 Pulse Ox 95 01/27/21 15:50 01/27/21 01/27/21 01/27/21 06:59 14:59 22:59 Intake Total 50 / 50 Balance 50 / 50 Weight last 48 hrs Weight 56.699 kg Physical Exam Narrative: EXAM NARRATIVE: Patient is laying supine On 1.5 L nasal cannula Pursed lip breathing however not using respiratory accessory muscles Awake and alert EOMI, PERRLA Joint deformities noted Hand contractures Lower extremity venous dermatitis no cellulitis Onychomycosis S1, S2 Soft abdomen Bilateral breath sounds with mild rhonchi at the bases No conversational dyspnea Data : 01/27/21 15:56 01/27/21 15:56 A&P Assessment and plan (1) Acute dyspnea: Status: Acute (2) Hypoxemia: Status: Acute (3) Seropositive rheumatoid arthritis of multiple sites: Status: Acute (4) Osteoporosis: Status: Acute (5) Seropositive rheumatoid arthritis: Status: Acute (6) Anemia in chronic kidney disease: Status: Acute (7) Secondary hyperparathyroidism (of renal origin): Status: Acute (8) Hypertension: Status: Acute Qualifiers: Hypertension type: renovascular hypertension Qualified Code(s): I15.0 - Renovascular hypertension (9) Microscopic colitis: Status: Acute Qualifiers: Microscopic colitis type: collagenous colitis Qualified Code(s): K52.831 - Collagenous colitis (10) ESRD (end stage renal disease) on dialysis: Status: Acute Additional A&P Information Acute hypoxia No respiratory failure she does not have conversational dyspnea Chronic pursed lip breathing Currently requiring 1.52 L Rule out pneumonia, requested CT chest without contrast She received vancomycin and cefepime for now I would use ceftriaxone and azithromycin for community-acquired pneumonia Afebrile, mild leukocytosis She is vaccinated for COVID-19 End-stage renal disease Hemodialysis dependent Thursday Anemia of chronic disease patient is stating that she recently received IV iron Seropositive rheumatoid arthritis no acute joint pain Osteoporosis Degenerative vertebral joint disease: She is complaining of back pain which she thinks is same intensity as a chronic level Microscopic colitis: Chronic diarrhea Full code Renal dialysis diet We will consult nephro Psoriasiform dermatitis follows up with dermatology Peripheral arterial disease onychomycosis follows up with Dr. Magallanes She sees Dr. 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
[2021-01-27 17:51] VITALS: RESP 16
[2021-01-27] MEDS: oxyCODONE-APAP 10-325 mg Tablet 1 TAB PO (17:51)
[2021-01-27 18:07] LABS: Procalcitonin 0.38 ng/mL (0-0.5)
--- NOTE | 2021-01-27 18:35 | CTR_ITS ---
PROCEDURE INFORMATION: Exam: CT Chest Without Contrast; Diagnostic Exam date and time: 01/27/2021 6:35 PM Age: 70 years old Clinical indication: Other: Hypoxia; Additional info: Hypoxia new onset TECHNIQUE: Imaging protocol: Diagnostic computed tomography of the chest without contrast. Radiation optimization: All CT scans at this facility use at least one of these dose optimization techniques: automated exposure control; mA and/or kV adjustment per patient size (includes targeted exams where dose is matched to clinical indication); or iterative reconstruction. COMPARISON: CT chest [facility] [id number] 02/19/2019 2:29 PM RADIATION DOSE METRICS: Total DLP (mGy-cm): 574.72 FINDINGS: Lungs: Mild bibasilar atelectasis and/or pneumonia. Pleural spaces: Mild bilateral pleural fluid collections. Heart: Severe calcified coronary artery disease. Severe calcification in the mitral valve and/or mitral valve annulus. Borderline to mild cardiomegaly. Aorta: Calcification of the thoracic aorta and/or great vessels consistent with atherosclerotic vessel disease. Calcification of the abdominal aorta and/or iliac arteries consistent with atherosclerotic vessel disease. Lymph nodes: Calcified right hilar nodes and/or mediastinal nodes and/or lung granulomas consistent with old granulomatous disease. Kidneys and ureters: Small vessel arterial calcifications in the renal jose bilaterally which are often associated with chronic renal failure. Moderate left renal atrophy. Bones/joints: Chronic appearing 80% compression fractures of T7 and T12. Healed fracture of the sternum with residual deformity. Soft tissues: Unremarkable. CT/CT chest [facility] [id number] IMPRESSION: 1. Severe calcified coronary artery disease. 2. Mild bilateral pleural fluid collections. 3. Mild bibasilar atelectasis and/or pneumonia. 4. Borderline to mild cardiomegaly.
[2021-01-27 19:00] VITALS: BP 135/78; PULSE 62; RESP 16; O2SAT 94
[2021-01-27 19:29] LABS: D Dimer 1.38 ug/mIFEU (0-0.59)
[2021-01-28] VITALS (8 sets, daily range): BP systolic 129–205; BP diastolic 61–93; PULSE 62–80; RESP 16–18; TEMP 36.8–37; O2SAT 88–98
--- NOTE | 2021-01-28 05:45 | USCV_ITS ---
Lady Woodward Age: 70 Gender: F : 1950 Exam Date: 01/28/2021 06:29 Ordering Phys: Jillian Ramirez MD Technologist: Blanche Mittal Exam Location: [facility] – [place]_ Indication: BLE SWELLING HISTORY: Lower extremity swelling. PROCEDURES: Venous duplex imaging was performed in bilateral lower extremities. The following venous structures were evaluated: common femoral vein, profunda vein, proximal portion of the greater saphenous vein, superficial femoral vein, and the popliteal vein. In addition, the posterior tibial and peroneal trunk were evaluated. Serial compression, augmentation maneuvers, and spectral Doppler flow evaluation were performed. FINDINGS: No evidence of DVT seen in any vessel visualized at this time. CONCLUSIONS No evidence of right lower extremity DVT. No evidence of left lower extremity DVT. Rod Newton MD (Electronically Signed) Final Date: 28 January 2021 10:46 S
--- NOTE | 2021-01-28 07:10 | PM.CONSULT ---
Providers/Reason For Consult Consulting Physician/Specialty*: royal rosenberg md/ telenephrology Reason for Consult*: ESRD/ SOB Attending Physician: Jillian Ramirez MD Primary Care Provider: Erwin Layne MD History of Present Illness History of Present Illness Lady Woodward is a 70 year old female w/ ESRD- HD MWF, RA, anemia. Pt here w/ cough and SOB. she was diagnoised w/ pna- started on abx. renal called for HD/ ESRD management. Review of Systems General: Reports: 10 or more systems reviewed and unremarkable except in HPI and below Narrative: weak, cough, sob, BROOKE. no n/v/nieto/d/leg pain. + subjective fevers Meds/Allergies Home Medications and Allergies Home Medications Medication Instructions Recorded Confirmed Last Taken Type clonidine HCl 0.1 mg PO Q6H PRN 02/18/19 01/27/21 Unknown History diazepam 5 mg PO BID PRN 02/18/19 01/27/21 02/17/19 History labetalol 400 mg PO TID PRN MDD see pharmacy 02/18/19 01/27/21 02/17/19 History comment fluticasone propion-salmeterol 2 inh INHALATION BID #12 gm 02/24/19 01/27/21 Unknown Rx [Advair HFA] sevelamer carbonate 800 mg tablet 800 mg PO TID 06/06/19 01/27/21 01/27/21 History denosumab 60 mg/mL subcutaneous 60 mg SUBCUT .[id number] ml 11/24/19 01/27/21 Unknown History syringe clobetasol 0.05 % topical cream 1 applic TOPICAL BID 14 Days #60 g 07/18/20 01/27/21 Unknown Rx mupirocin 2 % topical ointment 1 applic TOPICAL BID #22 g 07/18/20 01/27/21 Unknown Rx triamcinolone acetonide 0.1 % 1 applic TOPICAL BID #453.6 g 07/18/20 01/27/21 Unknown Rx topical cream hydrocodone 10 mg-acetaminophen 1 tab PO Q4H PRN 30 Days #130 tab 12/26/20 01/27/21 Unknown Rx 325 mg tablet hydrocodone 10 mg-acetaminophen 1 tab PO Q4H PRN 30 Days #130 tab 12/26/20 01/27/2121 Rx 325 mg tablet Allergies Allergy/AdvReac Type Severity Reaction Status Date / Time adhesive Allergy Unknown ALGY-Bliste Verified 12/26/20 11:43 r levofloxacin [From Levaquin] Allergy Unknown Unknown Verified 12/26/20 11:43 Sulfa (Sulfonamide Allergy Unknown Unknown Verified 12/26/20 11:43 Antibiotics) sulfamethoxazole Allergy Unknown Unknown Verified 12/26/20 11:43 [From Bactrim] tramadol Allergy Unknown Unknown Verified 12/26/20 11:43 trimethoprim [From Bactrim] Allergy Unknown Unknown Verified 12/26/20 11:43 codeine AdvReac Unknown ADR-Anxiety Verified 12/26/20 11:43 propoxyphene AdvReac Unknown ADR-Halluci Verified 12/26/20 11:43 nating PFSH Acute PFSH: Medical History (Updated 01/27/21 @ 18:30 by Jillian Ramirez MD) Anemia in chronic kidney disease ESRD (end stage renal disease) on dialysis High risk medication use History of peritoneal dialysis Add Enterobacter followed by fungal peritonitis leading to PD catheter removal in 2012 Hypertension Immunization counseling 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 Some wire extrusion 4th digit associated with recurrent infection. History of right hip replacement History of total bilateral knee replacement Family History Father Rheumatoid arthritis Denies family history of Systemic lupus erythematosus, unspecified Diabetes Cancer Social History Alcohol intake: never Current occupational status: retired History of recent travel: No Current gender identity: Female Vitals/I&O/Wt Last Vital Signs Temp 98.3 F 01/28/21 00:27 Pulse 63 01/28/21 04:06 Resp 18 01/28/21 04:06 BP 147/79 01/28/21 04:06 Pulse Ox 96 01/28/21 04:06 01/27/21 01/28/21 01/28/21 22:59 06:59 14:59 Intake Total 50 / 50 Balance 50 / 50 Weight last 48 hrs Weight 56.699 kg Physical Exam Narrative: EXAM NARRATIVE: exam by RN as telehealth visit vss, noted sob in bed on nc 02 heent- nc/at, eomi, anicteric neck supple lungs crackles and dull bases heart reg, no rub abd soft, nt, nd, +BS ext rt arm AVF w/ thrill and bruit neuro- a,a, o x 3 A&P Additional A&P Information 70 yr old female ESRD, RA 1. ESRD- HD now - 3.5 hrs, 3k, remove 2.5 l 2. PNA- ct scan reviewed- Mild bilateral pleural fluid collections, Mild bibasilar atelectasis and/or pneumonia, and Borderline to mild cardiomegaly. 3. anemia 4. CHF- bnp [id number] 6. htn- dec meds to allow more fluid removal on HD seen and examined w/ RN- telehealth visit Consult Attestations Medical Necessity Statement: pna, esrd Time Spent in Patient Care: Greater than 35 minutes (>than 50% of time spent in counselling and/or direct pt care on unit). 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
--- NOTE | 2021-01-28 08:03 | PC.NURSE ---
Dr. Ramirez spoke with this RN, advised the plan for pt is to complete dialysis, orders entered for PT eval as well as Home O2 eval after dialysis is complete. Pt then able to be discharged home.
[2021-01-28 08:54] LABS: Hepatitis B Surface Antigen Non-Reactive (Nonreactive); Hepatitis C Virus Antibody Non-Reactive (Nonreactive)
[2021-01-28 08:56] LABS: Hepatitis B Surface AB < 3.5 (11.5-1000)
[2021-01-28] MEDS: HYDROcodone-acetaminophen 10-325 mg Tablet 1 TAB PO ×2 (09:00→16:35)
[2021-01-28] MEDS: azithromycin 250 mg Tablet 500 MG PO (09:03)
--- NOTE | 2021-01-28 10:15 | PC.NURSE ---
senior support engineer calling for report, will come down to pick pt up in just a few minutes
--- NOTE | 2021-01-28 11:21 | PC.NURSE ---
Pt left floor with vessel operator to complete dialysis at 1030
--- NOTE | 2021-01-28 11:52 | P.DS_ITS ---
Discharge Providers Date of Admission: 01/27/21 16:59 Date of Discharge: January 28, 2021 Attending Provider at Admission: Jillian Ramirez MD Attending Provider at Discharge: Jillian Ramirez MD Primary Care Provider: Erwin Layne MD Diagnoses at Discharge Discharge Diagnosis (1) Acute dyspnea: Status: Acute (2) Hypoxemia: Status: Acute (3) Seropositive rheumatoid arthritis of multiple sites: Status: Acute (4) Osteoporosis: Status: Acute (5) Seropositive rheumatoid arthritis: Status: Acute (6) Anemia in chronic kidney disease: Status: Acute (7) Secondary hyperparathyroidism (of renal origin): Status: Acute (8) Hypertension: Status: Acute Qualifiers: Hypertension type: renovascular hypertension Qualified Code(s): I15.0 - Renovascular hypertension (9) Microscopic colitis: Status: Acute Permanent problem details: on endocort Qualifiers: Microscopic colitis type: collagenous colitis Qualified Code(s): K52.831 - Collagenous colitis (10) ESRD (end stage renal disease) on dialysis: Status: Acute Reason for Visit Reason for Visit: TROUBLE BREATHING/HIGH BP Hospital Course Hospital Course History of Present Illness Lady Woodward is a 70 year old female with end-stage renal disease Thursday regimen, rheumatoid arthritis, no compromise, chronic anemia, presented today for worsening shortness of breath. Patient is stating that she got dialyzed on Thursday, this time only 2 points were removed normally she notices more than 2 pounds of weight change after her dialysis. On Thursday morning she started experiencing orthopnea and PND, she woke up feeling short of breath, no fever, chest pain she has chronic diarrhea, she did not notice any fever. She is vaccinated for COVID-19. At home she does not use any oxygen. Because of worsening shortness of breath she was brought to the ER for further evaluation. In the ER she was diagnosed with mild leukocytosis, chronic anemia, she was requiring 3 L of oxygen at the time of initial evaluation however when I saw her she was on 1.5 L Hypertensive, awake and alert, patient is stating that she has chronic pursed lip breathing I have requested CT chest to better delineate lung parenchyma, there is concern for developing pneumonia in left lower lobe, she was given vancomycin and cefepime regimen in the ER Hospital course Patient was admitted for observation, she was requiring oxygen in the ER, because of lack of bed availability she spent 2 nights in the ER, she qualified for 2 L of oxygen at the time of discharge, she went for dialysis on 01/28, CT chest without contrast was requested which showed concerning changes of left lower lobe atelectasis versus infiltrate, she was treated as community-acquired pneumonia, at the time of discharge she received Levaquin 500 mg every 48 hours 7-day regimen, amlodipine was added for her hypertension. DVT ruled out, she was never tachycardic. No active chest pain or shortness of breath. She has chronic pursed lip breathing pattern. Patient was feeling back to her baseline and wanted to go home. I will give her a prescription for CTA chest which can be done on Thursday before her dialysis session. Physical Exam Narrative: EXAM NARRATIVE: Elderly female who appears stated age Doing well on 2 L nasal cannula Looks euvolemic S1, S2 Abdomen soft Multiple joint deformities, finger contractures noted EOMI, PERRLA Nonfocal neuro exam Discharge Data Data Completed and Pending: Completed Studies During Hospitalization Category Date Time Status CT chest wo con 7 1250 Stat Cat Scan 01/27/21 18:35 Completed XR chest 1V remedios ble [id number] Urgent Exams 01/27/21 15:06 [place] [id number] Routin e Ultrasound 01/28/21 05:45 Completed Pending at discharge Category Date Time Status Basic Metabolic P loni AM LABS Lab 01/29/21 04:00 Ordered Complete Blood Co unt w/Auto AM LABS Lab 01/29/21 04:00 Ordered Comprehensive Met abolic Panel AM LA BS Lab 01/29/21 04:00 Ordered Ferritin AM LABS Lab 01/29/21 04:00 Ordered Magnesium AM LABS Lab 01/29/21 04:00 Ordered Phosphorus AM LAB S Lab 01/29/21 04:00 Ordered Phosphorus AM LAB S Lab 01/30/21 04:00 Ordered Phosphorus AM LAB S Lab 01/31/21 04:00 Ordered Total Iron Bindin g Capacity AM LABS Lab 01/29/21 04:00 Ordered Labs from last 24 hours 01/28/21 01/27/21 01/27/21 07:59 19:06 15:56 WBC RBC Hgb Hct MCV MCH MCHC RDW Plt Count MPV Neut % (Auto) Lymph % (Auto) Meriwether % (Auto) Eos % (Auto) Baso % (Auto) Neut # (Auto) Lymph # (Auto) Meriwether # (Auto) Eos # (Auto) Baso # (Auto) Nucleated RBC % (a uto) Nucleated RBCs # D-Dimer 1.38 H Sodium 141 Potassium 4.2 Chloride 98 Carbon Dioxide 25 Anion Gap 22.2 H BUN 50 H Creatinine 6.3 H* GFR Calculation 6.6 L Glucose 96 Calculated Osmolal ity 305 H Calcium 9.0 Total Bilirubin 0.2 AST 44 H ALT 29 Alkaline Phosphata se 140 H NT-Pro-B Natriuret Pep 47593 H Total Protein 7.1 Albumin 3.8 Globulin 3.3 Procalcitonin Hep Bs Antigen Non-reactive Hep Bs Antibody < 3.5 L Hepatitis C Antibo dy Non-reactive 01/27/21 01/27/21 15:56 15:50 WBC 10.2 H RBC 2.90 L Hgb 8.9 L Hct 28.2 L MCV 97.2 MCH 30.7 MCHC 31.6 RDW 16.0 H Plt Count 293 MPV 10.4 Neut % (Auto) 77.2 Lymph % (Auto) 9.1 Meriwether % (Auto) 11.3 Eos % (Auto) 1.4 Baso % (Auto) 0.7 Neut # (Auto) 7.90 H Lymph # (Auto) 0.9 Meriwether # (Auto) 1.2 H Eos # (Auto) 0.1 Baso # (Auto) 0.1 Nucleated RBC % (a uto) 0 Nucleated RBCs # 0.0 D-Dimer Sodium Potassium Chloride Carbon Dioxide Anion Gap BUN Creatinine GFR Calculation Glucose Calculated Osmolal ity Calcium Total Bilirubin AST ALT Alkaline Phosphata se NT-Pro-B Natriuret Pep Total Protein Albumin Globulin Procalcitonin 0.38 Hep Bs Antigen Hep Bs Antibody Hepatitis C Antibo dy Vitals: Last Vital Signs Temp 98.3 F 01/28/21 00:27 Pulse 68 01/28/21 08:26 Resp 17 01/28/21 08:26 BP 168/93 01/28/21 08:00 Pulse Ox 98 01/28/21 08:26 Discharge Plan Discharge Patient Disposition: Home Condition: Stable Prescriptions: New amlodipine 10 mg tablet 10 mg PO DAILY Qty: 30 RF: 3 levofloxacin 750 mg tablet 750 mg PO DAILY 7 Days Qty: 7 RF: 0 Continued Prolia 60 mg/mL syringe 60 mg SUBCUT .[id number] RF: 0 clobetasol 0.05 % cream 1 applic topical BID 14 Days Qty: 60 RF: 3 triamcinolone acetonide 0.1 % cream 1 applic topical BID Qty: 453.6 RF: 1 mupirocin 2 % ointment 1 applic topical BID Qty: 22 RF: 1 hydrocodone-acetaminophen 10-325 mg tablet 1 tab PO Q4H PRN (Reason: pain) 30 Days Qty: 130 RF: 0 hydrocodone-acetaminophen 10-325 mg tablet 1 tab PO Q4H PRN (Reason: pain) 30 Days Qty: 130 RF: 0 clonidine HCl 0.1 mg tablet 0.1 mg PO Q6H PRN (Reason: Blood Pressure) RF: 0 labetalol 200 mg tablet 400 mg PO TID MDD see pharmacy comment PRN (Reason: Blood Pressure) RF: 0 diazepam 5 mg tablet 5 mg PO BID PRN (Reason: Anxiety) RF: 0 Advair HFA 115-21 mcg/actuation HFA aerosol inhaler 2 inh INHALATION BID Qty: 12 RF: 0 Renvela 800 mg tablet 800 mg PO TID RF: 0 Discharge Orders: Discharge Order (Routine); Ordered 01/28/21 Ordered By: Jillian Ramirez Other Ambulatory Orders: DME: Oxygen (Order) Location: None Selected Ordered By: Jillian Ramirez DME: Oxygen (Order) Location: None Selected Ordered By: Jillian Ramirez Referrals: Erwin Layne MD [Primary Care Provider] - 4-7 days Discharge Diet: Cardiac Discharge Activity: Increase activity as tolerated Patient Instructions: Opioid Safety Discharge Attestations Time Spent in Discharge Care*: less than 30 min Quality Metrics Clinical Quality Measures During this hospital stay, did patient experience: None Coding Level of Care Code Acute g [facility] note Diagnoses Acute dyspnea R06.00 Hypoxemia R09.02 Seropositive rheumatoid arthritis of multiple sites M05.79 Osteoporosis M81.0 Seropositive rheumatoid arthritis M05.9 Anemia in chronic kidney disease N18.9; D63.1 Secondary hyperparathyroidism (of renal origin) N25.81 Hypertension I15.0 Hypertension type: renovascular hypertension Microscopic colitis K52.831 Microscopic colitis type: collagenous colitis ESRD (end stage renal disease) on dialysis N18.6; Z99.2
--- NOTE | 2021-01-28 15:19 | PC.NURSE ---
This Rn recieved report from Diaylsis RN at 1453, advised pt will be back in room shortly, dialysis complete.Advised 2.5L pulled from opt over 3.5 hours, pt was HTN throughout dialysis which is baseline for pt. Last BP 205/71 while still on dialysis floor
--- NOTE | 2021-01-28 15:38 | PC.SOCIAL ---
[facility] called asking about levaquin. pharmacy stated with pt being a dialysis pt she just needs to have levaquin 500mg every other day. verified this with dr. hines. he verbalized that that was corrected. Called Kerry at the pharmacy and gave a verbal to do Levaquin 500 mg q 48 hours x7 doses, starting 12.
== END 2021-01-31 08:18 | disposition home or self-care (01) ==
LOC: ER 17:36 → ER IP 18:31
PROVIDERS: Internal Medicine Nephrology; Physician Assistant; Admitting Provider Internal Medicine; Emergency Provider Emergency Medicine; PCP Family Medicine; Visit Provider Internal Medicine
DX: R06.00 Dyspnea, unspecified (principal); R09.02 Hypoxemia; M05.79 Rheumatoid arthritis with rheumatoid factor of multiple sites without organ or systems involvement; M81.0 Age-related osteoporosis without current pathological fracture; M79.89 Other specified soft tissue disorders; D63.1 Anemia in chronic kidney disease; N25.81 Secondary hyperparathyroidism of renal origin; K52.831 Collagenous colitis; I13.2 Hypertensive heart and chronic kidney disease with heart failure and with stage 5 chronic kidney disease, or end stage renal disease; I50.9 Heart failure, unspecified; N18.6 End stage renal disease; Z99.2 Dependence on renal dialysis; G47.33 Obstructive sleep apnea (adult) (pediatric)
CPT/HCPCS: 36415; 71045; 71250; 80053; 83880; 84145; 85025; 85378; 86706; 86803; 87340; 93005; 93970; 96365; 96367; 99291; G0378; J0692; J3370; J7050; Q0144

== ENCOUNTER → 2021-03-06 11:07 | Outpatient (BNVA) | payer MEDICARE, OTHER, SELFPAY | PROVIDERS: PCP Family Medicine; Visit Provider Anesthesiology Pain Medicine | DX: M05.79 Rheumatoid arthritis with rheumatoid factor of multiple sites without organ or systems involvement (principal); M54.2 Cervicalgia; M81.0 Age-related osteoporosis without current pathological fracture; I15.0 Renovascular hypertension; D89.9 Disorder involving the immune mechanism, unspecified; T84.7XXA Infection and inflammatory reaction due to other internal orthopedic prosthetic devices, implants and grafts, initial encounter; Z79.899 Other long term (current) drug therapy; Z79.891 Long term (current) use of opiate analgesic | CPT/HCPCS: 99214 ==

== ENCOUNTER 2021-04-10 11:02 | Outpatient (CLI) | payer MEDICARE, OTHER, SELFPAY ==
[2021-04-10 11:35] VITALS: BP 149/77; PULSE 72; RESP 18; TEMP 36.6; O2SAT 97
[2021-04-10] MEDS: denosumab 60 mg SDV SUBCUT (11:41)
[2021-04-10 11:49] VITALS: BP 151/72; PULSE 67; RESP 18; TEMP 36.8; O2SAT 98
== END 2021-04-10 11:03 | disposition home or self-care (01) ==
PROVIDERS: PCP Family Medicine; Referring Provider Internal Medicine Rheumatology; Visit Provider Internal Medicine Rheumatology
DX: M81.0 Age-related osteoporosis without current pathological fracture (principal)
CPT/HCPCS: 96372; J0897

== ENCOUNTER → 2021-05-01 10:57 | Outpatient (BNVA) | payer MEDICARE, OTHER, SELFPAY | PROVIDERS: PCP Family Medicine; Visit Provider Anesthesiology Pain Medicine | DX: M05.79 Rheumatoid arthritis with rheumatoid factor of multiple sites without organ or systems involvement (principal); M54.2 Cervicalgia; D89.9 Disorder involving the immune mechanism, unspecified; T84.7XXA Infection and inflammatory reaction due to other internal orthopedic prosthetic devices, implants and grafts, initial encounter; Z79.899 Other long term (current) drug therapy; Z79.891 Long term (current) use of opiate analgesic | CPT/HCPCS: 99214 ==

== ENCOUNTER → 2021-05-03 17:55 | Outpatient (BNVA) | payer MEDICARE, OTHER, SELFPAY | PROVIDERS: PCP Family Medicine; Visit Provider Nurse Practitioner | DX: R05.9 Cough, unspecified (principal); H61.21 Impacted cerumen, right ear; B34.9 Viral infection, unspecified | CPT/HCPCS: 87400 ==

== ENCOUNTER → 2021-07-03 11:14 | Outpatient (BNVA) | payer MEDICARE, OTHER, SELFPAY | PROVIDERS: PCP Family Medicine; Visit Provider Anesthesiology Pain Medicine | DX: M05.79 Rheumatoid arthritis with rheumatoid factor of multiple sites without organ or systems involvement (principal); M54.2 Cervicalgia; D89.9 Disorder involving the immune mechanism, unspecified; T84.7XXA Infection and inflammatory reaction due to other internal orthopedic prosthetic devices, implants and grafts, initial encounter; Z79.899 Other long term (current) drug therapy; Z79.891 Long term (current) use of opiate analgesic | CPT/HCPCS: 99214 ==

== ENCOUNTER → 2021-07-25 15:02 | Outpatient (BNVA) | payer MEDICARE, OTHER, SELFPAY | PROVIDERS: PCP Family Medicine; Visit Provider Podiatrist Foot & Ankle Surgery | DX: L60.3 Nail dystrophy (principal); E11.8 Type 2 diabetes mellitus with unspecified complications; I73.9 Peripheral vascular disease, unspecified; M20.41 Other hammer toe(s) (acquired), right foot; M20.42 Other hammer toe(s) (acquired), left foot; M21.41 Flat foot [pes planus] (acquired), right foot; M21.42 Flat foot [pes planus] (acquired), left foot | CPT/HCPCS: 11721 ==

== ENCOUNTER → 2021-08-28 11:26 | Outpatient (BNVA) | payer MEDICARE, OTHER, SELFPAY | PROVIDERS: PCP Family Medicine; Visit Provider Anesthesiology Pain Medicine | DX: M05.79 Rheumatoid arthritis with rheumatoid factor of multiple sites without organ or systems involvement (principal); M54.9 Dorsalgia, unspecified; M54.2 Cervicalgia; D89.9 Disorder involving the immune mechanism, unspecified; T84.7XXA Infection and inflammatory reaction due to other internal orthopedic prosthetic devices, implants and grafts, initial encounter; M25.511 Pain in right shoulder; M25.512 Pain in left shoulder; Z79.899 Other long term (current) drug therapy; Z79.891 Long term (current) use of opiate analgesic; X58.XXXA Exposure to other specified factors, initial encounter | CPT/HCPCS: 99214 ==

== ENCOUNTER 2021-10-17 11:15 | Outpatient (CLI) | payer MEDICARE, OTHER, SELFPAY ==
[2021-10-17 11:27] VITALS: BP 168/79; PULSE 89; RESP 18; TEMP 37.1; O2SAT 95
[2021-10-17] MEDS: denosumab 60 mg SDV SUBCUT (11:27)
[2021-10-17 11:37] VITALS: BP 160/82; PULSE 78; RESP 18; TEMP 37.2; O2SAT 95
== END 2021-10-17 11:16 | disposition home or self-care (01) ==
PROVIDERS: PCP Family Medicine; Visit Provider Internal Medicine Rheumatology
DX: M81.0 Age-related osteoporosis without current pathological fracture (principal)
CPT/HCPCS: 96372; J0897

== ENCOUNTER → 2021-10-30 11:11 | Outpatient (BNVA) | payer MEDICARE, OTHER, SELFPAY | PROVIDERS: PCP Family Medicine; Visit Provider Podiatrist Foot & Ankle Surgery | DX: E11.8 Type 2 diabetes mellitus with unspecified complications (principal); I73.9 Peripheral vascular disease, unspecified; M20.41 Other hammer toe(s) (acquired), right foot; M20.42 Other hammer toe(s) (acquired), left foot; L60.3 Nail dystrophy; M21.41 Flat foot [pes planus] (acquired), right foot; M21.42 Flat foot [pes planus] (acquired), left foot | CPT/HCPCS: 11721 ==

== ENCOUNTER → 2021-10-30 11:11 | Outpatient (BNVA) | payer MEDICARE, OTHER, SELFPAY | PROVIDERS: PCP Family Medicine; Visit Provider Anesthesiology Pain Medicine | DX: G89.29 Other chronic pain (principal); M25.522 Pain in left elbow; M05.79 Rheumatoid arthritis with rheumatoid factor of multiple sites without organ or systems involvement; M54.9 Dorsalgia, unspecified; M54.2 Cervicalgia; D89.9 Disorder involving the immune mechanism, unspecified; T84.7XXA Infection and inflammatory reaction due to other internal orthopedic prosthetic devices, implants and grafts, initial encounter; Z79.899 Other long term (current) drug therapy | CPT/HCPCS: 99214 ==

== ENCOUNTER → 2022-01-06 11:07 | Outpatient (BNVA) | payer MEDICARE, OTHER, SELFPAY | PROVIDERS: PCP Family Medicine; Visit Provider Anesthesiology Pain Medicine | DX: M05.79 Rheumatoid arthritis with rheumatoid factor of multiple sites without organ or systems involvement (principal); M54.9 Dorsalgia, unspecified; M54.2 Cervicalgia; D89.9 Disorder involving the immune mechanism, unspecified; T84.7XXA Infection and inflammatory reaction due to other internal orthopedic prosthetic devices, implants and grafts, initial encounter; Z79.899 Other long term (current) drug therapy | CPT/HCPCS: 99214 ==

== ENCOUNTER → 2022-02-18 12:56 | Outpatient (BNVA) | payer MEDICARE, SELFPAY | PROVIDERS: PCP Family Medicine; Visit Provider Podiatrist Foot & Ankle Surgery | DX: E11.8 Type 2 diabetes mellitus with unspecified complications (principal); I73.9 Peripheral vascular disease, unspecified; M20.41 Other hammer toe(s) (acquired), right foot; M20.42 Other hammer toe(s) (acquired), left foot; L60.3 Nail dystrophy; M21.41 Flat foot [pes planus] (acquired), right foot; M21.42 Flat foot [pes planus] (acquired), left foot | CPT/HCPCS: 11721 ==

== ENCOUNTER → 2022-03-03 11:01 | Outpatient (BNVA) | payer MEDICARE, SELFPAY | PROVIDERS: PCP Family Medicine; Visit Provider Anesthesiology Pain Medicine | DX: M05.79 Rheumatoid arthritis with rheumatoid factor of multiple sites without organ or systems involvement (principal); M54.9 Dorsalgia, unspecified; M54.2 Cervicalgia; X58.XXXA Exposure to other specified factors, initial encounter; D89.9 Disorder involving the immune mechanism, unspecified; Z79.899 Other long term (current) drug therapy | CPT/HCPCS: 99213 ==

== ENCOUNTER 2022-03-07 16:59 | Emergency (ER) | payer MEDICARE, SELFPAY ==
[2022-03-07] VITALS (7 sets, daily range): BP systolic 143; BP diastolic 83; PULSE 78–85; RESP 18–22; TEMP 37.5; O2SAT 91–92
--- NOTE | 2022-03-07 17:27 | XRR_ITS ---
PROCEDURE INFORMATION: Exam: XR Chest Exam date and time: 03/07/2022 5:36 PM Age: 72 years old Clinical indication: Cough; Additional info: Dyspnea/cough TECHNIQUE: Imaging protocol: Radiologic exam of the chest. Views: 1 view. COMPARISON: CT chest [facility] [id number] 01/27/2021 6:56 PM FINDINGS: Lungs: Emphysematous changes. Pleural spaces: Trace bilateral pleural effusions. Heart/Mediastinum: Cardiomegaly. Bones/joints: Right proximal humerus sclerotic bony lesion suggestive of an enchondroma or bone infarct, similar to prior exam. XR/XR chest 1V portable [id number] IMPRESSION: 1. Trace bilateral pleural effusions. 2. Cardiomegaly. 3. Emphysematous changes. 4. Right proximal humerus sclerotic bony lesion suggestive of an enchondroma or bone infarct, similar to prior exam.
--- NOTE | 2022-03-07 17:42 | ECG_ITS ---
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 Measurements Intervals [place] Rate: 81 P: 121 KS: 174 QRS: 210 QRSD: 102 T: 117 QT: 415 QTc: 483 Interpretive Statements ECTOPIC ATRIAL RHYTHM RIGHT AXIS DEVIATION [QRS AXIS > 100] CONSIDER LIMB LEAD REVERSAL Compared to ECG 01/27/2021 15:46:08 Ectopic atrial rhythm now present Right-axis deviation now present Sinus rhythm no longer present Electronically Signed On 03-07-2022 21:41:51 [employer] by Patricia Cardoso M.D. [email or web address]
--- NOTE | 2022-03-07 17:45 | W.ED.SOB ---
Documented by User: Anatoly Bertrand DO 03/12/22 06:30 HPI - SOB/Dyspnea General: Chief Complaint: Shortness of Breath/Dyspnea Stated Complaint: fluid retention,SOB Time Seen by Provider: 03/07/22 17:24 Source: patient Mode of arrival: wheelchair History of Present Illness: HPI Narrative: 72-year-old female who presents to the emergency room with complaints of cough low-grade fever. Cough has been nonproductive. Patient has known end-stage renal disease she missed her dialysis on Thursday. Today is Thursday she did have a full dialysis run but they were not able to get her down to her dry weight. She was directed to the emergency room. She says she has a nonproductive cough. He has a known history of rheumatoid arthritis and is on biological therapy. She also has a history of COPD. She has oxygen at home does not always use her regularly. Triage nurse said that when they first came in her oxygen was 90% on room air. Shortly after I had seen her, staff put her on 2 L and her oxygen sat went up to 96 to 97%. MD elicited complaint: shortness of breath and cough Pertinent past history: COPD Onset (ago): day(s) Timing: constant Severity: mild Exacerbating factors: exertion and coughing Relieving factors: rest Associated symptoms: Reports chest congestion and cough; Deny abdominal pain, chest pain, diaphoresis, dizziness, extremity pain, fever(s), hemoptysis, lightheadedness, myalgias, nausea, orthopnea, palpitations, paresthesias, polydipsia, polyuria, rash, sense of impending doom, syncope or vomiting Treatment prior to arrival: none Review of Systems Const: Denies: fever(s), chills, fatigue, malaise or diaphoresis ENMT: Denies: throat pain, ear or mastoid pain, nasal discharge or nasal congestion Card: Denies: chest pain, palpitations, lightheadedness, syncope or orthopnea Resp: Reports: non-productive cough, wheezing and chest congestion; Denies: dyspnea, productive cough or hemoptysis GI: Denies: abdominal pain, nausea or vomiting : Denies: flank pain, difficulty voiding, dysuria, urinary frequency or urinary urgency Musc: Denies: extremity pain or extremity swelling Skin/Breast: Denies: rash or pruritus Neuro: Denies: dizziness Endo: Denies: polyuria or polydipsia PFSH ED PFSH: Medical History (Updated 03/07/22 @ 21:04 by Tip Jarvis DO) Anemia in chronic kidney disease ESRD (end stage renal disease) on dialysis High risk medication use History of peritoneal dialysis Add Enterobacter followed by fungal peritonitis leading to PD catheter removal in 2012 Hypertension Immunization counseling 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 Some wire extrusion 4th digit associated with recurrent infection. History of right hip replacement History of total bilateral knee replacement Family History Father Rheumatoid arthritis Denies family history of Systemic lupus erythematosus, unspecified Diabetes Cancer Social History Smoking and tobacco status: never smoked Second hand smoke exposure: No Alcohol intake: never Current occupational status: retired History of recent travel: No Current gender identity: Female Physical Exam Const: COMMON NORMALS: no acute distress GENERAL APPEARANCE: cooperative and comfortable ORIENTATION/CONSCIOUSNESS: Yes awake, Yes oriented to person, Yes oriented to place and Yes oriented to time HENMT: COMMON NORMALS: normocephalic, atraumatic and hearing grossly normal bilaterally HEAD & SCALP: normocephalic and atraumatic Resp: AUSCULTATION: rhonchi and wheezes Cardio: COMMON NORMALS: regular rate, regular rhythm and No murmurs present (Cardio) RATE: regular rate RHYTHM: regular rhythm GI: COMMON NORMALS: Soft to palpation and No hepatosplenomegaly present AUSCULTATION: Yes normoactive bowel sounds PALPATION: Yes Soft to palpation, No Tenderness to palpation present (GI), No Guarding due to palpation present (GI) and Yes No hepatosplenomegaly present Extremity: COMMON NORMALS: normal to inspection, capillary refill normal, no clubbing, cyanosis or edema, no calf tenderness and no pedal edema Neuro: SENSORIUM/ORIENTATION: Yes oriented to person, Yes oriented to place and Yes oriented to time Skin: COMMON NORMALS: no rashes or lesions noted GENERAL SKIN EXAM: no rashes or lesions noted Course Vital Signs: Vital signs: Vital Signs Temperature 99.5 F 03/07/22 17:19 Pulse Rate 85 03/07/22 21:39 Respiratory Rate 22 H 03/07/22 21:39 Blood Pressure 143/83 03/07/22 17:19 Pulse Oximetry 91 03/07/22 21:39 Oxygen Delivery Me thod 03/07/22 21:16 Oxygen Flow Rate 2 03/07/22 21:16 MDM - SOB/Dyspnea Medical Decision Making Care signed out to Dr. Jarvis at change of shift. See final notes for diagnosis and disposition. Lab Data 03/07/22 17:58 03/07/22 17:58 Labs/Radiology: Radiology Impressions Chest X-Ray 03/07/22 17:27 IMPRESSION: 1. Trace bilateral pleural effusions. 2. Cardiomegaly. 3. Emphysematous changes. 4. Right proximal humerus sclerotic bony lesion suggestive of an enchondroma or bone infarct, similar to prior exam. Laboratory Results WBC 5.2 10^3/uL (4.0-10.0) 03/07/22 17:58 RBC 3.39 10^6/uL (4.1-5.3) L 03/07/22 17:58 Hgb 10.3 g/dL (11.5-15.3) L 03/07/22 17:58 Hct 32.4 % (37.0-47.0) L 03/07/22 17:58 MCV 95.6 fl (81-99) 03/07/22 17:58 MCH 30.4 pg (28.0-34.0) 03/07/22 17:58 MCHC 31.8 g/dL (30.0-36.0) 03/07/22 17:58 RDW 15.4 % (12.1-15.1) H 03/07/22 17:58 Plt Count 195 10^3/cmm (130-400) 03/07/22 17:58 MPV 10.8 fL (7.4-10.4) H 03/07/22 17:58 Neut % (Auto) 71.8 % 03/07/22 17:58 Lymph % (Auto) 12.2 % 03/07/22 17:58 [place] % (Auto) 14.3 % 03/07/22 17:58 Eos % (Auto) 0.4 % 03/07/22 17:58 Baso % (Auto) 1.1 % 03/07/22 17:58 Neut # (Auto) 3.76 10^3/uL (1.8-7.7) 03/07/22 17:58 Lymph # (Auto) 0.6 10^3/uL (0.8-4.8) L 03/07/22 17:58 [place] # (Auto) 0.8 10^3/uL (0.2-0.9) 03/07/22 17:58 Eos # (Auto) 0.0 10^3/uL (0.0-0.8) 03/07/22 17:58 Baso # (Auto) 0.1 10^3/uL (0.0-0.1) 03/07/22 17:58 Nucleated RBC % (auto) 0 % 03/07/22 17:58 Nucleated RBCs # 0.0 /100WBC 03/07/22 17:58 Sodium 135 mmol/L (136-145) L 03/07/22 17:58 Potassium 3.5 mmol/L (3.5-5.1) 03/07/22 17:58 Chloride 91 mmol/L (98-107) L 03/07/22 17:58 Carbon Dioxide 30 mmol/L (22-29) H 03/07/22 17:58 Anion Gap 17.5 (5-19) 03/07/22 17:58 BUN 48 mg/dL (8-23) H 03/07/22 17:58 Creatinine 4.8 mg/dL (0.5-0.9) H 03/07/22 17:58 GFR Calculation Not Reportable 03/07/22 17:58 Glucose 92 mg/dL (65-115) 03/07/22 17:58 Calculated Osmolality 292 mOsm/kg (285-295) 03/07/22 17:58 Calcium 9.9 mg/dL (8.5-10.5) 03/07/22 17:58 Total Bilirubin 0.2 mg/dL (0.15-1.2) 03/07/22 17:58 AST 28 U/L (0-32) 03/07/22 17:58 ALT 25 U/L (0-33) 03/07/22 17:58 Alkaline Phosphatase 164 U/L (35-105) H 03/07/22 17:58 Total Protein 7.6 g/dL (6.6-8.7) 03/07/22 17:58 Albumin 3.8 g/dL (3.5-5.2) 03/07/22 17:58 Globulin 3.8 g/dL (1.3-4.6) 03/07/22 17:58 Influenza Type A Ag positive (Negative) H 03/07/22 20:00 Influenza Type B Ag negative (Negative) 03/07/22 20:00 SARS-CoV-2 Ag (Rapid) negative (Negative) 03/07/22 20:00 Discharge Plan Discharge Patient Disposition: Home Clinical Impression: Influenza A Condition: Stable Prescriptions: New dexamethasone 6 mg tablet 6 mg PO DAILY Qty: 5 0RF No Action Prolia 60 mg/mL syringe 60 mg SUBCUT .[id number] clobetasol 0.05 % cream 1 applic topical BID 14 Days Qty: 60 3RF Rx Instructions: Start BID to arms/legs x 2 wks alternating with triamcinolone triamcinolone acetonide 0.1 % cream 1 applic topical BID Qty: 453.6 1RF Rx Instructions: To arms,legs BID no more than 2 wks/mo alt with clobetasol mupirocin 2 % ointment 1 applic topical BID Qty: 22 1RF Rx Instructions: to arm until healed hydrocodone-acetaminophen 10-325 mg tablet 1 tab PO Q4H PRN (Reason: pain) 30 Days Qty: 130 0RF Rx Instructions: may fill 04/08 or thirty days after last refill hydrocodone-acetaminophen 10-325 mg tablet 1 tab PO Q4H PRN (Reason: pain) 30 Days Qty: 130 0RF Rx Instructions: may fill 05/07 or thirty days after last refill nifedipine 30 mg tablet extended release 24 hr 30 mg PO DAILY clonidine HCl 0.1 mg tablet 0.1 mg PO Q6H PRN (Reason: Blood Pressure) labetalol 200 mg tablet 400 mg PO TID MDD see pharmacy comment PRN (Reason: Blood Pressure) diazepam 5 mg tablet 5 mg PO BID PRN (Reason: Anxiety) Advair HFA 115-21 mcg/actuation HFA aerosol inhaler 2 inh INHALATION BID Qty: 12 0RF Renvela 800 mg tablet 800 mg PO TID amlodipine 10 mg tablet 10 mg PO DAILY Qty: 30 3RF Discharge Orders: Discharge ED (Routine); Ordered 03/07/22 Ordered By: Tip Jarvis Referrals: Erwin Layne MD [Primary Care Provider] - 1-3 days Activity Restrictions/Additional Instructions: Use the inhaler you were dispensed every 4 hours while awake for the next 48 hours, then as needed. Other medications as directed. Return for worsening shortness of breath despite treatment, continued fever despite treatment, other concerning symptoms Coding Level of Care Code ED Quality Systems Technician for Chg Fwd Exam Detailed Documented by User: Tip Jarvis DO 03/07/22 21:06 HPI - SOB/Dyspnea General: Chief Complaint: Shortness of Breath/Dyspnea Stated Complaint: fluid retention,SOB Time Seen by Provider: 03/07/22 17:24 PFS ED PFSH: Medical History (Updated 03/07/22 @ 21:04 by Tip Jarvis DO) Anemia in chronic kidney disease ESRD (end stage renal disease) on dialysis High risk medication use History of peritoneal dialysis Add Enterobacter followed by fungal peritonitis leading to PD catheter removal in 2012 Hypertension Immunization counseling 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 Some wire extrusion 4th digit associated with recurrent infection. History of right hip replacement History of total bilateral knee replacement Family History Father Rheumatoid arthritis Denies family history of Systemic lupus erythematosus, unspecified Diabetes Cancer Social History Smoking and tobacco status: never smoked Second hand smoke exposure: No Alcohol intake: never Current occupational status: retired History of recent travel: No Current gender identity: Female Course Vital Signs: Vital signs: Vital Signs Temperature 99.5 F 03/07/22 17:19 Pulse Rate 85 03/07/22 21:39 Respiratory Rate 22 H 03/07/22 21:39 Blood Pressure 143/83 03/07/22 17:19 Pulse Oximetry 91 03/07/22 21:39 Oxygen Delivery Me thod 03/07/22 21:16 Oxygen Flow Rate 2 03/07/22 21:16 MDM - SOB/Dyspnea Medical Decision Making Care signed out to Dr. Jarvis at change of shift. See final notes for diagnosis and disposition. 72-year-old dialysis patient checked out to me at shift change. She presents with shortness of breath. She has a low-grade temperature. This x-ray shows trace bilateral effusions without consolidation or pneumonia. Her electrolytes are stable room air saturations are above 92%. She has oxygen at home. She has a history of COPD. She is given steroids here. She would like to go home if possible. We will allow her home with Tamiflu x1 dose, then after every dialysis, scheduled albuterol for the next 48 hours, and prednisone. She knows to return for any worsening symptoms. She will go to dialysis next on Thursday. Lab Data 03/07/22 17:58 03/07/22 17:58 Labs/Radiology: Radiology Impressions Chest X-Ray 03/07/22 17:27 IMPRESSION: 1. Trace bilateral pleural effusions. 2. Cardiomegaly. 3. Emphysematous changes. 4. Right proximal humerus sclerotic bony lesion suggestive of an enchondroma or bone infarct, similar to prior exam. Laboratory Results WBC 5.2 10^3/uL (4.0-10.0) 03/07/22 17:58 RBC 3.39 10^6/uL (4.1-5.3) L 03/07/22 17:58 Hgb 10.3 g/dL (11.5-15.3) L 03/07/22 17:58 Hct 32.4 % (37.0-47.0) L 03/07/22 17:58 MCV 95.6 fl (81-99) 03/07/22 17:58 MCH 30.4 pg (28.0-34.0) 03/07/22 17:58 MCHC 31.8 g/dL (30.0-36.0) 03/07/22 17:58 RDW 15.4 % (12.1-15.1) H 03/07/22 17:58 Plt Count 195 10^3/cmm (130-400) 03/07/22 17:58 MPV 10.8 fL (7.4-10.4) H 03/07/22 17:58 Neut % (Auto) 71.8 % 03/07/22 17:58 Lymph % (Auto) 12.2 % 03/07/22 17:58 [place] % (Auto) 14.3 % 03/07/22 17:58 Eos % (Auto) 0.4 % 03/07/22 17:58 Baso % (Auto) 1.1 % 03/07/22 17:58 Neut # (Auto) 3.76 10^3/uL (1.8-7.7) 03/07/22 17:58 Lymph # (Auto) 0.6 10^3/uL (0.8-4.8) L 03/07/22 17:58 [place] # (Auto) 0.8 10^3/uL (0.2-0.9) 03/07/22 17:58 Eos # (Auto) 0.0 10^3/uL (0.0-0.8) 03/07/22 17:58 Baso # (Auto) 0.1 10^3/uL (0.0-0.1) 03/07/22 17:58 Nucleated RBC % (auto) 0 % 03/07/22 17:58 Nucleated RBCs # 0.0 /100WBC 03/07/22 17:58 Sodium 135 mmol/L (136-145) L 03/07/22 17:58 Potassium 3.5 mmol/L (3.5-5.1) 03/07/22 17:58 Chloride 91 mmol/L (98-107) L 03/07/22 17:58 Carbon Dioxide 30 mmol/L (22-29) H 03/07/22 17:58 Anion Gap 17.5 (5-19) 03/07/22 17:58 BUN 48 mg/dL (8-23) H 03/07/22 17:58 Creatinine 4.8 mg/dL (0.5-0.9) H 03/07/22 17:58 GFR Calculation Not Reportable 03/07/22 17:58 Glucose 92 mg/dL (65-115) 03/07/22 17:58 Calculated Osmolality 292 mOsm/kg (285-295) 03/07/22 17:58 Calcium 9.9 mg/dL (8.5-10.5) 03/07/22 17:58 Total Bilirubin 0.2 mg/dL (0.15-1.2) 03/07/22 17:58 AST 28 U/L (0-32) 03/07/22 17:58 ALT 25 U/L (0-33) 03/07/22 17:58 Alkaline Phosphatase 164 U/L (35-105) H 03/07/22 17:58 Total Protein 7.6 g/dL (6.6-8.7) 03/07/22 17:58 Albumin 3.8 g/dL (3.5-5.2) 03/07/22 17:58 Globulin 3.8 g/dL (1.3-4.6) 03/07/22 17:58 Influenza Type A Ag positive (Negative) H 03/07/22 20:00 Influenza Type B Ag negative (Negative) 03/07/22 20:00 SARS-CoV-2 Ag (Rapid) negative (Negative) 03/07/22 20:00 Discharge Plan Discharge Patient Disposition: Home Clinical Impression: Influenza A Condition: Stable Prescriptions: New dexamethasone 6 mg tablet 6 mg PO DAILY Qty: 5 0RF No Action Prolia 60 mg/mL syringe 60 mg SUBCUT .[id number] clobetasol 0.05 % cream 1 applic topical BID 14 Days Qty: 60 3RF Rx Instructions: Start BID to arms/legs x 2 wks alternating with triamcinolone triamcinolone acetonide 0.1 % cream 1 applic topical BID Qty: 453.6 1RF Rx Instructions: To arms,legs BID no more than 2 wks/mo alt with clobetasol mupirocin 2 % ointment 1 applic topical BID Qty: 22 1RF Rx Instructions: to arm until healed hydrocodone-acetaminophen 10-325 mg tablet 1 tab PO Q4H PRN (Reason: pain) 30 Days Qty: 130 0RF Rx Instructions: may fill 04/08 or thirty days after last refill hydrocodone-acetaminophen 10-325 mg tablet 1 tab PO Q4H PRN (Reason: pain) 30 Days Qty: 130 0RF Rx Instructions: may fill 05/07 or thirty days after last refill nifedipine 30 mg tablet extended release 24 hr 30 mg PO DAILY clonidine HCl 0.1 mg tablet 0.1 mg PO Q6H PRN (Reason: Blood Pressure) labetalol 200 mg tablet 400 mg PO TID MDD see pharmacy comment PRN (Reason: Blood Pressure) diazepam 5 mg tablet 5 mg PO BID PRN (Reason: Anxiety) Advair HFA 115-21 mcg/actuation HFA aerosol inhaler 2 inh INHALATION BID Qty: 12 0RF Renvela 800 mg tablet 800 mg PO TID amlodipine 10 mg tablet 10 mg PO DAILY Qty: 30 3RF Discharge Orders: Discharge ED (Routine); Ordered 03/07/22 Ordered By: Tip Jarvis Referrals: Erwin Layne MD [Primary Care Provider] - 1-3 days Activity Restrictions/Additional Instructions: Use the inhaler you were dispensed every 4 hours while awake for the next 48 hours, then as needed. Other medications as directed. Return for worsening shortness of breath despite treatment, continued fever despite treatment, other concerning symptoms Coding Level of Care Code ED Quality Systems Technician for Chg Fwd Exam Detailed
[2022-03-07] MEDS: albuterol 2.5 mg/3 mL Neb INHALATION (18:07)
[2022-03-07] MEDS: ipratropium 0.5 mg/2.5 mL Neb INHALATION (18:07)
[2022-03-07 18:19] LABS: Basophils # 0.1 10^3/uL (0.0-0.1); Basophils % 1.1 %; Eosinophils % 0.4 %; Hematocrit 32.4 % (37.0-47.0); Hemoglobin 10.3 g/dL (11.5-15.3); Lymphocytes # 0.6 10^3/uL (0.8-4.8); Lymphocytes % 12.2 %; Mean Corpuscular HGB Conc 31.8 g/dL (30.0-36.0); Mean Corpuscular Hemoglobin 30.4 pg (28.0-34.0); Mean Corpuscular Volume 95.6 fl (81-99); Mean Platelet Volume 10.8 fL (7.4-10.4); Monocytes # 0.8 10^3/uL (0.2-0.9); Monocytes % 14.3 %; Neutrophils # 3.76 10^3/uL (1.8-7.7); Neutrophils % 71.8 %; Nucleated Red Blood Cells % 0 %; Platelet Count 195 10^3/cmm (130-400); Red Blood Count 3.39 10^6/uL (4.1-5.3); Red Cell Distribution Width 15.4 % (12.1-15.1); White Blood Count 5.2 10^3/uL (4.0-10.0)
[2022-03-07 18:35] LABS: Alanine Aminotransferase 25 U/L (0-33); Albumin Level 3.8 g/dL (3.5-5.2); Alkaline Phosphatase 164 U/L (35-105); Anion Gap 17.5 (5-19); Aspartate Amino Transferase 28 U/L (0-32); Blood Urea Nitrogen 48 mg/dL (8-23); Calcium 9.9 mg/dL (8.5-10.5); Carbon Dioxide 30 mmol/L (22-29); Chloride 91 mmol/L (98-107); Globulin 3.8 g/dL (1.3-4.6); Glucose 92 mg/dL (65-115); Osmolality Calculated 292 mOsm/kg (285-295); Potassium 3.5 mmol/L (3.5-5.1); Sodium 135 mmol/L (136-145); Total Bilirubin 0.2 mg/dL (0.15-1.2); Total Protein 7.6 g/dL (6.6-8.7)
[2022-03-07 20:18] LABS: Influenza A by IFA positive (Negative); Influenza B by IFA negative (Negative)
[2022-03-07 20:30] LABS: SARS Covid-2 Antigen negative (Negative)
[2022-03-07] MEDS: albuterol 8 gm MDI 2 PUFF INHALATION (21:09)
== END 2022-03-07 21:09 | disposition home or self-care (01) ==
PROVIDERS: Family Medicine; Emergency Provider Emergency Medicine; PCP Family Medicine
DX: J10.1 Influenza due to other identified influenza virus with other respiratory manifestations (principal); Z20.822 Contact with and (suspected) exposure to COVID-19; I12.0 Hypertensive chronic kidney disease with stage 5 chronic kidney disease or end stage renal disease; N18.6 End stage renal disease; Z99.2 Dependence on renal dialysis; J44.9 Chronic obstructive pulmonary disease, unspecified
CPT/HCPCS: 36415; 71045; 80053; 85025; 87040; 87426; 87804; 93005; 94640; 96374; 99285; J2930; J3535; J7613; J7644

== ENCOUNTER → 2022-04-30 11:13 | Outpatient (BNVA) | payer MEDICARE, SELFPAY | PROVIDERS: PCP Family Medicine; Visit Provider Anesthesiology Pain Medicine | DX: M05.79 Rheumatoid arthritis with rheumatoid factor of multiple sites without organ or systems involvement (principal); M54.9 Dorsalgia, unspecified; M54.2 Cervicalgia; Z79.899 Other long term (current) drug therapy | CPT/HCPCS: 99213 ==

== ENCOUNTER 2022-05-05 11:10 | Oncology outpatient (recurring) (ONCR) | payer MEDICARE, SELFPAY ==
[2022-05-05 11:25] VITALS: BP 186/78; PULSE 82; RESP 20; TEMP 36.8; O2SAT 98
--- NOTE | 2022-05-05 11:26 | PC.NURSE ---
patient states she gets high BP after walking, going to dialysis after this shot and they monitor it
[2022-05-05] MEDS: denosumab 60 mg SDV SUBCUT (11:27)
== END 2022-05-09 23:59 | disposition home or self-care (01) ==
LOC: ONCMED 11:11
PROVIDERS: PCP Family Medicine; Visit Provider Internal Medicine Rheumatology
DX: M81.0 Age-related osteoporosis without current pathological fracture (principal)
CPT/HCPCS: 96372; J0897

== ENCOUNTER → 2022-05-29 14:02 | Outpatient (BNVA) | payer MEDICARE, SELFPAY | PROVIDERS: PCP Family Medicine; Visit Provider Podiatrist Foot & Ankle Surgery | DX: I73.9 Peripheral vascular disease, unspecified (principal); M20.41 Other hammer toe(s) (acquired), right foot; M20.42 Other hammer toe(s) (acquired), left foot; L60.3 Nail dystrophy; M21.41 Flat foot [pes planus] (acquired), right foot; M21.42 Flat foot [pes planus] (acquired), left foot | CPT/HCPCS: 11721 ==

== ENCOUNTER → 2022-07-07 17:55 | Outpatient (BNVA) | payer MEDICARE, SELFPAY | PROVIDERS: PCP Family Medicine; Visit Provider Family Medicine | DX: R05.9 Cough, unspecified (principal); J06.9 Acute upper respiratory infection, unspecified; N18.6 End stage renal disease; Z99.2 Dependence on renal dialysis; J30.2 Other seasonal allergic rhinitis | CPT/HCPCS: 87426 ==

== ENCOUNTER → 2022-07-16 10:46 | Outpatient (BNVA) | payer MEDICARE, SELFPAY | PROVIDERS: PCP Family Medicine; Visit Provider Anesthesiology Pain Medicine | DX: M05.79 Rheumatoid arthritis with rheumatoid factor of multiple sites without organ or systems involvement (principal); M54.9 Dorsalgia, unspecified; M54.2 Cervicalgia; D89.9 Disorder involving the immune mechanism, unspecified; Z79.899 Other long term (current) drug therapy | CPT/HCPCS: 99214 ==

== ENCOUNTER → 2022-08-06 11:18 | Outpatient (BNVA) | payer MEDICARE, SELFPAY | PROVIDERS: PCP Family Medicine; Visit Provider Anesthesiology Pain Medicine | DX: M05.79 Rheumatoid arthritis with rheumatoid factor of multiple sites without organ or systems involvement (principal); M54.2 Cervicalgia; M54.9 Dorsalgia, unspecified; Z79.899 Other long term (current) drug therapy | CPT/HCPCS: 99213 ==

== ENCOUNTER → 2022-08-14 15:34 | Outpatient (BNVA) | payer MEDICARE, SELFPAY | PROVIDERS: PCP Family Medicine; Visit Provider Podiatrist Foot & Ankle Surgery | DX: I73.9 Peripheral vascular disease, unspecified (principal); L60.8 Other nail disorders; L60.3 Nail dystrophy; M20.41 Other hammer toe(s) (acquired), right foot; M20.42 Other hammer toe(s) (acquired), left foot; M21.41 Flat foot [pes planus] (acquired), right foot; M21.42 Flat foot [pes planus] (acquired), left foot | CPT/HCPCS: 11721 ==

== ENCOUNTER → 2022-10-01 11:13 | Outpatient (BNVA) | payer MEDICARE, SELFPAY | PROVIDERS: PCP Family Medicine; Visit Provider Anesthesiology Pain Medicine | DX: M05.79 Rheumatoid arthritis with rheumatoid factor of multiple sites without organ or systems involvement (principal); M54.50 Low back pain, unspecified; M54.2 Cervicalgia; D89.9 Disorder involving the immune mechanism, unspecified; T84.7XXA Infection and inflammatory reaction due to other internal orthopedic prosthetic devices, implants and grafts, initial encounter; Z79.899 Other long term (current) drug therapy; X58.XXXA Exposure to other specified factors, initial encounter | CPT/HCPCS: 99213 ==

== ENCOUNTER → 2022-11-13 14:52 | Outpatient (BNVA) | payer MEDICARE, SELFPAY | PROVIDERS: PCP Family Medicine; Visit Provider Podiatrist Foot & Ankle Surgery | DX: L60.8 Other nail disorders (principal); I73.9 Peripheral vascular disease, unspecified; M20.41 Other hammer toe(s) (acquired), right foot; M20.42 Other hammer toe(s) (acquired), left foot; L60.3 Nail dystrophy; M21.41 Flat foot [pes planus] (acquired), right foot; M21.42 Flat foot [pes planus] (acquired), left foot | CPT/HCPCS: 11721 ==

== ENCOUNTER → 2022-11-17 17:59 | Outpatient (BNVA) | payer MEDICARE, SELFPAY | PROVIDERS: PCP Family Medicine; Visit Provider Family Medicine | DX: R05.9 Cough, unspecified (principal); I51.7 Cardiomegaly; I70.0 Atherosclerosis of aorta | CPT/HCPCS: 71046 ==

== ENCOUNTER 2022-11-19 10:07 | Oncology outpatient (recurring) (ONCR) | payer MEDICARE, SELFPAY ==
--- NOTE | 2022-11-19 10:25 | PC.NURSE ---
Called [facility] for pts most recent calcium level. Per Dora from [facility], pts calcium is 9.7.
[2022-11-19] MEDS: denosumab 60 mg SDV SUBCUT (10:35)
[2022-11-19 10:39] VITALS: BP 152/72; PULSE 83; RESP 16; TEMP 36.7; O2SAT 91
== END 2022-12-09 23:59 | disposition home or self-care (01) ==
PROVIDERS: PCP Family Medicine; Visit Provider Internal Medicine Rheumatology
DX: M81.0 Age-related osteoporosis without current pathological fracture (principal)
CPT/HCPCS: 96372; J0897

== ENCOUNTER 2023-01-12 19:11 | Outpatient (CLI) | payer MEDICARE, SELFPAY ==
--- NOTE | 2023-01-12 | XRR_ITS ---
PROCEDURE INFORMATION: Exam: XR Chest Exam date and time: 01/12/2023 7:43 PM Age: 72 years old Clinical indication: Shortness of breath; Additional info: SOB TECHNIQUE: Imaging protocol: Radiologic exam of the chest. Views: 2 views. COMPARISON: CR XR chest 2V* [id number] 11/17/2022 6:07 PM FINDINGS: Tubes, catheters and devices: Right-sided central venous catheter with tip over the right atrium. Lungs: Emphysematous changes. Bibasilar atelectasis versus infiltrate. Emphysematous changes. Pleural spaces: Trace bilateral pleural effusions. Heart/Mediastinum: Cardiomegaly. 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 XR/XR chest 2V* [id number] IMPRESSION: 1. 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 2. Cardiomegaly. 3. Emphysematous changes. 4. Trace bilateral pleural effusions. 5. Bibasilar atelectasis versus infiltrate. 6. Emphysematous changes. 7. Right-sided central venous catheter with tip over the right atrium.
== END 2023-01-12 19:12 | disposition home or self-care (01) ==
LOC: RAD 19:18
PROVIDERS: PCP Family Medicine
DX: J43.9 Emphysema, unspecified (principal); I51.7 Cardiomegaly; M89.9 Disorder of bone, unspecified; J90 Pleural effusion, not elsewhere classified; Z95.828 Presence of other vascular implants and grafts
CPT/HCPCS: 71046

== ENCOUNTER → 2023-01-29 14:57 | Outpatient (BNVA) | payer MEDICARE, SELFPAY | PROVIDERS: PCP Family Medicine; Visit Provider Podiatrist Foot & Ankle Surgery | DX: I73.9 Peripheral vascular disease, unspecified (principal); M20.41 Other hammer toe(s) (acquired), right foot; M20.42 Other hammer toe(s) (acquired), left foot; L60.3 Nail dystrophy; M21.41 Flat foot [pes planus] (acquired), right foot; M21.42 Flat foot [pes planus] (acquired), left foot | CPT/HCPCS: 11721 ==

== ENCOUNTER 2023-02-20 16:18 | Inpatient (IN) | payer MEDICARE, SELFPAY ==
[2023-02-20] VITALS (48 sets, daily range): BP systolic 70–123; BP diastolic 29–63; PULSE 65–94; RESP 10–37; TEMP 37.3–38.3; O2SAT 89–99; BMI 21.4
--- NOTE | 2023-02-20 16:28 | W.ED.SOB ---
HPI - SOB/Dyspnea General: Chief Complaint: Back Pain/Injury Stated Complaint: Coughing up blood/ Fever Time Seen by Provider: 02/20/23 16:28 History of Present Illness: HPI Narrative: 73-year-old female presents to the emergency department and is accompanied by her family member. The patient states that she has dialysis on Thursday and was sent from dialysis clinic after finishing her dialysis today for complaints of fever and right-sided back pain that occurred after having a coughing episode. She states her back pain is currently a sharp pain that is a 10 out of 10. She states that she has seen her primary care provider recently and received an increased dose of her hydrocodone which she took 1 hour prior to coming to the emergency department. She does endorse sick contacts recently. She states that her cough is a wet productive cough. Associated symptoms: Reports fever(s) Review of Systems General: Reports: 10 or more systems reviewed and unremarkable except in HPI and below Const: Reports: fever(s) Resp: Reports: productive cough Musc: Reports: back pain PFSH ED PFSH: Medical History Immunization counseling Seropositive rheumatoid arthritis of multiple sites rn long term care (current) use of opiate analgesic Pain management contract signed High risk medication use Seropositive rheumatoid arthritis Immunosuppression Obstructive sleep apnea intolerant of cpap Osteoporosis Anemia in chronic kidney disease History of peritoneal dialysis Add Enterobacter followed by fungal peritonitis leading to PD catheter removal in 2012 Secondary hyperparathyroidism (of renal origin) Hypertension Microscopic colitis on endocort ESRD (end stage renal disease) on dialysis Surgical History History of right hip replacement History of ankle surgery right fusion History of orthopedic surgery Left hand. Some wire extrusion 4th digit associated with recurrent infection. History of bilateral tubal ligation History of total bilateral knee replacement History of left-sided carotid endarterectomy History of cholecystectomy History of exploratory laparotomy For peritoneal dialysis catheter removal, also had lysis of adhesions Family History Father Rheumatoid arthritis Denies family history of Lupus (systemic lupus erythematosus) Diabetes Cancer Social History Smoking and tobacco/nicotine status: never used tobacco/nicotine Second hand smoke exposure: No Alcohol intake: never Substance/Drug Use: never Current occupational status: retired Do you think of yourself as: Straight/Heterosexual Current gender identity: Female Physical Exam Narrative: EXAM NARRATIVE: Constitutional: the patient appears well nourished and with normal development. Vital signs reviewed as documented. She does appear frail and thin. HENMT: Normocephalic, atraumatic. Extermal ears with normal appearance without drainage. Nose without drainage, normal appearance. Mucus membranes moist. Neck is supple, No jugular venous distension, trachea is midline, no appreciable carotid bruits. No lymphadenopathy. No meningeal signs. Flexion, extension and lateral rotation is without pain. Eyes: Pupils are equal, round, reactive to light and accommodation. No scleral icterus. Extra-ocular movement are intact. Thorax is symmetrical and with equal rise and fall with respirations. Resp: Coarse breath sounds throughout. No wheezes at present. Cardio: Regular rate and rhythm. Positive S1, S2. No appreciable murmurs, rubs or gallops. GI: Abdominal exam reveals normal bowel sounds to all quadrants. No organomegaly. No obvious palpable masses noted. No hepatomegally appreciated. Soft, nontender to palpation. Extremity: Extremities are non-edematous and both femoral and pedal pulses are 2+ and equal bilaterally. Moves all extremities well, sensation in all extremities. Patient does have longstanding history of rheumatoid arthritis and has significant ulnar deformity of her hands secondary to her rheumatoid arthritis. Patient does have a hemodialysis catheter in the right anterior chest. 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 She states she did have surgery to repair the aneurysm. Neuro: Alert and oriented x4, person, place, time and situation. Cranial nerves II through XII are grossly intact, there is no focal neurological deficits that I can appreciate at present. Motor strength in the upper and lower extremities are equal and bilateral 5/5. Psych: Cooperative, calm, normal thought process, appropriate judgment. Skin: No lesions, rashes. No gross abnormalities noted. Back: Symmetrical, no obvious deformity, No CVA tenderness Course Vital Signs: Vital signs: Vital Signs Temperature 100.9 F H 02/20/23 16:21 Pulse Rate 86 02/20/23 19:25 Respiratory Rate 26 H 02/20/23 19:25 Blood Pressure 105/50 02/20/23 19:25 Pulse Oximetry 96 02/20/23 19:25 Oxygen Delivery Me thod Nasal Cannula 02/20/23 18:04 Oxygen Flow Rate 2 02/20/23 18:04 MDM - SOB/Dyspnea Medical Decision Making 73-year-old female with a longstanding history of rheumatoid arthritis with end-stage renal disease on dialysis Thursday and Thursday presents with a fever and productive cough worse over the previous 24 hours. She endorses increased fatigue and malaise we will obtain a CBC, CMP, influenza and COVID screen. I will obtain blood cultures, procalcitonin and lactic acid as well as a chest x-ray for evaluation. Given the patient's complaints of back pain secondary to her coughing and her chronic immunosuppression from rheumatoid arthritis I am significantly concerned for pneumonia. Medical Records I reviewed the patient's medical records. Lab Data 02/20/23 17:07 02/20/23 17:07 Labs/Radiology: Radiology Impressions Chest X-Ray 02/20/23 16:29 IMPRESSION: Interval new area consolidated opacity laterally within the mid right lung from prior exam last month. This would favor acute consolidated infiltrate or pneumonia, though for follow-up with treatment. Laboratory Results WBC 16.05 10^3/uL (3.29-11.43) H 02/20/23 17:07 RBC 3.01 10^6/uL (3.85-5.65) L 02/20/23 17:07 Hgb 9.40 g/dL (11.27-16.99) L 02/20/23 17:07 Hct 29.1 % (36-47) L 02/20/23 17:07 MCV 96.7 fl (85-98) 02/20/23 17:07 MCH 31.2 pg (27-33) 02/20/23 17:07 MCHC 32.3 g/dL (30-55) 02/20/23 17:07 RDW 17.9 % (12.1-15.1) H 02/20/23 17:07 Plt Count 182 10^3/cmm (157-399) 02/20/23 17:07 MPV 10.0 fL (7.4-10.4) 02/20/23 17:07 Neut % (Auto) 89.8 % 02/20/23 17:07 Lymph % (Auto) 2.4 % 02/20/23 17:07 [place] % (Auto) 7.1 % 02/20/23 17:07 Eos % (Auto) 0.1 % 02/20/23 17:07 Baso % (Auto) 0.2 % 02/20/23 17:07 Neut # (Auto) 14.41 10^3/uL (1.8-7.7) H 02/20/23 17:07 Lymph # (Auto) 0.4 10^3/uL (0.8-4.8) L 02/20/23 17:07 [place] # (Auto) 1.1 10^3/uL (0.2-0.9) H 02/20/23 17:07 Eos # (Auto) 0.0 10^3/uL (0.0-0.8) 02/20/23 17:07 Baso # (Auto) 0.0 10^3/uL (0.0-0.1) 02/20/23 17:07 Nucleated RBC % (auto) 0 % 02/20/23 17:07 Nucleated RBCs # 0.0 /100WBC 02/20/23 17:07 PT 14.10 SECONDS (12.1-14.9) 02/20/23 17:07 INR 1.05 (0.8-1.2) 02/20/23 17:07 Sodium 139 mmol/L (136-145) 02/20/23 17:07 Potassium 3.8 mmol/L (3.5-5.1) 02/20/23 17:07 Chloride 94 mmol/L (98-107) L 02/20/23 17:07 Carbon Dioxide 31 mmol/L (22-29) H 02/20/23 17:07 Anion Gap 17.8 (5-19) 02/20/23 17:07 BUN 19 mg/dL (8-23) 02/20/23 17:07 Creatinine 2.4 mg/dL (0.5-0.9) H 02/20/23 17:07 GFR Calculation Not Reportable 02/20/23 17:07 Glucose 90 mg/dL (65-115) 02/20/23 17:07 Calculated Osmolality 290 mOsm/kg (285-295) 02/20/23 17:07 Lactic Acid 3.2 mmol/L (0.5-2.2) H 02/20/23 17:07 Lactic Acid (Sepsis) 2.5 mmol/L (0.5-2.2) H 02/20/23 17:43 Calcium 9.0 mg/dL (8.5-10.5) 02/20/23 17:07 Total Bilirubin 0.4 mg/dL (0.15-1.2) 02/20/23 17:07 AST 25 U/L (0-32) 02/20/23 17:07 ALT 14 U/L (0-33) 02/20/23 17:07 Alkaline Phosphatase 94 U/L (35-105) 02/20/23 17:07 Troponin T Baseline 218 ng/L (0-10) H* 02/20/23 17:07 NT-Pro-B Natriuret Pep > 99056 pg/mL (0-125) H 02/20/23 17:07 Total Protein 6.9 g/dL (6.6-8.7) 02/20/23 17:07 Albumin 4.0 g/dL (3.5-5.2) 02/20/23 17:07 Globulin 2.9 g/dL (1.3-4.6) 02/20/23 17:07 Procalcitonin 1.35 ng/mL (0-0.5) H 02/20/23 17:07 All radiology interpretation(s) finalized by discharge EKG Data EKG 1: Interpretation: Twelve-lead EKG obtained at 1654 and reviewed at 1654 demonstrates sinus rhythm with a first-degree AV block. Ventricular rate is 81 bpm, NM interval 279, QRS duration 95, QT 427, QTc 465. Patient does have inverted T waves noted in V3 1 and V2. There is currently no ST elevation or depression to demonstrate acute ischemia or infarction. 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
--- NOTE | 2023-02-20 16:29 | XRR_ITS ---
PROCEDURE INFORMATION: Exam: XR Chest Exam date and time: 02/20/2023 5:02 PM Age: 73 years old Clinical indication: Cough TECHNIQUE: Imaging protocol: Radiologic exam of the chest. Views: 1 view. COMPARISON: CR (CHEST, ) 01/12/2023 7:43 PM FINDINGS: Tubes, catheters and devices: Right-sided central venous catheter with tip at the expected level of the proximal right atrium. Lungs: Consolidated opacity seen laterally within the mid right lung, new from prior exam 01/12/2023. This would favor acute consolidated infiltrate or pneumonia, though requiring follow-up with treatment. No other infiltrate. Emphysematous change. Small benign calcified granuloma upper right lung. Pleural spaces: No significant effusion or pneumothorax. Heart/Mediastinum: Cardiomegaly. Mitral annular calcification. Vasculature: Arteriosclerosis of the thoracic aorta. Bones/joints: Chronic bony changes with prior exam. XR/XR chest 1V portable [id number] IMPRESSION: Interval new area consolidated opacity laterally within the mid right lung from prior exam last month. This would favor acute consolidated infiltrate or pneumonia, though for follow-up with treatment.
--- NOTE | 2023-02-20 16:54 | ECG_ITS ---
[facility] Test Date: 2023-02-20 Pat Name: Lady Woodward Department: Room: Gender: Female Linen Supervisor: : 1950 Requested By: Alex Mtz Order Number: [id number] Gary MD: Dali Farrell M.D. Measurements Intervals [place] Rate: 81 P: -5 GA: 279 QRS: 14 QRSD: 95 T: 64 QT: 427 QTc: 498 Interpretive Statements SINUS RHYTHM WITH FIRST DEGREE AV BLOCK LEFT VENTRICULAR HYPERTROPHY AND ST-T CHANGE [VOLTAGE CRITERIA PLUS ST/T ABNORMALITY] Compared to ECG 03/07/2022 17:42:46 First degree AV block now present Left ventricular hypertrophy now present ST (T wave) deviation now present Ectopic atrial rhythm no longer present Right-axis deviation no longer present Electronically Signed On 02-20-2023 18:13:26 PAN TANK WORKER by Dali Farrell M.D. [id number]
[2023-02-20 17:13] LABS: Basophils % 0.2 %; Eosinophils % 0.1 %; Hematocrit 29.1 % (36-47); Lymphocytes # 0.4 10^3/uL (0.8-4.8); Lymphocytes % 2.4 %; Mean Corpuscular HGB Conc 32.3 g/dL (30-55); Mean Corpuscular Hemoglobin 31.2 pg (27-33); Mean Corpuscular Volume 96.7 fl (85-98); Monocytes # 1.1 10^3/uL (0.2-0.9); Monocytes % 7.1 %; Neutrophils # 14.41 10^3/uL (1.8-7.7); Neutrophils % 89.8 %; Nucleated Red Blood Cells % 0 %; Platelet Count 182 10^3/cmm (157-399); Red Blood Count 3.01 10^6/uL (3.85-5.65); Red Cell Distribution Width 17.9 % (12.1-15.1); White Blood Count 16.05 10^3/uL (3.29-11.43)
[2023-02-20 17:28] LABS: INR 1.05 (0.8-1.2)
[2023-02-20 17:34] LABS: Lactic Sepsis W/Reflex 3.2 mmol/L (0.5-2.2)
[2023-02-20 17:39] LABS: Troponin(5th) Baseline 218 ng/L (0-10)
[2023-02-20] MEDS: sodium chloride 0.9% 1,000 ML 999 ML IV (18:30)
--- NOTE | 2023-02-20 18:30 | ECG_ITS ---
[facility] Test Date: 2023-02-20 Pat Name: Lady Woodward Department: Room: Gender: Female Actuary Clerk: : 1950 Requested By: Alex Mtz Order Number: [id number] Gary MD: Waqas Holley M.D. Measurements Intervals [place] Rate: 76 P: 57 MS: 216 QRS: 22 QRSD: 100 T: 58 QT: 460 QTc: 518 Interpretive Statements SINUS RHYTHM WITH FIRST DEGREE AV BLOCK POSSIBLE LEFT ATRIAL ENLARGEMENT [-0.1mV P-WAVE IN V1/V2] LEFT VENTRICULAR HYPERTROPHY AND ST-T CHANGE [VOLTAGE CRITERIA PLUS ST/T ABNORMALITY] Compared to ECG 02/20/2023 16:54:38 No significant changes Electronically Signed On 02-23-2023 8:06:06 PELLETISING EXTRUDER OPERATOR by Waqas Holley M.D. [id number]
[2023-02-20] MEDS: cefTRIAXone 2,000 MG in sodium chloride 0.9% (plus) 50 ML 100 MG IV (18:31)
[2023-02-20 18:33] LABS: Alanine Aminotransferase 14 U/L (0-33); Alkaline Phosphatase 94 U/L (35-105); Anion Gap 17.8 (5-19); Aspartate Amino Transferase 25 U/L (0-32); Blood Urea Nitrogen 19 mg/dL (8-23); Carbon Dioxide 31 mmol/L (22-29); Chloride 94 mmol/L (98-107); Globulin 2.9 g/dL (1.3-4.6); Glucose 90 mg/dL (65-115); Osmolality Calculated 290 mOsm/kg (285-295); Potassium 3.8 mmol/L (3.5-5.1); Procalcitonin 1.35 ng/mL (0-0.5); Sodium 139 mmol/L (136-145); Total Bilirubin 0.4 mg/dL (0.15-1.2); Total Protein 6.9 g/dL (6.6-8.7)
[2023-02-20 18:45] LABS: NT Pro B Type Natriuretic Pept > 35000 pg/mL (0-125)
--- NOTE | 2023-02-20 18:47 | PC.NURSE ---
Pt report given to Bette NAVA, pt stable with no current complaints or concerns.
[2023-02-20] MEDS: azithromycin 500 MG in sodium chloride 0.9% 250 ML 250 MG IV (18:55)
[2023-02-20 18:56] LABS: Reflex Lactate Order REFLEX LACTIC ORDERD
[2023-02-20 19:18] LABS: Lactic Acid level (Lactate) 2.5 mmol/L (0.5-2.2)
--- NOTE | 2023-02-20 19:50 | P.HP_ITS ---
Providers/Chief Complaint 2 Primary Care Provider: Erwin Layne MD Chief Complaint: Coughing up blood/ Fever History of Present Illness Lady Woodward is a 73 year old female with past medical history of incisional disease on hemodialysis, rheumatoid arthritis not on treatment, hypertension, anxiety, COPD on 1 to 2 L of oxygen at night. As per patient is also supposed to be on CPAP at night but she is noncompliant. She presents to the hospital from dialysis center after she developed cough with bloodstained expectoration. As per the patient has had cough on and off for last 1 month for which she has been on doxycycline on and off. Cough had gotten better better until 2 days ago and started getting worse again associated with expectoration. Patient complains of having fever up to 100 Fahrenheit in morning today. She is also been complaining of on and off chest pain. As per she did have cardiac angiogram few years ago which was reported normal. 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 In the ER she was found to have a right lower lobe pneumonia hence hospitalist service was consulted for further evaluation management. She has received 2 g of ceftriaxone and 500 mg of IV azithromycin for now. Examination patient lying comfortably in bed saturating 96% on 2 L of oxygen supplementation having persistent cough with a fever of 100.9 Fahrenheit. Review of Systems 2 General: Reports: 10 or more systems reviewed and unremarkable except in HPI and below Const: Denies: fever(s), chills, body aches, change in appetite, change in weight, malaise, night sweats, diaphoresis, change in sleep pattern, daytime sleepiness or snoring Eyes: Denies: change in vision, blurry vision, photophobia, eye discomfort or eye discharge ENMT: Denies: throat pain, enlarged tonsils, hoarseness, mouth pain, oral sores, dry mouth, tinnitus, nasal congestion or post nasal drip Card: Denies: chest pain, palpitations, irregular heart rhythm, edema, swelling of feet/ankles, lightheadedness, syncope, pre-syncope, dyspnea on exertion, orthopnea, leg pain with exertion or acrocyanosis Resp: Denies: dyspnea, productive cough, non-productive cough, wheezing, stridor, pain on inspiration, change in phlegm color, hemoptysis or chest congestion GI: Denies: abdominal pain, nausea, vomiting, hematemesis, coffee ground emesis, dysphagia, heartburn, diarrhea, constipation, bloating, GI cramping, change in bowel habits, pain on defecation, hematochezia or melena : Denies: flank pain, dysuria, urinary frequency, urinary urgency, urinary hesitancy, nocturia or hematuria Musc: Denies: neck pain, back pain, extremity pain, joint pain, joint swelling, joint redness, joint stiffness or limited range of motion Neuro: Denies: headache(s), numbness in extremities, weakness in extremities, sensory changes, lack of coordination, difficulty walking, frequent falls, dizziness, vertigo, confusion, Slurred speech present, difficulty communicating thoughts or seizure-like activity Psych: Denies: anxiety, depression, mood swings, panic attacks, hopelessness or irritability Endo: Denies: polyuria, polydipsia, tired all the time, cold intolerance, excessive sweating, flushing or heat intolerance Ben/Lymph: Denies: easy bruising or easy bleeding All/Imm: Denies: tongue swelling, facial swelling or acute wheezing Medications/Allergies Home Medications Medication Instructions Recorded Confirmed Last Taken Type clonidine HCl 0.1 mg tablet 0.1 mg PO Q6H PRN Blood Pressure 02/18/19 01/29/23 Unknown History diazepam 5 mg tablet 5 mg PO BID PRN Anxiety 02/18/19 01/29/23 02/17/19 History fluticasone propionate 115 2 inh inhalation BID #12 grams 02/24/19 01/29/23 Unknown Rx mcg-salmeterol 21 mcg/actuation HFA inhaler (Advair HFA) sevelamer carbonate 800 mg tablet 800 mg PO TID 06/06/19 01/29/23 01/27/21 History (Renvela) denosumab 60 mg/mL subcutaneous 60 mg SUBCUT .[id number] 11/24/19 01/29/23 Unknown History syringe (Prolia) clobetasol 0.05 % topical cream 1 applic topical BID 2 weeks #60 07/18/20 01/29/23 Unknown Rx grams mupirocin 2 % topical ointment 1 applic topical BID #22 grams 07/18/20 01/29/23 Unknown Rx triamcinolone acetonide 0.1 % 1 applic topical BID #453.6 grams 07/18/20 01/29/23 Unknown Rx topical cream nifedipine 30 mg tablet,extended 30 mg PO DAILY 10/30/21 01/29/23 Unknown History release 24 hr hydrocodone 10 mg-acetaminophen 1 tab PO Q4H PRN pain 30 days #130 10/01/22 01/29/23 Unknown Rx 325 mg tablet tabs hydrocodone 10 mg-acetaminophen 1 tab PO Q4H PRN pain 30 days #130 10/01/22 01/29/23 Unknown Rx 325 mg tablet tabs doxycycline hyclate 100 mg tablet 100 mg PO BID 7 days #14 tabs 01/12/23 01/29/23 Unknown Rx Allergies Allergy/AdvReac Type Severity Reaction Status Date / Time adhesive Allergy Unknown ALGY-Bliste Verified 02/20/23 16:32 r levofloxacin [From Levaquin] Allergy Unknown Unknown Verified 02/20/23 16:32 Sulfa (Sulfonamide Allergy Unknown Unknown Verified 02/20/23 16:32 Antibiotics) sulfamethoxazole Allergy Unknown Unknown Verified 02/20/23 16:32 [From Bactrim] tramadol Allergy Unknown Unknown Verified 02/20/23 16:32 trimethoprim [From Bactrim] Allergy Unknown Unknown Verified 02/20/23 16:32 codeine AdvReac Unknown ADR-Anxiety Verified 02/20/23 16:32 propoxyphene AdvReac Unknown ADR-Halluci Verified 02/20/23 16:32 nating PFSH Acute 2 PFSH: Medical History (Updated 02/20/23 @ 20:02 by Sudhir Guerrier MD) 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 Immunization counseling Seropositive rheumatoid arthritis of multiple sites assisted (current) use of opiate analgesic Pain management contract signed High risk medication use Seropositive rheumatoid arthritis Immunosuppression Obstructive sleep apnea intolerant of cpap Osteoporosis Anemia in chronic kidney disease History of peritoneal dialysis Add Enterobacter followed by fungal peritonitis leading to PD catheter removal in 2012 Secondary hyperparathyroidism (of renal origin) Hypertension Microscopic colitis on endocort ESRD (end stage renal disease) on dialysis Surgical History History of right hip replacement History of ankle surgery right fusion History of orthopedic surgery Left hand. Some wire extrusion 4th digit associated with recurrent infection. History of bilateral tubal ligation History of total bilateral knee replacement History of left-sided carotid endarterectomy History of cholecystectomy History of exploratory laparotomy For peritoneal dialysis catheter removal, also had lysis of adhesions Family History Father Rheumatoid arthritis Denies family history of Lupus (systemic lupus erythematosus) Diabetes Cancer Social History Smoking and tobacco/nicotine status: never used tobacco/nicotine Second hand smoke exposure: No Alcohol intake: never Substance/Drug Use: never Current occupational status: retired Do you think of yourself as: Straight/Heterosexual Current gender identity: Female Vitals/I&O/Wt Last Vital Signs Temp 100.9 F H 02/20/23 16:21 Pulse 86 02/20/23 19:25 Resp 26 H 02/20/23 19:25 BP 105/50 02/20/23 19:25 Pulse Ox 96 02/20/23 19:25 O2 Del Method Nasal Cannula 02/20/23 18:04 O2 Flow Rate 2 02/20/23 18:04 02/20/23 02/20/23 02/20/23 06:59 14:59 22:59 Intake Total 50 / 50 Balance 50 / 50 Weight last 48 hrs Weight 46.266 kg Physical Exam 2 Narrative: General: In distress because of cough, AO x 3, on 2 L oxygen supplementation HEENT: PERRLA, pupils bilaterally equal and reactive Chest: Bilateral bronchial breath sounds all over lung carter occasional rhonchi and coarse crackles mostly in the right lower zone CVS: S1-S2 regular, no murmurs, no tachycardia, no gallops, no rubs Abdomen: Soft, nontender, no organomegaly, bowel sounds present Neuro: No focal deficits, no facial deformity, AO x3, power 5/5 in all limbs Data 02/20/23 17:07 02/20/23 17:07 A&P Assessment and plan (1) Acute respiratory failure with hypoxia: Insetting of community-acquired pneumonia and mild CHF in setting of end-stage renal disease. Patient most likely has some component of COPD as well. Check CTA to rule out pulmonary embolism. Concern given bloodstained expectoration. DuoNebs every 6 hours, Pulmicort twice daily Ox supplementation being saturation over 90%. (2) Community acquired pneumonia: Check sputum culture, MRSA swab, blood culture, respiratory viral panel, urine Legionella, bacterial antigen, procalcitonin.. For now start patient on IV azithromycin, IV Zosyn and vancomycin. Will discontinue vancomycin if MRSA swab negative. Qualifiers: Laterality: right Lung location: unspecified part of lung Qualified Code(s): J18.9 - Pneumonia, unspecified organism (3) ESRD (end stage renal disease) on dialysis: On dialysis Thursday, Thursday, Thursday. Last dialysis on 02/20 but did not finish the session because of cough. Will consult nephrology for further recommendations. Patient most likely needs further dialysis given concerns for mild CHF. (4) Hypotension: As per the patient has chronic hypertension. Goal blood pressure less than 140/90 MAG with mean over 65. Continue monitor blood pressures regularly. Hold off on antihypertensives for now. (5) Elevated troponin: Most likely in setting of demand ischemia versus possible non-ST elevation TN. Check echocardiogram. Start on aspirin 81 mg daily. Check A1c, lipid panel. For now start patient on heparin drip. Plan Hemoptysis: Most likely in setting of cough leading to bronchitis. Checking CTA as above. Start on Tessalon Perles 200 mg every 8 hourly, Robitussin every 6 hours as needed. CODE STATUS: Discussed in detail with the patient and at bedside. will be the DPOA. Full code. Renal dialysis diet Heparin drip will suffice as DVT prophylaxis Protonix for PUD prophylaxis. Admit to ICU. Attestations 2 Medical Necessity Statement*: Admission 1-2 midnights for management of hypoxia in setting of community- acquired pneumonia, end-stage renal disease on hemodialysis, elevated troponins with concern for demand ischemia versus non-ST elevation TN Diagnoses Acute respiratory failure with hypoxia J96.01 Community acquired pneumonia J18.9 Laterality: right Lung location: unspecified part of lung ESRD (end stage renal disease) on dialysis N18.6; Z99.2 Hypotension I95.9 Elevated troponin R79.89
--- NOTE | 2023-02-20 19:55 | CTR_ITS ---
PROCEDURE INFORMATION: Exam: CTA Chest With Contrast Exam date and time: 02/20/2023 8:05 PM Age: 73 years old Clinical indication: Cough; Prior surgery; Surgery date: 6+ months; Surgery type: Dialysis cath; Patient HX: Hemoptysis with upper back pain. History of end stage renal disease. ; Additional info: Pna, SOB TECHNIQUE: Imaging protocol: Computed tomographic angiography of the chest with contrast. Exam focused on the arteries. 3D rendering (Not supervised by radiologist): MIP and/or 3D reconstructed images were created by the technologist. Radiation optimization: All CT scans at this facility use at least one of these dose optimization techniques: automated exposure control; mA and/or kV adjustment per patient size (includes targeted exams where dose is matched to clinical indication); or iterative reconstruction. Contrast material: OMNI 350; Contrast volume: 71 ml; Contrast route: INTRAVENOUS (IV); COMPARISON: CT chest [facility] [id number] 01/27/2021 6:56 PM RADIATION DOSE METRICS: Total DLP (mGy-cm): 300.6 FINDINGS: Pulmonary arteries: No hypodense filling defect is seen within the pulmonary arteries or their major branches to indicate pulmonary embolus. Aorta: Arteriosclerosis of the thoracic aorta with mild prominence of the ascending thoracic aorta. No findings to indicate dissection. Lungs: Calcified granuloma upper right lung. A large area of consolidated infiltrate is seen with partial air bronchograms about the posterior inferior upper right lung, mid to lateral mid right lung, and within the posterior right lung base. Component of atelectasis within the lung bases. No significant parapneumonic pleural effusion, though with suggestion of associated minimal or trace effusion right lung base. Mild bronchiectasis posterior left lung base. No pneumothorax. Central airways appear patent. Pleural spaces: See Lungs finding. Heart: Cardiomegaly. No pericardial effusion. Coronary artery calcification. Mitral annular calcification. Next right-sided central venous or dialysis catheter with tip extending just within the right atrium. Lymph nodes: No significant lymphadenopathy. Bones/joints: Thoracic kyphosis with several chronic compression deformities including severe compression deformity in a midthoracic vertebra and moderate compression deformity above and below this level. Suggestion of chronic old proximal to mid sternal fracture deformity. Soft tissues: Unremarkable. CT/CT angio chest PE protcl [id number] IMPRESSION: 1. No CT findings to indicate pulmonary embolus. 2. Large area of consolidated infiltrate with partial air bronchograms about the posterior inferior upper right lung and mid to lateral mid right lung, as well as posterior right lung base with minimal or trace right parapneumonic effusion. Basilar atelectasis. Follow-up with treatment recommended.
[2023-02-20] MEDS: iohexol 350 mg/mL 500 mL Btl (per mL) IV (20:09)
[2023-02-20 20:19] LABS: Procalcitonin 6.06 ng/mL (0-0.5)
[2023-02-20 20:44] LABS: Iron 22 ug/dL (37-145); Percent Saturation 13.5 % (20-50); Thyroid Stimulating Hormone 1.22 uIU/mL (0.27-4.20); Total Iron Binding Capacity 162 mcg/dl; Unsaturated Iron Binding 140 ug/dL (112-347)
[2023-02-20] MEDS: guaiFENesin-dextromethorphan UDC 10 mL 5 ML PO (20:44)
[2023-02-20] MEDS: benzonatate 100 mg Capsule 200 MG PO (20:44)
[2023-02-20] MEDS: heparin drip 25,000 UNIT/500 ML PREMIX 13 UNIT IV (21:21)
[2023-02-20] MEDS: norepinephrine 4 MG/250 ML BAG 7.5 MG IV (21:34)
[2023-02-20 21:37] LABS: Adenovirus Not Detected (NOT DETECT); Chlamydia Pneumoniae Not Detected (NOT DETECT); Coronavirus 229E,HKU1,NL63,OC4 Not Detected (NOT DETECT); Human Metapneumovirus Not Detected (NOT DETECT); Human Rhinovirus/Enterovirus Not Detected (NOT DETECT); Influenza A Not Detected (NOT DETECT); Influenza A H1 Not Detected (NOT DETECT); Influenza A H1-2009 Not Detected (NOT DETECT); Influenza A H3 Not Detected (NOT DETECT); Influenza B Not Detected (NOT DETECT); Mycoplasma Pneumoniae Not Detected (NOT DETECT); Parainfluenza Virus Type 1 Not Detected (NOT DETECT); Parainfluenza Virus Type 2 Not Detected (NOT DETECT); Parainfluenza Virus Type 3 Not Detected (NOT DETECT); Parainfluenza Virus Type 4 Not Detected (NOT DETECT); Respiratory Syncytial Virus A Not Detected (NOT DETECT); Respiratory Syncytial Virus B Not Detected (NOT DETECT); SARS-COV-2 Not Detected (NOT DETECT)
[2023-02-20 21:42] LABS: Vitamin B12 > 2000 pg/mL (232-1245)
[2023-02-20] MEDS: piperacillin-tazobactam 3.375 GM in sodium chloride 0.9% (plus) 50 ML IV (21:55)
[2023-02-20] MEDS: pantoprazole 40 mg SDV IVP (21:55)
[2023-02-20] MEDS: ipratropium-albuterol 3 mL Neb INHALATION (22:01)
[2023-02-20 22:31] LABS: ABG PCO2 44.7 mmHg (35-45); ABG PH Result 7.48 (7.35-7.45); Alveolar-Arterial Oxygen Gradi 11.5 mmHg (5-10); Arterial Blood Gas Hematocrit 27.5 % (37-47); Base Excess ABG 8.5 mmol/L (-2.0-2.0); Blood Gas Allen Test Pos; Blood Gas Sample Site Brachial, left; Blood Gas Sample Type Arterial; Carboxyhemoglobin 2.1 %THgb (0.4-20.1); HCO3 ABG 32.9 mmol/L (22-26); HGB O2 Sat 90.2 % (95-100); Ionized Calcium Level - ABG 1.1 mmol/L (1.1-1.4); Methemoglobin 0.2 % (0.4-1.5); Oxygen Device NC; Oxygen Saturation ABG 92.4; PO2 ABG 54.2 mmHg (80.0-100.0); PO2 FiO2 Ratio Arterial Blood 0; Potassium Level - ABG 3.6 mmol/L (3.5-5.0)
[2023-02-20] MEDS: vancomycin 500 MG in sodium chloride 0.9% (plus) 100 ML 200 MG IV (23:00)
[2023-02-20] MEDS: morphine 4 mg/mL SDV 1 mL 2 MG IVP (23:08)
--- NOTE | 2023-02-20 23:57 | PM.ACPR ---
Procedure/Consent Consent: Consent for Procedure: Consent obtained from patient Procedure Narrative: Central line placed due to need for multiple medications including pressors, heparin drip and iv abx, multiple blood draws. Poor peripheral access , Right arm fistula Acute Procedures Central Line Placement: Right Femoral: Time out performed: Yes Patient placed on monitor/pulse ox: Yes MD prep: mask, gown and gloves Central line prep: Povidone-Iodine 1%, Chlorhexidine scrub and sterile drapes applied Local anesthesia used: lidocaine 1% Amount of anesthesia used (ml): 4 Ultrasound used for placement: Yes Central line lumen inserted: triple Post procedure: sutured in place, good blood return, all ports aspirated, flushed, capped and sterile dressing applied Post procedure x-ray: other Patient tolerated procedure: well and no complications Complications: none
[2023-02-21] VITALS (209 sets, daily range): BP systolic 81–135; BP diastolic 38–74; PULSE 62–86; RESP 7–43; TEMP 36.6–37.5; O2SAT 94–100; BMI 21.6
[2023-02-21] MEDS: HYDROcodone-acetaminophen 10-325 mg Tablet 1 TAB PO (00:03)
[2023-02-21 00:23] LABS: Troponin 5 6HR 810.2 ng/L (0-10); Troponin 5 6HR Delta 592.2 ng/L (0-12)
--- NOTE | 2023-02-21 03:22 | PC.NURSE ---
Patient arrive on unit via stretcher. Patient coughing up pink frothy sputum on arrival. Patient complaining of back/neck pain 10/10. BP noted to be soft with MAP of 59. Recurrent BP continue to be low <55. Hospitalist notified and order for Levophed received. Patient has fistula in right arm limiting venous access. Hospitalist notified due to concerns for Heparin, Levophed, ABX running without central access. Consent obtained and Hospitalist placed right femoral triple lumen without complication. Patient pain treated with morphine and Independence.
[2023-02-21] MEDS: morphine 4 mg/mL SDV 1 mL 2 MG IVP (03:35)
[2023-02-21 04:37] LABS: Basophils # 0.1 10^3/uL (0.0-0.1); Basophils % 0.2 %; Eosinophils # 0.1 10^3/uL (0.0-0.8); Eosinophils % 0.2 %; Hematocrit 26.7 % (36-47); Lymphocytes # 1.5 10^3/uL (0.8-4.8); Lymphocytes % 5.6 %; Mean Corpuscular HGB Conc 31.5 g/dL (30-55); Mean Corpuscular Hemoglobin 30.9 pg (27-33); Mean Corpuscular Volume 98.2 fl (85-98); Mean Platelet Volume 10.5 fL (7.4-10.4); Monocytes # 1.6 10^3/uL (0.2-0.9); Monocytes % 6.1 %; Neutrophils # 23.31 10^3/uL (1.8-7.7); Nucleated Red Blood Cells % 0 %; Platelet Count 190 10^3/cmm (157-399); Red Blood Count 2.72 10^6/uL (3.85-5.65); Red Cell Distribution Width 18.2 % (12.1-15.1)
[2023-02-21 05:00] LABS: Procalcitonin 36.76 ng/mL (0-0.5)
[2023-02-21 05:01] LABS: Chol HDL Ratio 1.56 mg/dL (0.0-4.40); Cholesterol 128 mg/dL (0-200); HDL Cholesterol 82 mg/dL (60-100); LDL Cholesterol Calculated 39 mg/dL (50-129); LDL HDL Ratio 0.48 RATIO (0.00-3.22); Triglycerides 34 mg/dL (0-150)
[2023-02-21 05:02] LABS: Alanine Aminotransferase 14 U/L (0-33); Albumin Level 3.4 g/dL (3.5-5.2); Alkaline Phosphatase 77 U/L (35-105); Anion Gap 15.3 (5-19); Aspartate Amino Transferase 69 U/L (0-32); Blood Urea Nitrogen 24 mg/dL (8-23); Calcium 8.1 mg/dL (8.5-10.5); Carbon Dioxide 31 mmol/L (22-29); Chloride 97 mmol/L (98-107); Glucose 97 mg/dL (65-115); Magnesium 1.8 mg/dL (1.7-2.3); Osmolality Calculated 292 mOsm/kg (285-295); Phosphorus 2.6 mg/dL (2.5-4.5); Potassium 4.3 mmol/L (3.5-5.1); Sodium 139 mmol/L (136-145); Total Bilirubin 0.3 mg/dL (0.15-1.2); Total Protein 6.4 g/dL (6.6-8.7)
[2023-02-21 05:11] LABS: Estmated Average Glucose 88; Hemoglobin A1C 4.7 % (4.0-6.0)
[2023-02-21 05:16] LABS: Partial Thromboplastin Time 64.7 SECONDS (23.9-36.7)
[2023-02-21 05:39] LABS: Folate Level > 20.0 ng/mL (4.8-37.3)
[2023-02-21] MEDS: norepinephrine 4 MG/250 ML BAG 37.5 MG IV (05:41)
--- NOTE | 2023-02-21 06:00 | USCV_ITS ---
Lady Woodward Age: 73 Gender: F : 1950 Exam Date: 02/21/2023 10:31 Ordering Phys: Sudhir Guerrier MD Technologist: Stiven Triana Exam Location: [facility] [place] Indication: chf BP: 100 / 55 HR: 67 Rhythm: Sinus Technical Quality: Adequate MEASUREMENTS (Male / Female) Normal Values 2D ECHO LVOT Diameter 2.0 cm LA Diameter 4.3 cm LA Width 4.2 cm LA Height 4.9 cm RA Width 3.4 cm RA Height 3.5 cm Aorta at Sinotubular Diameter 2.2 cm IVC Diameter 2.3 cm M-MODE Aortic Annulus Diameter 2.0 cm LA Ao Ratio MM 2.1 MV E Point Septal Separation 0.5 cm DOPPLER AV Peak Velocity 263.5 cm/s LVOT Peak Velocity 104.0 cm/s AV Area Cont Eq vti 1.3 cm squared AV Area Cont Eq pk 1.3 cm squared MV Peak Velocity 214.0 cm/s MV Area PHT 2.9 cm squared Mitral E to A Ratio 1.5 MV E' Velocity 93.5 cm/s Mitral E to MV E' Ratio 23.8 Mitral E to LV E' Lateral Ratio 27.9 Mitral E to LV E' Septal Ratio 20.8 TR Peak Velocity 343.0 cm/s TR Peak Gradient 47.1 mmHg TR Mean Velocity 249.5 cm/s TR Mean Gradient 27.3 mmHg TR Velocity Time Integral 90.7 cm Right Atrial Pressure 15.0 mmHg Pulmonary Artery Systolic Pressu 62.1 mmHg PV Peak Velocity 134.0 cm/s RV Acceleration Time 0.1 s RV Ejection Time 0.2 s RV AcT/ET 0.3 FINDINGS Left Ventricle Normal left ventricular size, systolic function and wall thickness, with no regional wall motion abnormalities. Normal left ventricular wall thickness. Right Ventricle The right ventricle is normal in size and function. Right Atrium The right atrium is normal in size. Left Atrium The left atrium is mildly dilated Mitral Valve calcified mitral valve without significant stenosis or prolapse. There is severe mitral regurgitation. Aortic Valve calcified l aortic valve with mild to moderate stenosis. There is no aortic regurgitation. Tricuspid Valve Structurally normal tricuspid valve without significant stenosis . there is mild to moderate regurgitation. Pulmonary artery systolic pressure is moderateiy elevated Pulmonic Valve Structurally normal pulmonic valve without significant stenosis. There is no pulmonic regurgitation. Pericardium Normal pericardium without effusion. Aorta Normal ascending aorta dimension. IVC The inferior vena cava appears normal. CONCLUSIONS NL LVF Severe MR Mild t o moderate Moderate PHT Thania Murray MD (Electronically Signed) Final Date: 21 February 2023 12:45 S
[2023-02-21] MEDS: ipratropium-albuterol 3 mL Neb INHALATION ×3 (07:52→19:39)
[2023-02-21] MEDS: budesonide 0.5 mg/2 mL Neb INHALATION ×2 (07:52→19:39)
[2023-02-21] MEDS: benzonatate 100 mg Capsule 200 MG PO ×3 (08:29→21:38)
[2023-02-21] MEDS: piperacillin-tazobactam 3.375 GM in sodium chloride 0.9% (plus) 50 ML IV ×2 (08:29→21:39)
--- NOTE | 2023-02-21 11:53 | P.CONIM_ITS ---
Providers/Reason For Consult 2 Consulting Physician/Specialty*: [facility]/Nephrology Reason for Consult*: ESRD Attending Physician: Sudhir Guerrier MD Primary Care Provider: Erwin Layne MD History of Present Illness History of Present Illness Lady Woodward is a 73 year old female Patient is a 73-year-old female with past medical history of end-stage renal disease on dialysis per Thursday schedule, hypertension, COPD, anxiety was sent from the dialysis center due to worsening shortness of breath and cough. Patient was found to have right lower lobe pneumonia and was noted to be septic and admitted to ICU. Currently on low-dose pressors-Levophed at 4 mcg, and on 2 L nasal cannula. Lab data significant for white count of 16,000, hemoglobin of 9.4. Review of Systems 2 Narrative: OTHER ROS negative Medications/Allergies Home Medications Medication Instructions Recorded Confirmed Last Taken Type clonidine HCl 0.1 mg tablet 0.1 mg PO Q6H PRN Blood Pressure 02/18/19 02/21/23 Unknown History fluticasone propionate 115 2 inh inhalation BID #12 grams 02/24/19 02/21/23 Unknown Rx mcg-salmeterol 21 mcg/actuation HFA inhaler (Advair HFA) sevelamer carbonate 800 mg tablet 800 mg PO TID 06/06/19 02/21/23 01/27/21 History (Renvela) denosumab 60 mg/mL subcutaneous 60 mg SUBCUT .[id number] 11/24/19 02/21/23 Unknown History syringe (Prolia) clobetasol 0.05 % topical cream 1 applic topical BID 2 weeks #60 07/18/20 02/21/23 Unknown Rx grams mupirocin 2 % topical ointment 1 applic topical BID #22 grams 07/18/20 02/21/23 Unknown Rx triamcinolone acetonide 0.1 % 1 applic topical BID #453.6 grams 07/18/20 02/21/23 Unknown Rx topical cream nifedipine 30 mg tablet,extended 30 mg PO DAILY 10/30/21 02/21/23 Unknown History release 24 hr hydrocodone 10 mg-acetaminophen 1 tab PO Q4H PRN pain 30 days #130 10/01/22 02/21/23 Unknown Rx 325 mg tablet tabs alprazolam 0.5 mg tablet 0.5 mg PO DAILY 02/21/23 02/21/23 Unknown History amoxicillin 500 mg capsule 500 mg PO BID 02/21/23 02/21/23 Unknown History rosuvastatin 20 mg tablet 20 mg PO DAILY 02/21/23 02/21/23 Unknown History vit B,C-folic ac 800 mcg-zinc 12.5 1 tab PO DAILY 02/21/23 02/21/23 Unknown History mg-selen-D3 2,000 unit-vit E tablet (RenaPlex-D) Allergies Allergy/AdvReac Type Severity Reaction Status Date / Time adhesive Allergy Unknown ALGY-Bliste Verified 02/20/23 16:32 r levofloxacin [From Levaquin] Allergy Unknown Unknown Verified 02/20/23 16:32 Sulfa (Sulfonamide Allergy Unknown Unknown Verified 02/20/23 16:32 Antibiotics) sulfamethoxazole Allergy Unknown Unknown Verified 02/20/23 16:32 [From Bactrim] tramadol Allergy Unknown Unknown Verified 02/20/23 16:32 trimethoprim [From Bactrim] Allergy Unknown Unknown Verified 02/20/23 16:32 codeine AdvReac Unknown ADR-Anxiety Verified 02/20/23 16:32 propoxyphene AdvReac Unknown ADR-Halluci Verified 02/20/23 16:32 nating Current Medications Generic Name Dose Route Start Last Admin Trade Name Freq PRN Reason Stop Dose Admin Hydrocodone Bitart/Acetaminophen 1 tab 02/20/23 21:04 02/21/23 00:03 Hydrocodone-Acetaminophen 10-325 Mg Tablet PO 1 tab Q4H PRN Administration pain Albuterol/Ipratropium 3 ml 02/20/23 20:05 02/21/23 07:52 Ipratropium-Albuterol 3 Ml Neb INHALATION 3 ml Q6H.RESP VIVI Administration Benzonatate 200 mg 02/20/23 21:04 02/21/23 08:29 Benzonatate 100 Mg Capsule PO 200 mg TID VIVI Administration Budesonide 0.5 mg 02/20/23 20:05 02/21/23 07:52 Budesonide 0.5 Mg/2 Ml Neb INHALATION 0.5 mg BID.RESPIRATORY VIVI Administration Heparin Sodium/Sodium Chloride 25,000 unit in 500 mls @ 0 mls/hr 02/20/23 20:15 02/21/23 05:35 Heparin Drip IV 14.05 unit/kg/hr .Q0M VIVI 13 mls/hr Titration Protocol Per Protocol Piperacillin Sod/Tazobactam 50 mls @ 12.5 mls/hr 02/20/23 21:15 02/21/23 08:29 Sod 3.375 gm/ Sodium Chloride IV 12.5 mls/hr Q12H VIVI Administration Vancomycin HCl 500 mg/ Sodium 100 mls @ 200 mls/hr 02/20/23 22:00 02/21/23 01:08 Chloride IV Infused Q72H VIVI Infusion norepinephrine 4 mg in 250 mls @ 0 mls/hr 02/20/23 21:30 02/21/23 09:23 Levophed IV 6 mcg/min .Q0M VIVI 22.5 mls/hr Titration Protocol Per Protocol Morphine Sulfate 2 mg 02/20/23 21:04 02/21/23 03:35 Morphine 4 Mg/Ml Sdv 1 Ml IVP 2 mg Q4H PRN Administration SEVERE PAIN Pantoprazole Sodium 40 mg 02/20/23 21:04 02/20/23 21:55 Pantoprazole 40 Mg Sdv IVP 40 mg Q24H VIVI Administration PFSH Acute 2 PFSH: Medical History (Updated 02/20/23 @ 20:02 by Sudhir Guerrier MD) 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 Immunization counseling Seropositive rheumatoid arthritis of multiple sites 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 Some wire extrusion 4th digit associated with recurrent infection. History of bilateral tubal ligation History of total bilateral knee replacement History of left-sided carotid endarterectomy History of cholecystectomy History of exploratory laparotomy For peritoneal dialysis catheter removal, also had lysis of adhesions Family History Father Rheumatoid arthritis Denies family history of Lupus (systemic lupus erythematosus) Diabetes Cancer Social History Smoking and tobacco/nicotine status: never used tobacco/nicotine Second hand smoke exposure: No Alcohol intake: never Substance/Drug Use: never Current occupational status: retired Do you think of yourself as: Straight/Heterosexual Current gender identity: Female Vitals/I&O/Wt Last Vital Signs Temp 99.5 F 02/21/23 08:05 Pulse 76 02/21/23 08:45 Resp 19 H 02/21/23 08:45 BP 116/47 02/21/23 08:45 Pulse Ox 100 02/21/23 08:45 O2 Del Method Nasal Cannula 02/21/23 08:45 O2 Flow Rate 3 02/21/23 07:53 FiO2 28 02/21/23 01:16 02/20/23 02/21/23 02/21/23 22:59 06:59 14:59 Intake Total 302.25 / 302.25 530.658 / 832.908 252.625 / 252.625 Output Total 0 / 0 Balance 302.25 / 302.25 530.658 / 832.908 252.625 / 252.625 Weight last 48 hrs Weight 48.534 kg Weight 48.081 kg Weight 48.081 kg Weight 46.266 kg Physical Exam 2 Narrative: awake,alert no distress Data 02/21/23 03:33 02/21/23 03:33 A&P Assessment and plan (1) ESRD (end stage renal disease) on dialysis: Plan 1. End-stage renal disease: On dialysis per Thursday schedule, status post HD yesterday -Currently on 2 L nasal cannula and electrolytes stable, hold off on dialysis until patient off pressors unless O2 requirement rises 2. Anemia: Will order ELLE with dialysis 3. Sepsis secondary to pneumonia, on antibiotics per primary team on pressors. 4. History of COPD Patient evaluated using audiovisual cart. Time spent 40 minutes Consult Attestations 2 Medical Necessity Statement: per mediicne team Coding Level of Care Code Acute Code for Chg Fwd Diagnoses ESRD (end stage renal disease) on dialysis N18.6; Z99.2
[2023-02-21 12:39] LABS: Partial Thromboplastin Time 46.6 SECONDS (23.9-36.7)
--- NOTE | 2023-02-21 15:33 | P.PN_ITS ---
Subjective 2 Subjective: No acute events overnight. Patient has remained on Levophed to maintain mean artery pressure over 65. Currently on 6 of Levophed and heparin drip. Patient states she is feeling slightly better and cough has slightly decreased. Saturating 100% on 3 L of oxygen supplementation. Denies any chest pain. Tmax since admission 100.9 Fahrenheit yesterday afternoon. Vitals/I&O/Wt Last Vital Signs Temp 99.5 F 02/21/23 08:05 Pulse 81 02/21/23 14:20 Resp 18 02/21/23 13:38 BP 113/51 02/21/23 12:30 Pulse Ox 98 02/21/23 13:38 O2 Del Method Nasal Cannula 02/21/23 13:38 O2 Flow Rate 2 02/21/23 13:38 FiO2 28 02/21/23 01:16 02/21/23 02/21/23 02/21/23 06:59 14:59 22:59 Intake Total 530.658 / 832.908 635.558 / 635.558 Output Total 0 / 0 Balance 530.658 / 832.908 635.558 / 635.558 Weight last 48 hrs Weight 48.534 kg Weight 48.081 kg Weight 48.081 kg Weight 46.266 kg Physical Exam 2 Narrative: General: In distress because of cough, AO x 3, on 2 L oxygen supplementation HEENT: PERRLA, pupils bilaterally equal and reactive Chest: Bilateral bronchial breath sounds all over lung carter occasional rhonchi and coarse crackles mostly in the right lower zone CVS: S1-S2 regular, no murmurs, no tachycardia, no gallops, no rubs Abdomen: Soft, nontender, no organomegaly, bowel sounds present Neuro: No focal deficits, no facial deformity, AO x3, power 5/5 in all limbs Data 02/21/23 03:33 02/21/23 03:33 A&P Assessment and plan (1) Septic shock: Keep mean artery pressure over 60-65. Wean Levophed accordingly. Patient has a low body mass. Hold off on any IV fluids for now given history of end-stage renal disease on hemodialysis. Patient euvolemic for now. Galvan catheterization. (2) Acute respiratory failure with hypoxia: Insetting of community-acquired pneumonia and mild CHF in setting of end-stage renal disease. Patient most likely has some component of COPD as well. CTA chest results appreciated for no pulmonary embolism but a dense pneumonia in the right upper and middle lobe. Start patient on Solu-Medrol 40 mg IV every 8 hourly for now. Will wean rapidly. DuoNebs every 6 hours, Pulmicort twice daily Ox supplementation being saturation over 90%. (3) Community acquired pneumonia: Sputum culture received and pending, MRSA pending, urine Legionella and bacterial antigen not performed as no urine sample available. Follow-up blood cultures. Respiratory viral panel negative. Procalcitonin trending up. For now continue with IV Zosyn and vancomycin. Will discontinue vancomycin if MRSA swab negative. Qualifiers: Laterality: right Lung location: unspecified part of lung Qualified Code(s): J18.9 - Pneumonia, unspecified organism (4) ESRD (end stage renal disease) on dialysis: On dialysis Thursday, Thursday, Thursday. Last dialysis on 02/20 but did not finish the session because of cough. Will consult nephrology for further recommendations. Patient most likely needs further dialysis given concerns for mild CHF. (5) Elevated troponin: Most likely in setting of demand ischemia versus possible non-ST elevation AR. Echocardiogram shows a normal EF without regional wall motion abnormality, severe MR, mild to moderate and moderate pulmonary hypertension. Appreciate A1c, lipid panel. Continue with baby aspirin. Continue with heparin drip for now. Once patient has recovered from septic shock and pneumonia can plan for possible stress test. Remains chest pain-free for now. Plan CODE STATUS: Discussed in detail with the patient and at bedside. will be the DPOA. Full code. Renal dialysis diet Heparin drip will suffice as DVT prophylaxis Protonix for PUD prophylaxis. Attestations 2 Medical Necessity Statement*: Requires further hospitalization for management of septic shock in setting of right lung pneumonia, hypoxia in a patient with end-stage renal disease on hemodialysis Critical Care Time: The high probability of a clinically significant, sudden or life threatening deterioration of the patient's [pulmonary, ID, cardiac, renal] system(s) required my full and direct attention, intervention and personal management. The critical care time is as shown. This time is in addition to time spent performing any reported procedures but includes the following: [x] Data and vital sign review and interpretation [x] Patient assessment, examination and intervention [x] Documentation [x] Medication orders and management Coding Level of Care Code Critical Care >/= 30 minutes Critical care time (in minutes): 60 The high probability of a clinically significant, sudden or life threatening deterioration, as referenced in this documentation, required my full and direct attention, intervention and personal management. The critical care time shown is in addition to time spent performing any reported separately billable procedures and includes the following: [x] Data and vital sign review and interpretation [x ] Patient assessment, examination and intervention [x] Medication orders and management [x] Patient/Family updates as able [x] Care Coordination and Documentation. Other Coding Information This patient has a high probability of clinically significant, sudden or life threatening deterioration of the patient's (neurological/pulmonary/cardiac/renal/ID/endocrine) systems required my full, direct attention, the highest level of physician preparedness for urgent intervention and personal management. I managed/supervised life or organ supporting interventions that required frequent physician assessment. I devoted my full attention in the ICU to the direct care of this patient for the period of time indicated above. Time I spent with family or surrogate(s) is included only if the patient was incapable of providing necessary information or participating in decision making. This time includes the following services provided: Telemetry review Hemodynamic interpretation, assessment and management Review and interpretation of CXR Review and interpretation of lab values Review and interpretation of microbiologic data and culture results Review of medications and administration Review and interpretation of Nutrition requirements and management Discussion of management with other consultants and services Clinical update to family members Diagnoses Septic shock A41.9; R65.21 Acute respiratory failure with hypoxia J96.01 Community acquired pneumonia J18.9 Laterality: right Lung location: unspecified part of lung ESRD (end stage renal disease) on dialysis N18.6; Z99.2 Elevated troponin R79.89
[2023-02-21] MEDS: methylPREDNISolone sod succ 40 mg/mL INJ IVP (15:59)
--- NOTE | 2023-02-21 16:24 | PC.NURSE ---
Patient refused Galvan catheter placement, bladder scan revealed 0ml. Dr. Guerrier notified, verbal order to discontinue order for Galvan catheter.
[2023-02-21] MEDS: pantoprazole 40 mg SDV IVP (21:39)
[2023-02-22] VITALS (219 sets, daily range): BP systolic 91–183; BP diastolic 42–96; PULSE 57–101; RESP 13–40; TEMP 36.2–36.8; O2SAT 90–100
[2023-02-22] MEDS: methylPREDNISolone sod succ 40 mg/mL INJ IVP ×3 (00:03→18:05)
[2023-02-22 01:48] LABS: Partial Thromboplastin Time 58.8 SECONDS (23.9-36.7)
[2023-02-22] MEDS: ipratropium-albuterol 3 mL Neb INHALATION ×3 (02:31→19:45)
[2023-02-22] MEDS: HYDROcodone-acetaminophen 10-325 mg Tablet 1 TAB PO (04:21)
[2023-02-22] MEDS: guaiFENesin-dextromethorphan UDC 10 mL 5 ML PO (04:21)
[2023-02-22 04:31] LABS: Basophils % 0.2 %; Eosinophils # 0.2 10^3/uL (0.0-0.8); Hematocrit 26.9 % (36-47); Lymphocytes # 0.5 10^3/uL (0.8-4.8); Lymphocytes % 2.9 %; Mean Corpuscular HGB Conc 30.9 g/dL (30-55); Mean Corpuscular Volume 100.4 fl (85-98); Mean Platelet Volume 10.8 fL (7.4-10.4); Monocytes # 0.3 10^3/uL (0.2-0.9); Monocytes % 1.8 %; Neutrophils # 17.44 10^3/uL (1.8-7.7); Neutrophils % 93.1 %; Nucleated Red Blood Cells % 0 %; Platelet Count 162 10^3/cmm (157-399); Red Blood Count 2.68 10^6/uL (3.85-5.65); Red Cell Distribution Width 18.1 % (12.1-15.1); White Blood Count 18.73 10^3/uL (3.29-11.43)
[2023-02-22 04:50] LABS: Alanine Aminotransferase 24 U/L (0-33); Albumin Level 3.2 g/dL (3.5-5.2); Alkaline Phosphatase 87 U/L (35-105); Aspartate Amino Transferase 87 U/L (0-32); Blood Urea Nitrogen 43 mg/dL (8-23); Carbon Dioxide 27 mmol/L (22-29); Chloride 88 mmol/L (98-107); Globulin 3.4 g/dL (1.3-4.6); Glucose 134 mg/dL (65-115); Osmolality Calculated 279 mOsm/kg (285-295); Sodium 128 mmol/L (136-145); Total Bilirubin 0.2 mg/dL (0.15-1.2); Total Protein 6.6 g/dL (6.6-8.7)
--- NOTE | 2023-02-22 06:50 | PM.PN ---
Subjective Subjective: on 2 L NC Medications: Reviewed: Yes Vitals/I&O/Wt Last Vital Signs Temp 98.3 F 02/22/23 00:05 Pulse 72 02/22/23 06:00 Resp 26 H 02/22/23 04:30 BP 122/60 02/22/23 04:30 Pulse Ox 97 02/22/23 04:30 O2 Del Method Nasal Cannula 02/22/23 02:33 O2 Flow Rate 1 02/22/23 02:33 FiO2 28 02/21/23 01:16 02/21/23 02/21/23 02/22/23 14:59 22:59 06:59 Intake Total 635.558 / 635.558 181.433 / 816.991 200 / 1016.991 Output Total 0 / 0 0 / 0 Balance 635.558 / 635.558 181.433 / 816.991 200 / 1016.991 Weight last 48 hrs Weight 48.534 kg Weight 48.534 kg Weight 48.081 kg Weight 48.081 kg Weight 46.266 kg Physical Exam Narrative: awake,alert no distress Data 02/22/23 04:03 02/22/23 04:03 Micro: Microbiology 02/20/23 19:49 Gram Stain - Final Sputum - Expectorated Sputum Sputum Culture - Preliminary A&P Assessment and plan (1) ESRD (end stage renal disease) on dialysis: Plan 1. End-stage renal disease: On dialysis per Thursday schedule, pln for HD today due to volume overload -Currently on 2 L nasal cannula and electrolytes stable, hold off on dialysis until patient off pressors unless O2 requirement rises 2. Anemia: Will order ELLE with dialysis 3. Sepsis secondary to pneumonia, on antibiotics per primary team on pressors. 4. History of COPD Patient evaluated using audiovisual cart. Time spent 40 minutes Attestations Medical Necessity Statement*: per [facility] Coding Level of Care Code Acute Code for Chg Fwd Diagnoses ESRD (end stage renal disease) on dialysis N18.6; Z99.2
[2023-02-22 07:52] LABS: Partial Thromboplastin Time 53.2 SECONDS (23.9-36.7)
[2023-02-22] MEDS: budesonide 0.5 mg/2 mL Neb INHALATION ×2 (07:53→19:45)
[2023-02-22] MEDS: piperacillin-tazobactam 3.375 GM in sodium chloride 0.9% (plus) 50 ML IV ×2 (09:12→21:19)
[2023-02-22] MEDS: heparin 5,000 unit/mL INJ 1 mL IV (09:13)
[2023-02-22] MEDS: heparin drip 25,000 UNIT/500 ML PREMIX 17 UNIT IV (09:15)
[2023-02-22] MEDS: benzonatate 100 mg Capsule 200 MG PO ×3 (10:52→21:19)
[2023-02-22] MEDS: loperamide 2 mg Capsule PO ×2 (12:25→18:05)
[2023-02-22] MEDS: epoetin alfa 1000 Unit/0.05 mL (ESRD) 20000 UNIT IVP (14:25)
[2023-02-22] MEDS: albumin 12.5 GM/50 ML VIAL IV (14:26)
[2023-02-22 14:35] LABS: Hepatitis B Surface AB 556.1 (11.5-1000)
[2023-02-22 14:45] LABS: Partial Thromboplastin Time 102.4 SECONDS (23.9-36.7)
[2023-02-22 15:29] LABS: Hepatitis B Surface Antigen Non-Reactive (Nonreactive)
[2023-02-22] MEDS: heparin, porcine 1,000 unit/mL INJ 10 mL 10000 UNIT INTRACATH (16:45)
[2023-02-22] MEDS: heparin, porcine 1,000 unit/mL INJ 10 mL 1000 UNIT IV (16:45)
--- NOTE | 2023-02-22 18:47 | PC.NURSE ---
SHift SUmmary: Uneventful shift. Patient rested comfortably in bed for most of the day, but was up to a chair for about 3 hours. REceived dialysis today, had 2.5 liters removed. Started on immodium due to loose bowel movement. Currently on heparin drip, next PTT check is at 10pm
--- NOTE | 2023-02-22 18:51 | PC.HD ---
At treatment conclusion, heparin 2000 units and 2100 units were instilled into the arteriall and venous ports of HD catheter, respectively. In addition, per floor worker well service's orders heparin 500 units administered via HD circuit at 1445.
[2023-02-22] MEDS: pantoprazole 40 mg SDV IVP (21:19)
--- NOTE | 2023-02-22 22:52 | P.PN_ITS ---
Subjective 2 Subjective: Reports feeling very tired this morning. She denies any pain at this time. Has been sitting up some through the day. Medications: Reviewed: Yes Vitals/I&O/Wt Last Vital Signs Temp 97.5 F L 02/22/23 18:49 Pulse 80 02/22/23 22:00 Resp 22 H 02/22/23 22:00 BP 154/75 02/22/23 22:00 Pulse Ox 97 02/22/23 21:45 O2 Del Method Nasal Cannula 02/22/23 19:45 O2 Flow Rate 2 02/22/23 19:45 FiO2 28 02/21/23 01:16 02/22/23 02/22/23 02/22/23 06:59 14:59 22:59 Intake Total 250 / 1066.991 216.851 / 216.851 590.783 / 807.634 Output Total 1850 / 1850 Balance 250 / 1066.991 216.851 / 216.851 -1259.217 / -1042.366 Weight last 48 hrs Weight 104 lb 0.931 oz Weight 107 lb Weight 107 lb Weight 106 lb Physical Exam 2 Narrative: General: No acute distress. Is very tired appearing. HEENT: PERRLA, EOMI. Chest: Bilateral crackles scattered throughout the lung carter. CVS: Regular rate and rhythm, no murmurs gallops or rubs. Abdomen: Soft, nontender, nondistended, bowel sounds present Neuro: No focal motor or sensory deficits noted. Data 02/22/23 04:03 02/22/23 04:03 Micro: Microbiology 02/20/23 17:43 Blood Culture - Preliminary Blood 02/20/23 17:39 Blood Culture - Preliminary Blood 02/20/23 19:49 Gram Stain - Final Sputum - Expectorated Sputum Sputum Culture - Preliminary Coag positive Staphylococcus A&P Assessment and plan (1) Septic shock: (2) Acute respiratory failure with hypoxia: (3) Community acquired pneumonia: Sputum culture received and pending, MRSA pending, urine Legionella and bacterial antigen not performed as no urine sample available. Follow-up blood cultures. Respiratory viral panel negative. Procalcitonin trending up. For now continue with IV Zosyn and vancomycin. Will discontinue vancomycin if MRSA swab negative. Qualifiers: Laterality: right Lung location: unspecified part of lung Qualified Code(s): J18.9 - Pneumonia, unspecified organism (4) ESRD (end stage renal disease) on dialysis: On dialysis Thursday, Thursday, Thursday. Last dialysis on 02/20 but did not finish the session because of cough. Will consult nephrology for further recommendations. Patient most likely needs further dialysis given concerns for mild CHF. (5) Elevated troponin: Most likely in setting of demand ischemia versus possible non-ST elevation [place]. Echocardiogram shows a normal EF without regional wall motion abnormality, severe MR, mild to moderate and moderate pulmonary hypertension. Appreciate A1c, lipid panel. Continue with baby aspirin. Continue with heparin drip for now. Once patient has recovered from septic shock and pneumonia can plan for possible stress test. Remains chest pain-free for now. Plan Plan for today: Will continue close ICU monitoring for now. Will continue IV antibiotics: Vancomycin, Zosyn. Will continue Solu-Medrol at 40 mg Q8, and titrate as she improves. Will continue oxygen supplementation as needed. She is currently on 2 L. Blood pressures have improved and she is currently off of Levophed. Will continue to monitor at this time. Nephrology is consulted and is managing her dialysis. Will hold her home sevelamer for now. Sputum culture was positive for Staphylococcus. Blood cultures are currently negative to date. Continue heparin DVT prophylaxis. Protonix for GI prophylaxis. Recheck A.M. labs. Code Status: Full IVF: None DVT PPx: Heparin GI PPx: Tonics ABx: Vancomycin and Zosyn Diet: Renal dialysis Discharge plan: To be determined Attestations 2 Medical Necessity Statement*: Continue inpatient stay for management of hypoxia in setting of community- acquired pneumonia, end-stage renal disease on hemodialysis, elevated troponins with concern for demand ischemia versus non-ST elevation [place] Coding Level of Care Code Acute Code for Chg Fwd Moderate MDM includes number and complexity of problems actively addressed during encounter, amount and/or complexity of data reviewed/ordered and described risk of complication, morbidity or mortality of management as documented Diagnoses Septic shock A41.9; R65.21 Acute respiratory failure with hypoxia J96.01 Community acquired pneumonia J18.9 Laterality: right Lung location: unspecified part of lung ESRD (end stage renal disease) on dialysis N18.6; Z99.2 Elevated troponin R79.89
[2023-02-22 22:56] LABS: Partial Thromboplastin Time 55.2 SECONDS (23.9-36.7)
[2023-02-23] VITALS (29 sets, daily range): BP systolic 109–186; BP diastolic 55–78; PULSE 67–89; RESP 12–26; TEMP 36.4–36.7; O2SAT 97–100
[2023-02-23] MEDS: methylPREDNISolone sod succ 40 mg/mL INJ IVP ×4 (00:55→23:24)
[2023-02-23] MEDS: ipratropium-albuterol 3 mL Neb INHALATION ×2 (01:21→09:33)
[2023-02-23] MEDS: HYDROcodone-acetaminophen 10-325 mg Tablet 1 TAB PO ×2 (01:44→21:21)
[2023-02-23 06:03] LABS: Basophils % 0.1 %; Hematocrit 25.8 % (36-47); Lymphocytes # 0.4 10^3/uL (0.8-4.8); Lymphocytes % 4.1 %; Mean Corpuscular HGB Conc 31.8 g/dL (30-55); Mean Corpuscular Hemoglobin 30.9 pg (27-33); Mean Corpuscular Volume 97.4 fl (85-98); Mean Platelet Volume 10.5 fL (7.4-10.4); Monocytes # 0.3 10^3/uL (0.2-0.9); Monocytes % 2.8 %; Neutrophils # 9.16 10^3/uL (1.8-7.7); Neutrophils % 92.3 %; Nucleated Red Blood Cells % 0 %; Platelet Count 201 10^3/cmm (157-399); Red Blood Count 2.65 10^6/uL (3.85-5.65); White Blood Count 9.93 10^3/uL (3.29-11.43)
[2023-02-23 06:17] LABS: Partial Thromboplastin Time 45.5 SECONDS (23.9-36.7)
[2023-02-23] MEDS: heparin 5,000 unit/mL INJ 1 mL IV ×2 (06:32→22:00)
[2023-02-23 06:33] LABS: Alanine Aminotransferase 20 U/L (0-33); Albumin Level 3.3 g/dL (3.5-5.2); Alkaline Phosphatase 70 U/L (35-105); Anion Gap 16.3 (5-19); Aspartate Amino Transferase 46 U/L (0-32); Blood Urea Nitrogen 29 mg/dL (8-23); Calcium 8.3 mg/dL (8.5-10.5); Carbon Dioxide 29 mmol/L (22-29); Chloride 90 mmol/L (98-107); Globulin 3.4 g/dL (1.3-4.6); Glucose 132 mg/dL (65-115); Magnesium 1.9 mg/dL (1.7-2.3); Osmolality Calculated 280 mOsm/kg (285-295); Potassium 4.3 mmol/L (3.5-5.1); Sodium 131 mmol/L (136-145); Total Bilirubin 0.2 mg/dL (0.15-1.2); Total Protein 6.7 g/dL (6.6-8.7)
[2023-02-23] MEDS: piperacillin-tazobactam 3.375 GM in sodium chloride 0.9% (plus) 50 ML IV ×2 (08:30→21:20)
[2023-02-23] MEDS: loperamide 2 mg Capsule PO ×3 (08:31→21:21)
[2023-02-23] MEDS: epoetin alfa 1000 Unit/0.05 mL (ESRD) 20000 UNIT IVP (08:57)
[2023-02-23] MEDS: budesonide 0.5 mg/2 mL Neb INHALATION (09:32)
--- NOTE | 2023-02-23 11:55 | P.PN_ITS ---
Subjective 2 Subjective: c/o SOB s/p HD yesterday Medications: Reviewed: Yes Vitals/I&O/Wt Last Vital Signs Temp 98.1 F 02/23/23 09:46 Pulse 84 02/23/23 09:46 Resp 14 02/23/23 09:46 BP 142/76 02/23/23 09:46 Pulse Ox 99 02/23/23 09:46 O2 Del Method Nasal Cannula 02/23/23 08:00 O2 Flow Rate 2 02/23/23 08:00 FiO2 28 02/21/23 01:16 02/22/23 02/23/23 02/23/23 22:59 06:59 14:59 Intake Total 590.783 / 807.634 296.967 / 1104.601 120 / 120 Output Total 1850 / 1850 0 / 1850 Balance -1259.217 / -1042.366 296.967 / -745.399 120 / 120 Weight last 48 hrs Weight 47.2 kg Weight 48.534 kg Physical Exam 2 Narrative: awake,alert no distress Data 02/23/23 05:55 02/23/23 05:55 Micro: Microbiology 02/20/23 17:43 Blood Culture - Preliminary Blood 02/20/23 17:39 Blood Culture - Preliminary Blood 02/20/23 19:49 Gram Stain - Final Sputum - Expectorated Sputum Sputum Culture - Preliminary Coag positive Staphylococcus A&P Assessment and plan (1) ESRD (end stage renal disease) on dialysis: Plan 1. End-stage renal disease: On dialysis per Thursday schedule, s/p HD yesterday and again today dur to volume overload -Currently on 2 L nasal cannula and electrolytes stable, 2. Anemia: Will order ELLE with dialysis 3. Sepsis secondary to pneumonia, on antibiotics per primary team 4. History of COPD Patient evaluated using audiovisual cart. Time spent 40 minutes Attestations 2 Medical Necessity Statement*: per carlos Coding Level of Care Code Acute Code for Chg Fwd Diagnoses ESRD (end stage renal disease) on dialysis N18.6; Z99.2
--- NOTE | 2023-02-23 13:18 | P.PN_ITS ---
Subjective 2 Subjective: Seen this morning. Patient denies chest pain, shortness of breath. Vitals/I&O/Wt Last Vital Signs Temp 98.0 F 02/24/23 07:34 Pulse 83 02/24/23 11:48 Resp 16 02/24/23 11:48 BP 155/69 02/24/23 11:48 Pulse Ox 98 02/24/23 11:48 O2 Del Method Nasal Cannula 02/24/23 07:44 O2 Flow Rate 2 02/24/23 07:44 FiO2 28 02/21/23 01:16 02/23/23 02/24/23 02/24/23 22:59 06:59 14:59 Intake Total 422.25 / 592.25 264.933 / 857.183 480 / 480 Output Total 2500 / 2500 Balance -2077.75 / -1907.75 264.933 / -1642.817 480 / 480 Weight last 48 hrs Weight 49.169 kg Weight 47.2 kg Physical Exam 2 Narrative: General: No acute distress. sitting up in bed appearing comfortable HEENT: PERRLA, EOMI. Chest: Cta bilaterally CVS: Regular rate and rhythm, no murmurs gallops or rubs. Abdomen: Soft, nontender, nondistended, bowel sounds present Neuro: No focal motor or sensory deficits noted. Data 02/24/23 04:31 02/23/23 05:55 Micro: Microbiology 02/20/23 19:49 Gram Stain - Final Sputum - Expectorated Sputum Sputum Culture - Final Methicillin Resis Staph Aureus Streptococcus pneumoniae 02/23/23 23:25 Bacterial Antigens - Final Urine Kidney 02/23/23 23:25 Legionella Urinary Antigen - Final Unknown Source A&P Assessment and plan (1) Septic shock: (2) Acute respiratory failure with hypoxia: (3) Community acquired pneumonia: Sputum culture received and pending, MRSA pending, urine Legionella and bacterial antigen not performed as no urine sample available. Follow-up blood cultures. Respiratory viral panel negative. Procalcitonin trending up. For now continue with IV Zosyn and vancomycin. MRSA swb negative. Stop vancomycin Qualifiers: Laterality: right Lung location: unspecified part of lung Qualified Code(s): J18.9 - Pneumonia, unspecified organism (4) ESRD (end stage renal disease) on dialysis: On dialysis Thursday, Thursday, Thursday. Last dialysis on 02/20 but did not finish the session because of cough. Will consult nephrology for further recommendations. Patient most likely needs further dialysis given concerns for mild CHF. (5) Elevated troponin: Most likely in setting of demand ischemia versus possible non-ST elevation [place]. Echocardiogram shows a normal EF without regional wall motion abnormality, severe MR, mild to moderate and moderate pulmonary hypertension. Appreciate A1c, lipid panel. Continue with baby aspirin. Continue with heparin drip for now. Once patient has recovered from septic shock and pneumonia can plan for possible stress test. Remains chest pain-free for now. Plan Plan for today 02/23/23: Transfer to floor today Will continue IV antibiotics: Zosyn. Will continue Solu-Medrol at 40 mg Q8, and titrate as she improves. Will continue oxygen supplementation as needed. She is currently on 2 L. Blood pressures have improved and she is currently off of Levophed. Will continue to monitor at this time. Nephrology is consulted and is managing her dialysis. Will hold her home sevelamer for now. Sputum culture was positive for Staphylococcus. Blood cultures are currently negative to date. Continue heparin DVT prophylaxis. Protonix for GI prophylaxis. Recheck A.M. labs. Code Status: Full IVF: None DVT PPx: Heparin sub c GI PPx: Tonics ABx: Zosyn Diet: Renal dialysis Discharge plan: To be determined Attestations 2 Medical Necessity Statement*: Continue inpatient stay for management of hypoxia in setting of community- acquired pneumonia, end-stage renal disease on hemodialysis, elevated troponins with concern for demand ischemia versus non-ST elevation [place] Diagnoses Septic shock A41.9; R65.21 Acute respiratory failure with hypoxia J96.01 Community acquired pneumonia J18.9 Laterality: right Lung location: unspecified part of lung ESRD (end stage renal disease) on dialysis N18.6; Z99.2 Elevated troponin R79.89
[2023-02-23 13:38] LABS: Partial Thromboplastin Time 80.3 SECONDS (23.9-36.7)
[2023-02-23] MEDS: heparin, porcine 1,000 unit/mL INJ 10 mL 1000 UNIT IV (14:10)
[2023-02-23 16:09] LABS: Methicillin-Resist S.aureu PCR NOT DETECTED (NOT DETECTED)
--- NOTE | 2023-02-23 16:24 | PC.NURSE ---
Patient completed dialysis today with no reportable events. 2.5 liters off today. Yesterday patient had received dialysis as well and they were able to take 1.5L off making a total of 4L in total. Patient is resting in bed with even and unlabored breathing. Awaiting transfer to lower level of care. Pending bed availability per [facility].
[2023-02-23] MEDS: pantoprazole 40 mg SDV IVP (21:17)
[2023-02-23 21:45] LABS: Partial Thromboplastin Time 40.8 SECONDS (23.9-36.7)
[2023-02-23] MEDS: heparin drip 25,000 UNIT/500 ML PREMIX 16 UNIT IV (22:00)
[2023-02-23] MEDS: vancomycin 500 MG in sodium chloride 0.9% (plus) 100 ML 200 MG IV (22:36)
[2023-02-24] VITALS (12 sets, daily range): BP systolic 95–171; BP diastolic 67–78; PULSE 72–90; RESP 15–20; TEMP 36.4–36.7; O2SAT 93–100
[2023-02-24 04:42] LABS: Platelet Count 264 10^3/cmm (157-399)
[2023-02-24] MEDS: HYDROcodone-acetaminophen 10-325 mg Tablet 1 TAB PO ×2 (04:48→20:35)
[2023-02-24 04:51] LABS: Partial Thromboplastin Time 53.5 SECONDS (23.9-36.7)
[2023-02-24] MEDS: loperamide 2 mg Capsule PO (05:04)
[2023-02-24] MEDS: heparin 5,000 unit/mL INJ 1 mL IV (05:14)
[2023-02-24] MEDS: budesonide 0.5 mg/2 mL Neb INHALATION (07:39)
[2023-02-24] MEDS: ipratropium-albuterol 3 mL Neb INHALATION ×2 (07:39→13:47)
--- NOTE | 2023-02-24 09:00 | P.PN_ITS ---
Subjective 2 Subjective: no new c/o Medications: Reviewed: Yes Vitals/I&O/Wt Last Vital Signs Temp 98.0 F 02/24/23 07:34 Pulse 75 02/24/23 07:51 Resp 20 H 02/24/23 07:44 BP 95/73 02/24/23 07:34 Pulse Ox 99 02/24/23 07:44 O2 Del Method Nasal Cannula 02/24/23 07:44 O2 Flow Rate 2 02/24/23 07:44 FiO2 28 02/21/23 01:16 02/23/23 02/24/23 02/24/23 22:59 06:59 14:59 Intake Total 422.25 / 592.25 264.933 / 857.183 240 / 240 Output Total 2500 / 2500 Balance -2077.75 / -1907.75 264.933 / -1642.817 240 / 240 Weight last 48 hrs Weight 49.169 kg Weight 47.2 kg Physical Exam 2 Narrative: awake,alert no distress Data 02/24/23 04:31 02/23/23 05:55 Micro: Microbiology 02/23/23 23:25 Bacterial Antigens - Final Urine Kidney 02/23/23 23:25 Legionella Urinary Antigen - Final Unknown Source 02/20/23 19:49 Gram Stain - Final Sputum - Expectorated Sputum Sputum Culture - Preliminary Methicillin Resis Staph Aureus Streptococcus pneumoniae A&P Assessment and plan (1) ESRD (end stage renal disease) on dialysis: Plan 1. End-stage renal disease: On dialysis per Thursday schedule, s/p HD yesterday ,next HD tomorrow -Currently on 2 L nasal cannula and electrolytes stable, 2. Anemia: Will order ELLE with dialysis 3. Sepsis secondary to pneumonia, on antibiotics per primary team 4. History of COPD 5. Hypokalemia Patient evaluated using audiovisual cart. Time spent 40 minutes Attestations 2 Medical Necessity Statement*: per carlos Coding Level of Care Code Acute Code for Chg Fwd Diagnoses ESRD (end stage renal disease) on dialysis N18.6; Z99.2
[2023-02-24] MEDS: piperacillin-tazobactam 3.375 GM in sodium chloride 0.9% (plus) 50 ML IV ×2 (09:33→20:36)
[2023-02-24] MEDS: methylPREDNISolone sod succ 40 mg/mL INJ IVP ×2 (09:34→22:27)
[2023-02-24 11:59] LABS: Partial Thromboplastin Time 65.1 SECONDS (23.9-36.7)
--- NOTE | 2023-02-24 12:09 | PC.NURSE ---
pts aptt was 65.1, no change on heparin gtt
--- NOTE | 2023-02-24 13:25 | P.PN_ITS ---
Subjective 2 Subjective: Seen this morning. Patient denies chest pain, shortness of breath. Vitals are stable 155/69, pulse 73, respiratory 16, saturating 98% on 2 L nasal cannula. Vitals/I&O/Wt Last Vital Signs Temp 98.0 F 02/24/23 07:34 Pulse 83 02/24/23 11:48 Resp 16 02/24/23 11:48 BP 155/69 02/24/23 11:48 Pulse Ox 98 02/24/23 11:48 O2 Del Method Nasal Cannula 02/24/23 07:44 O2 Flow Rate 2 02/24/23 07:44 FiO2 28 02/21/23 01:16 02/23/23 02/24/23 02/24/23 22:59 06:59 14:59 Intake Total 422.25 / 592.25 264.933 / 857.183 480 / 480 Output Total 2500 / 2500 Balance -2077.75 / -1907.75 264.933 / -1642.817 480 / 480 Weight last 48 hrs Weight 49.169 kg Weight 47.2 kg Physical Exam 2 Narrative: General: No acute distress. sitting up in bed appearing comfortable HEENT: PERRLA, EOMI. Chest: Cta bilaterally CVS: Regular rate and rhythm, no murmurs gallops or rubs. Abdomen: Soft, nontender, nondistended, bowel sounds present Neuro: No focal motor or sensory deficits noted. Data 02/24/23 04:31 02/23/23 05:55 Micro: Microbiology 02/20/23 19:49 Gram Stain - Final Sputum - Expectorated Sputum Sputum Culture - Final Methicillin Resis Staph Aureus Streptococcus pneumoniae 02/23/23 23:25 Bacterial Antigens - Final Urine Kidney 02/23/23 23:25 Legionella Urinary Antigen - Final Unknown Source A&P Assessment and plan (1) Septic shock: (2) Acute respiratory failure with hypoxia: (3) Community acquired pneumonia: Sputum culture received and pending, MRSA pending, urine Legionella and bacterial antigen not performed as no urine sample available. Follow-up blood cultures. Respiratory viral panel negative. Procalcitonin trending up. on vanc and zosyn MRSA swb negative. Stop vancomycin Qualifiers: Laterality: right Lung location: unspecified part of lung Qualified Code(s): J18.9 - Pneumonia, unspecified organism (4) ESRD (end stage renal disease) on dialysis: On dialysis Thursday, Thursday, Thursday. Last dialysis on 02/20 but did not finish the session because of cough. Will consult nephrology for further recommendations. Patient most likely needs further dialysis given concerns for mild CHF. (5) Elevated troponin: Most likely in setting of demand ischemia versus possible non-ST elevation [place]. Echocardiogram shows a normal EF without regional wall motion abnormality, severe MR, mild to moderate and moderate pulmonary hypertension. Appreciate A1c, lipid panel. Continue with baby aspirin. Continue with heparin drip for now. Once patient has recovered from septic shock and pneumonia can plan for possible stress test. Remains chest pain-free for now. Plan Plan for today 02/24/23: Transfer to floor today Will continue IV antibiotics: stop zosyn and switch to levaquin. Strep pneumo is sensitive to levaquin. Solumedrol 40 q12h She is currently on 2 L. Blood pressures have improved and she is currently off of Levophed. Will continue to monitor at this time. Nephrology is consulted and is managing her dialysis. Will hold her home sevelamer for now. Sputum culture was positive for Strep pneumo. Blood cultures are currently negative to date. Continue heparin DVT prophylaxis. Protonix for GI prophylaxis. Recheck A.M. labs. Plan for stress test in AM. Stop heparin drip and switch to dvt ppx at this time. Discussed with cardiology over the phone Code Status: Full IVF: None DVT PPx: Heparin sub c GI PPx: Tonics ABx: levaquin Diet: Renal dialysis Discharge plan: To be determined Attestations 2 Medical Necessity Statement*: Continue inpatient stay for management of hypoxia in setting of community- acquired pneumonia, end-stage renal disease on hemodialysis, elevated troponins with concern for demand ischemia versus non-ST elevation [place] Diagnoses Septic shock A41.9; R65.21 Acute respiratory failure with hypoxia J96.01 Community acquired pneumonia J18.9 Laterality: right Lung location: unspecified part of lung ESRD (end stage renal disease) on dialysis N18.6; Z99.2 Elevated troponin R79.89
--- NOTE | 2023-02-24 17:13 | PC.NURSE ---
Addendum entered by Aaron Ortiz RN 02/24/23 18:01: pts brought in virgil, stated, i know how to manage her diet, we manage it at home. educ pt and on the importance of sticking to the renal dialysis diet that the dr ordered. Original Note: pts refuses for pt to eat the diet that is ordered.
[2023-02-24 18:57] LABS: Partial Thromboplastin Time 56.7 SECONDS (23.9-36.7)
[2023-02-24] MEDS: benzonatate 100 mg Capsule 200 MG PO (20:35)
[2023-02-24] MEDS: pantoprazole 40 mg SDV IVP (22:27)
[2023-02-25] VITALS (7 sets, daily range): BP systolic 131–187; BP diastolic 62–87; PULSE 75–92; RESP 15–17; TEMP 36.5–37; O2SAT 93–96
[2023-02-25] MEDS: HYDROcodone-acetaminophen 10-325 mg Tablet 1 TAB PO ×2 (03:21→11:33)
[2023-02-25 05:24] LABS: Basophils % 0.3 %; Hematocrit 29.1 % (36-47); Lymphocytes # 0.5 10^3/uL (0.8-4.8); Lymphocytes % 5.8 %; Mean Corpuscular HGB Conc 31.3 g/dL (30-55); Mean Corpuscular Hemoglobin 30.8 pg (27-33); Mean Corpuscular Volume 98.6 fl (85-98); Mean Platelet Volume 10.8 fL (7.4-10.4); Monocytes # 0.5 10^3/uL (0.2-0.9); Monocytes % 6.2 %; Neutrophils # 7.34 10^3/uL (1.8-7.7); Neutrophils % 85.6 %; Nucleated Red Blood Cells # 0.2 /100WBC; Nucleated Red Blood Cells % 2.4 %; Platelet Count 304 10^3/cmm (157-399); Red Blood Count 2.95 10^6/uL (3.85-5.65); Red Cell Distribution Width 17.7 % (12.1-15.1); White Blood Count 8.58 10^3/uL (3.29-11.43)
[2023-02-25 05:48] LABS: Vancomycin Random 10.9 ug/mL (20.0-40.0)
[2023-02-25 05:57] LABS: Blood Urea Nitrogen 63 mg/dL (8-23); Calcium 8.3 mg/dL (8.5-10.5); Carbon Dioxide 24 mmol/L (22-29); Chloride 96 mmol/L (98-107); Glucose 135 mg/dL (65-115); Osmolality Calculated 304 mOsm/kg (285-295); Sodium 137 mmol/L (136-145)
[2023-02-25 05:58] LABS: Anion Gap 21.1 (5-19); Potassium 4.1 mmol/L (3.5-5.1)
--- NOTE | 2023-02-25 06:17 | SUR.PREOP ---
PRE STRESS NOTE Patient had a chocolate bar at 3 am today. Stress postponed until tomorrow d/t caffeine intake. Floor notified.
[2023-02-25] MEDS: epoetin alfa 1000 Unit/0.05 mL (ESRD) 20000 UNIT IVP (08:46)
[2023-02-25] MEDS: heparin, porcine 1,000 unit/mL INJ 10 mL 10000 UNIT INTRACATH (08:46)
[2023-02-25] MEDS: heparin, porcine 1,000 unit/mL INJ 10 mL 1000 UNIT IV (08:48)
[2023-02-25] MEDS: methylPREDNISolone sod succ 40 mg/mL INJ IVP (10:35)
[2023-02-25] MEDS: piperacillin-tazobactam 3.375 GM in sodium chloride 0.9% (plus) 50 ML IV (10:35)
--- NOTE | 2023-02-25 10:45 | P.PN_ITS ---
Subjective 2 Subjective: no new c/o Medications: Reviewed: Yes Vitals/I&O/Wt Last Vital Signs Temp 97.9 F 02/25/23 04:00 Pulse 92 02/25/23 06:00 Resp 17 02/25/23 04:00 BP 175/84 02/25/23 04:00 Pulse Ox 94 02/25/23 04:00 O2 Del Method Nasal Cannula 02/24/23 16:00 O2 Flow Rate 2 02/24/23 13:49 FiO2 28 02/21/23 01:16 02/24/23 02/25/23 02/25/23 22:59 06:59 14:59 Intake Total 530 / 1010 50 / 1060 Balance 530 / 1010 50 / 1060 Weight last 48 hrs Weight 50.394 kg Weight 49.169 kg Physical Exam 2 Narrative: awake,alert no distress Data 02/25/23 04:34 02/25/23 04:34 Micro: Microbiology 02/20/23 17:43 Blood Culture - Preliminary Blood 02/20/23 19:49 Gram Stain - Final Sputum - Expectorated Sputum Sputum Culture - Final Methicillin Resis Staph Aureus Streptococcus pneumoniae 02/23/23 23:25 Bacterial Antigens - Final Urine Kidney A&P Assessment and plan (1) ESRD (end stage renal disease) on dialysis: (2) Elevated troponin: (3) High risk medication use: Plan 1. End-stage renal disease: On dialysis per Thursday schedule, hd today -Currently on 2 L nasal cannula and electrolytes stable, 2. Anemia: Will order ELLE with dialysis 3. Sepsis secondary to pneumonia, on antibiotics per primary team 4. History of COPD 5. Hypokalemia Patient evaluated using audiovisual cart. Time spent 20 minutes Attestations 2 Medical Necessity Statement*: per medicine Coding Level of Care Code Acute Code for Chg Fwd Diagnoses ESRD (end stage renal disease) on dialysis N18.6; Z99.2 Elevated troponin R79.89 High risk medication use Z79.899
--- NOTE | 2023-02-25 11:31 | PC.SOCIAL ---
IMM Update pg 2 of IMM updated and reviewed w/ patient. Copy provided and copy dated, initialed and placed in chart.
[2023-02-25] MEDS: NIFEdipine ER (24 hr) 30 mg Tablet PO (12:48)
[2023-02-25] MEDS: hyDRALAzine 20 mg/mL INJ 1 mL 10 MG IVP (12:48)
--- NOTE | 2023-02-25 14:18 | P.PN_ITS ---
Subjective 2 Subjective: Unable to complete stress test today as patient ate. She was reminded several times overnight by the nursing staff to be n.p.o. at midnight however patient ate cake middle of the night and early this morning as well. Cake was brought in by her family as per nursing staff. I discussed this with the patient and she does not seem to remember any of this. I will try to reach out to family. Vitals/I&O/Wt Last Vital Signs Temp 98.6 F 02/25/23 11:42 Pulse 89 02/25/23 11:42 Resp 15 02/25/23 11:42 BP 152/62 02/25/23 13:49 Pulse Ox 93 02/25/23 11:42 O2 Del Method Room Air 02/25/23 11:42 O2 Flow Rate 2 02/24/23 13:49 FiO2 28 02/21/23 01:16 02/24/23 02/25/23 02/25/23 22:59 06:59 14:59 Intake Total 530 / 1010 50 / 1060 480 / 480 Balance 530 / 1010 50 / 1060 480 / 480 Weight last 48 hrs Weight 50.394 kg Weight 49.169 kg Physical Exam 2 Narrative: General: No acute distress. sitting up in bed appearing comfortable HEENT: PERRLA, EOMI. Chest: Cta bilaterally. Seen in dialysis. Appears comfortable at this time. CVS: Regular rate and rhythm, no murmurs gallops or rubs. Abdomen: Soft, nontender, nondistended, bowel sounds present Neuro: No focal motor or sensory deficits noted. Data 02/25/23 04:34 02/25/23 04:34 Micro: Microbiology 02/20/23 17:43 Blood Culture - Preliminary Blood 02/20/23 19:49 Gram Stain - Final Sputum - Expectorated Sputum Sputum Culture - Final Methicillin Resis Staph Aureus Streptococcus pneumoniae 02/23/23 23:25 Bacterial Antigens - Final Urine Kidney A&P Assessment and plan (1) Septic shock: (2) Acute respiratory failure with hypoxia: (3) Community acquired pneumonia: Sputum culture received and pending, MRSA pending, urine Legionella and bacterial antigen not performed as no urine sample available. Follow-up blood cultures. Respiratory viral panel negative. Procalcitonin trending up. on vanc and zosyn MRSA swb negative. Stop vancomycin Qualifiers: Laterality: right Lung location: unspecified part of lung Qualified Code(s): J18.9 - Pneumonia, unspecified organism (4) ESRD (end stage renal disease) on dialysis: On dialysis Thursday, Thursday, Thursday. Last dialysis on 02/20 but did not finish the session because of cough. Will consult nephrology for further recommendations. Patient most likely needs further dialysis given concerns for mild CHF. (5) Elevated troponin: Most likely in setting of demand ischemia versus possible non-ST elevation [place]. Echocardiogram shows a normal EF without regional wall motion abnormality, severe MR, mild to moderate and moderate pulmonary hypertension. Appreciate A1c, lipid panel. Continue with baby aspirin. Continue with heparin drip for now. Once patient has recovered from septic shock and pneumonia can plan for possible stress test. Remains chest pain-free for now. Plan Plan for today 02/25/23: Transfer to floor today Will continue IV antibiotics: Continue Levaquin.. Strep pneumo is sensitive to levaquin. Solumedrol 40 q24h She is currently on 2 L. Blood pressures have improved and she is currently off of Levophed. Will continue to monitor at this time. Nephrology is consulted and is managing her dialysis. Will hold her home sevelamer for now. Sputum culture was positive for Strep pneumo. Blood cultures are currently negative to date. Continue heparin DVT prophylaxis. Protonix for GI prophylaxis. Recheck A.M. labs. Plan for stress test in AM. Stop heparin drip and switch to dvt ppx at this time. Discussed with cardiology over the phone. Patient was unable to complete stress test. She is chest pain-free. I will discuss with family. We may go ahead and medically manage the patient at this time. As per nursing staff she has been noncompliant in the past as well. I will talk to her family and we may opt to medically manage at this time and discharge patient home. She may follow-up with cardiology as an outpatient. Code Status: Full IVF: None DVT PPx: Heparin sub c GI PPx: Tonics ABx: levaquin Diet: Renal dialysis Discharge plan: To be determined Attestations 2 Medical Necessity Statement*: Continue inpatient stay for management of hypoxia in setting of community- acquired pneumonia, end-stage renal disease on hemodialysis, elevated troponins with concern for demand ischemia versus non-ST elevation [place] Diagnoses Septic shock A41.9; R65.21 Acute respiratory failure with hypoxia J96.01 Community acquired pneumonia J18.9 Laterality: right Lung location: unspecified part of lung ESRD (end stage renal disease) on dialysis N18.6; Z99.2 Elevated troponin R79.89
--- NOTE | 2023-02-25 14:33 | P.DS_ITS ---
Discharge Providers Date of Admission: 02/20/23 20:44 Date of Discharge: February 25, 2023 Attending Provider at Admission: Jillian Ramirez MD Attending Provider at Discharge: Mandy Valadez MD Primary Care Provider: Erwin Layne MD Diagnoses at Discharge Discharge Diagnosis (1) Septic shock: Status: Acute (2) Acute respiratory failure with hypoxia: Status: Acute (3) Community acquired pneumonia: Status: Acute Qualifiers: Laterality: right Lung location: unspecified part of lung Qualified Code(s): J18.9 - Pneumonia, unspecified organism (4) ESRD (end stage renal disease) on dialysis: Status: Acute (5) Elevated troponin: Status: Acute Reason for Visit Reason for Visit: Coughing up blood/ Fever Brief History: Lady Woodward is a 73 year old female with past medical history of incisional disease on hemodialysis, rheumatoid arthritis not on treatment, hypertension, anxiety, COPD on 1 to 2 L of oxygen at night. As per patient is also supposed to be on CPAP at night but she is noncompliant. She presents to the hospital from dialysis center after she developed cough with bloodstained expectoration. As per the patient has had cough on and off for last 1 month for which she has been on doxycycline on and off. Cough had gotten better better until 2 days ago and started getting worse again associated with expectoration. Patient complains of having fever up to 100 Fahrenheit in morning today. She is also been complaining of on and off chest pain. As per she did have cardiac angiogram few years ago which was reported normal. 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 In the ER she was found to have a right lower lobe pneumonia hence hospitalist service was consulted for further evaluation management. She has received 2 g of ceftriaxone and 500 mg of IV azithromycin for now. Examination patient lying comfortably in bed saturating 96% on 2 L of oxygen supplementation having persistent cough with a fever of 100.9 Fahrenheit. Hospital Course Hospital Course Patient admitted for septic shock secondary to pneumonia. Found to have strep pneumo and MRSA in sputum. She is to complete IV vancomycin course x 14 days total to treat for pneumonia. Last day 03/06. She will be getting her antibiotic at dialysis. Dr. Colon at dialysis will be following the trough levels for the vancomycin. Patient is a dialysis patient Thursday. She had dialysis done today. Also during hospital stay she had an elevated troponin initially with a delta of 500. It was recommended that she do a stress test inpatient to rule out underlying heart disease however patient was unable to stay compliant to diet and I talk with patient's daughter as well on the phone and talk with nursing staff. Patient is unable to follow diet instructions at this time. After discussion with patient's daughter it was dec ided to pursue workup as an outpatient for this. She will be medically managed at this time. I have started her on aspirin Plavix atorvastatin, metoprolol tartrate twice daily. She also completed 5 days of steroids while in the hospital. Echo did not show any gross wall motion abnormalities. She does have severe mitral regurgitation. Moderate pulmonary hypertension. Unsure if the above troponin was due to demand ischemia versus true NSTEMI event. She also remains on a heparin drip for the last 4 days which was discontinued day before discharge. Patient will be given an outpatient stress test to do and to follow- up with cardiology as an outpatient. Continue medical management for now. She has been chest pain-free since I have been caring for her. The only time she complained of chest pain was on admission which may have been pleuritic in nature given the nature of her pneumonia and septic shock. Patient discharged home in stable condition. Daughter updated over the phone an d she said her dad also agreed with the management plan at this time. Physical Exam Narrative: General: No acute distress. sitting up in bed appearing comfortable HEENT: PERRLA, EOMI. Chest: Cta bilaterally. Seen in dialysis. Appears comfortable at this time. CVS: Regular rate and rhythm, no murmurs gallops or rubs. Abdomen: Soft, nontender, nondistended, bowel sounds present Neuro: No focal motor or sensory deficits noted. Discharge Data Studies Completed and Pending Completed Studies During Hospitalization Category Date Time Status CTA chest [CT angio chest PE protcl [id number]] Stat Cat Scan 02/20/23 19:55 Completed XR chest 1V portable [id number] Stat Exams 02/20/23 16:29 Completed CV. echo complete* [id number] Routine Ultrasound 02/21/23 06:00 Completed Pending at discharge Category Date Time Status Sestamibi Stress Test Request Routine Exams 02/24/23 13:31 Ordered Basic Metabolic Panel [facility] 02/26/23 04:00 Ordered Blood Cultures ([facility]) Routine Lab 02/20/23 17:39 Results Blood Cultures ([facility]) Routine Lab 02/20/23 17:43 Results Complete Blood Count w/Auto [facility] 02/26/23 04:00 Ordered Magnesium AM [facility] 02/26/23 04:00 Ordered Urinalysis Routine Lab 02/20/23 19:45 Uncollected Vancomycin Random [facility] 02/26/23 04:00 Ordered Vancomycin Random [facility] 02/27/23 04:00 Ordered NM pham perf SPECT r/s* [id number] Routine Nuc Med 02/26/23 08:00 Ordered Radiology Impressions Chest X-Ray 02/20/23 16:29 IMPRESSION: Interval new area consolidated opacity laterally within the mid right lung from prior exam last month. This would favor acute consolidated infiltrate or pneumonia, though for follow-up with treatment. Chest CTA 02/20/23 19:55 IMPRESSION: 1. No CT findings to indicate pulmonary embolus. 2. Large area of consolidated infiltrate with partial air bronchograms about the posterior inferior upper right lung and mid to lateral mid right lung, as well as posterior right lung base with minimal or trace right parapneumonic effusion. Basilar atelectasis. Follow-up with treatment recommended. Laboratory Results WBC 8.58 10^3/uL (3.29-11.43) 02/25/23 04:34 RBC 2.95 10^6/uL (3.85-5.65) L 02/25/23 04:34 Hgb 9.10 g/dL (11.27-16.99) L 02/25/23 04:34 Hct 29.1 % (36-47) L 02/25/23 04:34 MCV 98.6 fl (85-98) H 02/25/23 04:34 MCH 30.8 pg (27-33) 02/25/23 04:34 MCHC 31.3 g/dL (30-55) 02/25/23 04:34 RDW 17.7 % (12.1-15.1) H 02/25/23 04:34 Plt Count 304 10^3/cmm (157-399) 02/25/23 04:34 MPV 10.8 fL (7.4-10.4) H 02/25/23 04:34 Neut % (Auto) 85.6 % 02/25/23 04:34 Lymph % (Auto) 5.8 % 02/25/23 04:34 [place] % (Auto) 6.2 % 02/25/23 04:34 Eos % (Auto) 0.0 % 02/25/23 04:34 Baso % (Auto) 0.3 % 02/25/23 04:34 Neut # (Auto) 7.34 10^3/uL (1.8-7.7) 02/25/23 04:34 Lymph # (Auto) 0.5 10^3/uL (0.8-4.8) L 02/25/23 04:34 [place] # (Auto) 0.5 10^3/uL (0.2-0.9) 02/25/23 04:34 Eos # (Auto) 0.0 10^3/uL (0.0-0.8) 02/25/23 04:34 Baso # (Auto) 0.0 10^3/uL (0.0-0.1) 02/25/23 04:34 Nucleated RBC % (auto) 2.4 % 02/25/23 04:34 Nucleated RBCs # 0.2 /100WBC 02/25/23 04:34 PT 14.10 SECONDS (12.1-14.9) 02/20/23 17:07 INR 1.05 (0.8-1.2) 02/20/23 17:07 APTT 56.7 SECONDS (23.9-36.7) H 02/24/23 17:56 Specimen Type Arterial 02/20/23 22:25 Sample Site Brachial, left 02/20/23 22:25 ABG pH 7.48 (7.35-7.45) H 02/20/23 22:25 ABG pCO2 44.7 mmHg (35-45) 02/20/23 22:25 ABG pO2 54.2 mmHg (80.0-100.0) L 02/20/23 22:25 ABG PO2/FiO2 Ratio 0 02/20/23 22:25 ABG HCO3 32.9 mmol/L (22-26) H 02/20/23 22:25 ABG O2 Saturation 92.4 02/20/23 22:25 ABG Base Excess 8.5 mmol/L (-2.0-2.0) H 02/20/23 22:25 Kenny Test Pos 02/20/23 22:25 A-a O2 Gradient 11.5 mmHg (5-10) H 02/20/23 22:25 Hematocrit 27.5 % (37-47) L 02/20/23 22:25 Hgb O2 Saturation 90.2 % (95-100) L 02/20/23 22:25 Carboxyhemoglobin 2.1 %THgb (0.4-20.1) 02/20/23 22:25 Methemoglobin 0.2 % (0.4-1.5) L 02/20/23 22:25 Total Hemoglobin 9.0 g/dL (12-16) L 02/20/23 22:25 Sodium 139.0 mmol/L (131-143) 02/20/23 22:25 Potassium 3.6 mmol/L (3.5-5.0) 02/20/23 22:25 Glucose 109.0 mg/dL (70-115) 02/20/23 22:25 Ionized Calcium 1.1 mmol/L (1.1-1.4) 02/20/23 22:25 O2 Delivery Device Nc 02/20/23 22:25 O2 Liters/Min 2.0 % 02/20/23 22:25 FiO2 28.0 % 02/20/23 22:25 Senior Housekeeper ID [email or web address] 02/20/23 22:25 Sodium 137 mmol/L (136-145) 02/25/23 04:34 Potassium 4.1 mmol/L (3.5-5.1) 02/25/23 04:34 Chloride 96 mmol/L (98-107) L 02/25/23 04:34 Carbon Dioxide 24 mmol/L (22-29) 02/25/23 04:34 Anion Gap 21.1 (5-19) H 02/25/23 04:34 BUN 63 mg/dL (8-23) H 02/25/23 04:34 Creatinine 4.3 mg/dL (0.5-0.9) H 02/25/23 04:34 GFR Calculation Not Reportable 02/25/23 04:34 Glucose 135 mg/dL (65-115) H 02/25/23 04:34 Estimat Average Glucose 88 02/21/23 03:33 Hemoglobin A1c 4.7 % (4.0-6.0) 02/21/23 03:33 Calculated Osmolality 304 mOsm/kg (285-295) H 02/25/23 04:34 Lactic Acid 3.2 mmol/L (0.5-2.2) H 02/20/23 17:07 Lactic Acid (Sepsis) 2.5 mmol/L (0.5-2.2) H 02/20/23 17:43 Calcium 8.3 mg/dL (8.5-10.5) L 02/25/23 04:34 Phosphorus 4.0 mg/dL (2.5-4.5) 02/23/23 05:55 Magnesium 1.9 mg/dL (1.7-2.3) 02/23/23 05:55 Iron 22 ug/dL (37-145) L 02/20/23 19:20 TIBC 162 mcg/dl 02/20/23 19:20 % Saturation 13.5 % (20-50) L 02/20/23 19:20 Unsat Iron Binding 140 ug/dL (112-347) 02/20/23 19:20 Total Bilirubin 0.2 mg/dL (0.15-1.2) 02/23/23 05:55 AST 46 U/L (0-32) H 02/23/23 05:55 ALT 20 U/L (0-33) 02/23/23 05:55 Alkaline Phosphatase 70 U/L (35-105) 02/23/23 05:55 Troponin T Baseline 218 ng/L (0-10) H* 02/20/23 17:07 Troponin T 120 Minute 209.0 ng/L (0-10) H 02/20/23 19:20 Delta Troponin T -9.0 ABS# (0-10) L 02/20/23 19:20 Troponin T Hi Sens 6Hr 810.2 ng/L (0-10) H 02/20/23 23:53 Troponin T Hi Sens 6Hr Delta 592.2 ng/L (0-12) H* 02/20/23 23:53 NT-Pro-B Natriuret Pep > 48792 pg/mL (0-125) H 02/20/23 17:07 Total Protein 6.7 g/dL (6.6-8.7) 02/23/23 05:55 Albumin 3.3 g/dL (3.5-5.2) L 02/23/23 05:55 Globulin 3.4 g/dL (1.3-4.6) 02/23/23 05:55 Triglycerides 34 mg/dL (0-150) 02/21/23 03:33 Cholesterol 128 mg/dL (0-200) 02/21/23 03:33 LDL Cholesterol, Calc 39 mg/dL (50-129) L 02/21/23 03:33 HDL Cholesterol 82 mg/dL (60-100) 02/21/23 03:33 LDL/HDL Ratio 0.48 RATIO (0.00-3.22) 02/21/23 03:33 Cholesterol/HDL Ratio 1.56 mg/dL (0.0-4.40) 02/21/23 03:33 Vitamin B12 > 2000 pg/mL (232-1245) H 02/20/23 19:47 Folate > 20.0 ng/mL (4.8-37.3) 02/21/23 03:33 Procalcitonin 36.76 ng/mL (0-0.5) H 02/21/23 03:33 TSH 1.22 uIU/mL (0.27-4.20) 02/20/23 19:20 Random Vancomycin 10.9 ug/mL (20.0-40.0) L 02/25/23 04:34 Adenovirus (PCR) Not detected (NOT DETECT) 02/20/23 19:49 C. pneumoniae DNA (PCR) Not detected (NOT DETECT) 02/20/23 19:49 Coronavirus 229E (PCR) Not detected (NOT DETECT) 02/20/23 19:49 Hep Bs Antigen Non-reactive (Nonreactive) 02/22/23 13:54 Hep Bs Antibody 556.1 (11.5-1000) 02/22/23 13:54 Human Metapneumovir PCR Not detected (NOT DETECT) 02/20/23 19:49 Influenza A (H1) PCR Not detected (NOT DETECT) 02/20/23 19:49 Influ A (H1/09) PCR Not detected (NOT DETECT) 02/20/23 19:49 Influenza A (H3) PCR Not detected (NOT DETECT) 02/20/23 19:49 Influenza Type A (PCR) Not detected (NOT DETECT) 02/20/23 19:49 Influenza Type B (PCR) Not detected (NOT DETECT) 02/20/23 19:49 M. pneumoniae (PCR) Not detected (NOT DETECT) 02/20/23 19:49 Parainfluenza 1 (PCR) Not detected (NOT DETECT) 02/20/23 19:49 Parainfluenza 2 (PCR) Not detected (NOT DETECT) 02/20/23 19:49 Parainfluenza 3 (PCR) Not detected (NOT DETECT) 02/20/23 19:49 Parainfluenza 4 (PCR) Not detected (NOT DETECT) 02/20/23 19:49 RSV Type A (PCR) Not detected (NOT DETECT) 02/20/23 19:49 RSV Type B (PCR) Not detected (NOT DETECT) 02/20/23 19:49 Entero/Rhino (PCR) Not detected (NOT DETECT) 02/20/23 19:49 SARS-CoV-2 (PCR) Not detected (NOT DETECT) 02/20/23 19:49 MRSA (PCR) Not detected (NOT DETECTED) 02/20/23 01:30 Vitals Last Vital Signs Temp 98.6 F 02/25/23 11:42 Pulse 89 02/25/23 11:42 Resp 15 02/25/23 11:42 BP 152/62 02/25/23 13:49 Pulse Ox 93 02/25/23 11:42 O2 Del Method Room Air 02/25/23 11:42 O2 Flow Rate 2 02/24/23 13:49 FiO2 28 02/21/23 01:16 Discharge Plan Discharge Patient Disposition: Home Condition: Stable Prescriptions: New atorvastatin 40 mg Tablet 40 mg PO BEDTIME Qty: 30 0RF aspirin 81 mg Tablet,Delayed Release (Dr/Ec) 81 mg PO DAILY Qty: 30 0RF metoprolol tartrate 25 mg Tablet 12.5 mg PO BID@0900,2100 Qty: 30 0RF Plavix 75 mg tablet 75 mg PO DAILY Qty: 30 0RF famotidine 20 mg tablet 20 mg PO BID Qty: 60 0RF Continued Prolia 60 mg/mL syringe 60 mg SUBCUT .[id number] clobetasol 0.05 % cream 1 applic topical BID 14 Days Qty: 60 3RF Rx Instructions: Start BID to arms/legs x 2 wks alternating with triamcinolone triamcinolone acetonide 0.1 % cream 1 applic topical BID Qty: 453.6 1RF Rx Instructions: To arms,legs BID no more than 2 wks/mo alt with clobetasol mupirocin 2 % ointment 1 applic topical BID Qty: 22 1RF Rx Instructions: to arm until healed nifedipine 30 mg tablet extended release 24 hr 30 mg PO DAILY hydrocodone-acetaminophen 10-325 mg tablet 1 tab PO Q4H PRN (Reason: pain) 30 Days Qty: 130 0RF Rx Instructions: may fill 10/30 or thirty days after last refill clonidine HCl 0.1 mg tablet 0.1 mg PO Q6H PRN (Reason: Blood Pressure) fluticasone propion-salmeterol [Advair HFA] 115-21 mcg/actuation HFA aerosol inhaler 2 inh INHALATION BID Qty: 12 0RF Renvela 800 mg tablet 800 mg PO TID alprazolam 0.5 mg tablet 0.5 mg PO DAILY RenaPlex-D 800 mcg-12.5 mg -2,000 unit tablet 1 tab PO DAILY Discontinued amoxicillin 500 mg capsule 500 mg PO BID rosuvastatin 20 mg tablet 20 mg PO DAILY Discharge Orders: Discharge Order (Routine); Ordered 02/25/23 Ordered By: Mandy Valadez Other Ambulatory Orders: Complete Blood Count w/Auto (Q3D) Timeframe: 20230228 Location: Determined by Patient Ordered By: Mandy Valadez Complete Blood Count w/Auto (Q3D) Timeframe: 20230303 Location: Determined by Patient Ordered By: Mandy Valadez Complete Blood Count w/Auto (Q3D) Timeframe: 20230306 Location: Determined by Patient Ordered By: Mandy Valadez Complete Blood Count w/Auto (Q3D) Timeframe: 20230309 Location: Determined by Patient Ordered By: Mandy Valadez Sestamibi Stress Test Request (Routine) Timeframe: 1 Day Facility: [facility] - Location: Cardiac Diagnostic Laboratory Ordered By: Mandy Valadez Referrals: Erwin Layne MD [Primary Care Provider] - 4-7 days (We have notified your physician's clinic of the need for a follow-up appointment to be scheduled. If you have not heard from them within the next 2 business days, please call them directly. ) Dali Farrell MD [Physician] - 4-7 days Discharge Diet: As Directed Discharge Activity: Resume usual activity Patient Instructions: Metoprolol (By mouth), Famotidine (By mouth), Aspirin (By mouth), Atorvastatin (By mouth) (Lipitor, Atorvaliq), Clopidogrel (By mouth), Dialysis Diet (DC), Sepsis (DC), Hypoxia (ED), Hemodialysis (DC), Opioid Safety Activity Restrictions/Additional Instructions: You will need vancomycin IV at dialysis sessions until mar 06, 2023 You will need an outpatient stress test and to follow up with cardiology outpatient Please return to ER should you experience chest pain or shortness of breath. Discharge Attestations Time Spent in Discharge Care*: greater than 30 min Quality Metrics Clinical Quality Measures [ No reported AMI, CVA or VTE this stay] Coding Level of Care Code 07603 Total time (in minutes) for Discharge: 45 Diagnoses Septic shock A41.9; R65.21 Acute respiratory failure with hypoxia J96.01 Community acquired pneumonia J18.9 Laterality: right Lung location: unspecified part of lung ESRD (end stage renal disease) on dialysis N18.6; Z99.2 Elevated troponin R79.89
== END 2023-02-25 16:48 | disposition home or self-care (01) | DRG 871 ==
LOC: ER 19:19 → ICU 20:45 → MEDSURG 02-23 18:39
PROVIDERS: Family Medicine; Hospitalist; Internal Medicine; Student in an Organized Health Care Education/Training Program; Admitting Provider Internal Medicine; Emergency Provider Internal Medicine; PCP Family Medicine; Visit Provider Internal Medicine
DX: A41.9 Sepsis, unspecified organism (principal); J18.9 Pneumonia, unspecified organism; J96.01 Acute respiratory failure with hypoxia; R65.21 Severe sepsis with septic shock; N18.6 End stage renal disease; I13.2 Hypertensive heart and chronic kidney disease with heart failure and with stage 5 chronic kidney disease, or end stage renal disease; N25.81 Secondary hyperparathyroidism of renal origin; D84.9 Immunodeficiency, unspecified; R79.89 Other specified abnormal findings of blood chemistry; B95.62 Methicillin resistant Staphylococcus aureus infection as the cause of diseases classified elsewhere; B95.3 Streptococcus pneumoniae as the cause of diseases classified elsewhere; I50.9 Heart failure, unspecified; Z99.2 Dependence on renal dialysis; E87.6 Hypokalemia; I27.20 Pulmonary hypertension, unspecified; I08.0 Rheumatic disorders of both mitral and aortic valves; Z91.199 Patient's noncompliance with other medical treatment and regimen due to unspecified reason; J44.9 Chronic obstructive pulmonary disease, unspecified; Z99.81 Dependence on supplemental oxygen; F41.9 Anxiety disorder, unspecified; D63.1 Anemia in chronic kidney disease; M81.0 Age-related osteoporosis without current pathological fracture; G47.33 Obstructive sleep apnea (adult) (pediatric); Z99.89 Dependence on other enabling machines and devices; M05.89 Other rheumatoid arthritis with rheumatoid factor of multiple sites
CPT/HCPCS: 36415; 36592; 36600; 71045; 71275; 80048; 80051; 80053; 80061; 80202; 82330; 82607; 82746; 82805; 83036; 83540; 83550; 83605; 83735; 83880; 84100; 84145; 84443; 84484; 85025; 85049; 85610; 85730; 86403; 86706; 87040; 87070; 87077; 87186; 87205; 87340; 87449; 87486; 87581; 87633; 87641; 90935; 93005; 93306; 94640; 94664; 96365; 96372; 96375; 96376; 99285; C9113; J0360; J0456; J0696; J1644; J2270; J2543; J2920; J3370; J7030; J7050; J7626; P9047; Q3014; Q4081; Q9967

== ENCOUNTER → 2023-05-05 14:21 | Outpatient (BNVA) | payer MEDICARE, SELFPAY | PROVIDERS: PCP Family Medicine; Visit Provider Podiatrist Foot & Ankle Surgery | DX: I73.9 Peripheral vascular disease, unspecified (principal); M20.41 Other hammer toe(s) (acquired), right foot; M20.42 Other hammer toe(s) (acquired), left foot; L60.3 Nail dystrophy; M21.41 Flat foot [pes planus] (acquired), right foot; M21.42 Flat foot [pes planus] (acquired), left foot | CPT/HCPCS: 11721 ==

== ENCOUNTER 2023-06-18 13:33 | Outpatient (CLI) | payer MEDICARE, SELFPAY ==
--- NOTE | 2023-06-18 13:30 | XR_ITS ---
WS: [id number] DEXA (DUAL ENERGY X-RAY ABSORPTIOMETRY) Bone mineral density was performed using a SHADO machine. HISTORY: M81.0 - Age-related osteoporosis without current patholog... COMPARISON: 08/03/2014 Lumbar spine BMD (L1-L4): 0.722 g/cm2 T score: -3.8 Z score: -1.4 Total hip BMD: Left: 0.540 (g/cm2). T score: -3.7 (no units) Z score: -1.6 (no units) Left forearm BMD: 0.539 g/cm2. T score: -3.9 Z score: -1.7 10 year probability of a major osteoporotic fracture is 34.6%. Compared to the prior study from 08/03/2014. Lumbar spine bone mineral density has decreased by 12.8%. LEFT hip bone mineral density has decreased by 11.3%. XR/XR DEXA axial skeleton* 54309 IMPRESSION: OSTEOPOROSIS based upon the WHO classification for females. Significant decrease in bone mineral density of the lumbar spine and LEFT hip s jennifer the prior study.
== END 2023-06-18 13:34 | disposition home or self-care (01) ==
LOC: RAD 13:34
PROVIDERS: PCP Family Medicine; Visit Provider Internal Medicine Rheumatology
DX: M81.0 Age-related osteoporosis without current pathological fracture (principal)
CPT/HCPCS: 77080

== ENCOUNTER → 2023-07-28 15:30 | Outpatient (BNVA) | payer MEDICARE, SELFPAY | PROVIDERS: PCP Family Medicine; Visit Provider Podiatrist Foot & Ankle Surgery | DX: I73.9 Peripheral vascular disease, unspecified (principal); M20.41 Other hammer toe(s) (acquired), right foot; M20.42 Other hammer toe(s) (acquired), left foot; L60.3 Nail dystrophy | CPT/HCPCS: 11721 ==

== ENCOUNTER → 2023-08-11 15:00 | Outpatient (BNVA) | payer MEDICARE, SELFPAY | PROVIDERS: PCP Family Medicine; Visit Provider Internal Medicine Rheumatology | DX: M05.79 Rheumatoid arthritis with rheumatoid factor of multiple sites without organ or systems involvement (principal); M81.0 Age-related osteoporosis without current pathological fracture; N18.6 End stage renal disease; Z99.2 Dependence on renal dialysis; M89.8X9 Other specified disorders of bone, unspecified site; Z79.899 Other long term (current) drug therapy; N18.9 Chronic kidney disease, unspecified | CPT/HCPCS: 36415; 85025; 99204 ==